=== PATIENT | male | born 1935 | race Caucasian/White ===

== ENCOUNTER 2020-02-23 18:52 | Inpatient (IN) | payer MEDICARE ==
[2020-02-23] MEDS: Amlodipine 5 MG TAB PO SCH (21:23)
[2020-02-23] MEDS: Gabapentin 300 MG CAP PO SCH (21:24)
[2020-02-23 23:52] VITALS: BMI 33.0
[2020-02-24] MEDS: Vit A,C & E/Lutein/Minerals Tablet PO SCH (07:54)
[2020-02-24] MEDS: Ascorbic Acid 500 mg Chewable Tablet PO SCH (07:54)
[2020-02-24] MEDS: Gabapentin 300 MG CAP PO SCH ×2 (07:55→21:05)
[2020-02-24] MEDS: Fish Oil 1,000 MG CAP PO SCH (07:55)
[2020-02-24] MEDS: Sucralfate 1 GM TAB PO SCH ×2 (07:55→17:08)
[2020-02-24] MEDS: Lisinopril 20 MG TAB PO SCH (07:55)
[2020-02-24] MEDS: Stress 600 With Zinc 1 TAB PO SCH (07:55)
[2020-02-24] MEDS ORDERED: Metoclopramide HCl 10 MG TAB PO SCH (13:45)
--- NOTE | 2020-02-24 16:54 | HP ---
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 He initially did well there with increasing strength, but continued to have significant pain in his back and weakness in his right leg. He therefore was seen back again at [facility], where he was found to have persistent scar tissue and arthritis in his lumbar spine causing persistent neurogenic claudication in his right leg. He has started on therapy and is improving, but is still very weak and in fact fell immediately after being discharged from [facility] prior to the second surgery. [place] [facility], strengthening, and safety training. His comorbidities include type 2 diabetes with peripheral neuropathy, stable; benign prostatic hypertrophy, stable, no medications; hypertension, controlled to goal; recurrent nausea and vomiting of whole fruit products, which was treated with Carafate and Protonix with good control at the rehab and no recurrence until today when he began to have similar symptoms. PAST MEDICAL HISTORY: Remarkable also for history of a TIA and a CVA, history of abdominal aortic aneurysm, osteoarthritis, Fanconi syndrome and dyslipidemia. This is in addition to his diabetes and hypertension. PAST SURGICAL HISTORY: Positive for the above-mentioned decompressive laminectomy x2, left knee replacement. ALLERGIES: HE IS ALLERGIC TO NEURONTIN AND OXYCODONE. MEDICATIONS: At this time include, 1. Tylenol No. 3 as needed for pain. 2. Amlodipine 10 mg nightly. 3. Gabapentin 300 twice daily. 4. Lisinopril 20 daily. 5. Sucralfate 1 g twice daily. 6. Tizanidine 4 mg as needed at night. 7. Tramadol 50 mg every 6 hours as needed. 8. Pantoprazole 40 mg daily. 9. Multivitamins daily. 10. Lisinopril 20 daily. FAMILY MEDICAL HISTORY: Noncontributory. SOCIAL HISTORY: He lives with his elderly . He is a nonsmoker, nondrinker. REVIEW OF SYSTEMS: HEENT: He denies any headaches, dizziness, change in vision or hearing, hoarseness or dysphagia, but does have the recurrent nausea and vomiting, and describes that his foods going all the way to his epigastric region and then refluxing. PULMONARY: Denies cough, sputum production, pneumonia, asthma or tuberculosis. CARDIOVASCULAR: Denies chest pain, orthopnea, paroxysmal nocturnal dyspnea or edema. GASTROINTESTINAL: See history of present illness. He has no history of nocturnal or daytime indigestion or heartburn, only rarely takes half a Tums after spicy foods. He has no nocturnal pain. No change in bowel movements. GENITOURINARY: Denies dysuria, hematuria or nocturia. MUSCULOSKELETAL: Denies stiffness or swelling in joints or extremities minimal pain. NEUROLOGIC: He has persistent diffuse weakness, right leg greater than the left, but is improving. PHYSICAL EXAMINATION: GENERAL: The patient is an elderly white male, lying in bed, no acute distress. Oriented x3 and cooperative. VITAL SIGNS: Blood pressure of 143/66, temperature 97, pulse 72, respirations 16, and O2 sats 99% on room air. HEENT: Pupils are equal, round, and reactive to light and accommodation. Sclerae anicteric. Conjunctivae pale. Oral mucous membranes well hydrated. NECK: Supple. There are no nodes or masses. JVP is not elevated. LUNGS: Clear. CARDIAC: Regular rhythm. No gallops or murmurs. ABDOMEN: Soft and nontender with no masses or organomegaly. SKIN/EXTREMITIES: No edema, clubbing or cyanosis. There is a healing laminectomy incision. NEUROLOGICAL: There is right leg weakness, but is able to lift off the bed against gravity. There is decreased sensation in both feet. ASSESSMENT: 1. Resolving lumbar laminectomy with neurogenic claudication, slowly improving. We will continue on PT with Tylenol No. 3 as needed for pain and Neurontin 300 mg twice daily also. 2. Recurrent nausea and vomiting improved with Carafate and pantoprazole at [facility], but now recurring and will have Speech evaluate and do possibly modified barium. 3. Hypertension, controlled to goal. Continue lisinopril and amlodipine. Job ID: [id number]
[2020-02-24] MEDS: Amlodipine 5 MG TAB PO SCH (21:05)
[2020-02-25] MEDS: Acetaminophen/Codeine 30-300mg Tablet PO PRN (08:11)
[2020-02-25] MEDS: Sucralfate 1 GM TAB PO SCH ×2 (08:12→16:31)
[2020-02-25] MEDS: Lisinopril 20 MG TAB PO SCH (08:13)
[2020-02-25] MEDS: Vit A,C & E/Lutein/Minerals Tablet PO SCH (08:13)
[2020-02-25] MEDS: Fish Oil 1,000 MG CAP PO SCH (08:13)
[2020-02-25] MEDS: Ascorbic Acid 500 mg Chewable Tablet PO SCH (08:13)
[2020-02-25] MEDS: Gabapentin 300 MG CAP PO SCH ×2 (08:13→21:06)
[2020-02-25] MEDS: Stress 600 With Zinc 1 TAB PO SCH (08:14)
[2020-02-25] MEDS: tiZANidine HCl 4 MG TAB PO PRN (21:06)
[2020-02-25] MEDS: Amlodipine 5 MG TAB PO SCH (21:06)
[2020-02-26] MEDS: Vit A,C & E/Lutein/Minerals Tablet PO SCH (08:45)
[2020-02-26] MEDS: Fish Oil 1,000 MG CAP PO SCH (08:45)
[2020-02-26] MEDS: Sucralfate 1 GM TAB PO SCH ×2 (08:45→16:33)
[2020-02-26] MEDS: Lisinopril 20 MG TAB PO SCH (08:46)
[2020-02-26] MEDS: Ascorbic Acid 500 mg Chewable Tablet PO SCH (08:46)
[2020-02-26] MEDS: Gabapentin 300 MG CAP PO SCH ×2 (08:46→20:20)
[2020-02-26] MEDS: Stress 600 With Zinc 1 TAB PO SCH (08:47)
[2020-02-26] MEDS: Acetaminophen/Codeine 30-300mg Tablet PO PRN (16:34)
[2020-02-26] MEDS: Amlodipine 5 MG TAB PO SCH (20:20)
[2020-02-26] MEDS: tiZANidine HCl 4 MG TAB PO PRN (20:39)
[2020-02-27] MEDS: Acetaminophen/Codeine 30-300mg Tablet PO PRN (05:31)
[2020-02-27] MEDS: Ascorbic Acid 500 mg Chewable Tablet PO SCH (08:05)
[2020-02-27] MEDS: Fish Oil 1,000 MG CAP PO SCH (08:05)
[2020-02-27] MEDS: Gabapentin 300 MG CAP PO SCH ×2 (08:05→21:43)
[2020-02-27] MEDS: Lisinopril 20 MG TAB PO SCH (08:06)
[2020-02-27] MEDS: Vit A,C & E/Lutein/Minerals Tablet PO SCH (08:06)
[2020-02-27] MEDS: Stress 600 With Zinc 1 TAB PO SCH (08:06)
[2020-02-27] MEDS: Sucralfate 1 GM TAB PO SCH ×2 (08:06→16:40)
--- NOTE | 2020-02-27 10:03 | PRG ---
DATE OF SERVICE: 02/26/2020 SUBJECTIVE: The patient feels well, working with therapy. States his leg is still very weak. States he is eating very well with no cough, shortness of breath, dyspnea. OBJECTIVE: VITAL SIGNS: However, his temperature is up to 100.4 this evening, pulse is 89, respirations 18, O2 sats 96% on room air, blood pressure 128/57. LUNGS: Clear. CARDIAC: Showed regular rhythm. ABDOMEN: Soft and nontender. NEUROLOGIC: Shows right leg weakness. ASSESSMENT: 1. Persistent right leg weakness, status post lumbar laminectomy. 2. New onset of low-grade fever, persistent for last 24 hours. We will get CBC and urinalysis. 3. History of dysphagia, but apparently has past speech evaluation. We will monitor closely. 4. The patient wishes to be transferred to Dr. Pacheco as he wishes to become his private physician and therefore transfer to Dr. Pacheco tomorrow. Job ID: [id number]
--- NOTE | 2020-02-27 10:22 | PRG ---
DATE OF SERVICE: 02/25/2020 SUBJECTIVE: The patient feels much better today, has been seen by Speech, found to be safe to swallow with double swallow techniques and sips of water with straw and states that he has done well today with no further problem and is eating well. He is scheduled to do physical therapy tomorrow. He did, however, developed a temperature is 99.7 pulse is 83, respirations 20, O2 saturations 99% on room air, blood pressure 121/53. He has had no cough or shortness of breath. Most recent laboratories at [facility] within normal limits, but we will check again tomorrow. OBJECTIVE: LUNGS: Clear. CARDIAC: Regular rhythm. ABDOMEN: Soft and nontender. SKIN/EXTREMITIES: Display no edema, clubbing, or cyanosis. Right leg still shows significant weakness. ASSESSMENT: Persistent right leg weakness, recurrent lumbar spinal stenosis. Persistent problems with some dysphagia, found to be safe, but now has a temperature of 99.1. We will monitor closely. PLAN: 1. Stress safe swallowing techniques. Start PT tomorrow. Continue sucralfate and pantoprazole. 2. Continue gabapentin and tramadol for pain as well as tizanidine as needed for muscle spasm. 3. Continue to monitor vital signs closely on amlodipine and lisinopril. Job ID: [id number]
[2020-02-27 10:25] LABS: #Basophils 0.1 thou/uL (0.0-0.2); #Eosinphils 0.2 thou/uL (0.0-0.7); #Lymphocytes 0.8 thou/uL (1.20-3.40); #Monocytes 0.6 thou/uL (0.11-0.59); #Neutrophils 9.1 thou/uL (1.40-6.50); %Basophils 0.5 % (0.0-1.0); %Eosinophils 2.1 % (0.0-10.0); %Lymphocytes 7.5 % (21.0-51.0); %Monocytes 5.9 % (0.0-10.0); Hemoglobin 12.6 g/dL (14.0-18.0); Mean Corpuscular HGB CONC 32.7 g/dL (32.0-36.0); Mean Corpuscular Hemoglobin 32.7 pg (27.0-31.0); Mean Platelet Volume 7.6 fL (7.4-10.4); Platelet Count 186 thou/uL (130-400); RBC Distribution Width 12.3 % (11.5-14.5); Red Blood Cell (RBC) Count 3.87 mill/uL (4.70-6.10); White Blood Cell (WBC) Count 10.8 thou/uL (4.8-10.8)
[2020-02-27 10:45] LABS: ALT (SGPT) 20 U/L (8-55); AST (SGOT) 26 U/L (5-34); Albumin 3.1 g/dL (3.4-4.8); Alkaline Phosphatase 56 U/L (40-110); Anion Gap 14 mmol/L (10-20); BUN (Urea Nitrogen) 23 mg/dL (8.4-25.7); Bilirubin, Total 0.7 mg/dL (0.2-1.2); Calc. Creatinine Clearance 81 mL/min (70-130); Calcium 8.2 mg/dL (7.8-10.44); Carbon Dioxide 23 mmol/L (23-31); Chloride 99 mmol/L (98-107); Estimated GFR-MDRD 62; Globulin 2.4 g/dL (2.4-3.5); Glucose 124 mg/dL (83-110); Potassium 4.3 mmol/L (3.5-5.1); Protein, Total 5.5 g/dL (5.8-8.1); Sodium 132 mmol/L (136-145)
--- NOTE | 2020-02-27 13:31 | PRG ---
DATE OF SERVICE: 02/27/2020 SUBJECTIVE: Mr. Lauren is up in his chair. He denies any complaints. He states that his right leg weakness and pain is improving. His acid reflux is doing well. He is eating foods more chopped with extra gravy and that is helping with his dysphagia. OBJECTIVE: VITAL SIGNS: He is afebrile. Heart rate 92, respirations 18, oxygen saturation 95% on room air, blood pressure 122/60. CARDIOVASCULAR: S1 and S2 plus. RESPIRATORY: Normal vesicular breath sounds. ABDOMEN: Soft, obese, nontender. Bowel sounds heard in all quadrants. EXTREMITIES: Without cyanosis or clubbing. CENTRAL NERVOUS SYSTEM: Improving right lower extremity weakness. LABORATORY DATA: White count is 10.8, hemoglobin and hematocrit are 12.6 and 38.7. Sodium 132, potassium 4.3, BUN and creatinine are 23 and 1.13. He has macrocytosis. We will check a vitamin B12 and a folic acid level. IMPRESSION: 1. Right lumbar radiculopathy, status post surgery. 2. Hypertension. 3. Peripheral neuropathy. 4. Gastroesophageal reflux disease. 5. Osteoarthritis. 6. Improving deconditioning. 7. History of TIA and CVA. 8. Fanconi syndrome and dyslipidemia. PLAN: 1. Continue current medications. 2. Heart healthy diet. 3. Monitor blood pressure and adjust medications as needed. 4. Spinal precautions. 5. Physical therapy. 6. DVT prophylaxis with PlexiPulses. 7. Decubitus precautions. 8. Stress ulcer prophylaxis. 9. Check folic acid and B12 due to macrocytosis. 10. Discussed with the patient in detail. All questions answered. Job ID: [id number]
[2020-02-27 13:48] LABS: Bilirubin Negative (Negative); Blood, Urine Negative (Negative); Clarity Clear (Clear); Glucose, Urine (Dipstick) 500 mg/dL (Negative); Ketone, Urine Trace mg/dL (Negative); Leukocyte Negative (Negative); Nitrite Negative (Negative); Protein, Urine (Dipstick) Trace mg/dL (Neg-Trace); Specific Gravity, Urine 1.015 (1.005-1.030); Urobilinogen 0.2 mg/dL (Less than 2); pH, Urine 5.5 (5.0-9.0)
[2020-02-27 13:53] LABS: Urine Culture Reflex No No
--- NOTE | 2020-02-27 13:53 | RAD ---
CHEST 1 VIEW: INDICATION: History of aspiration. COMPARISON: Prior exam dated 04/30/2013. FINDINGS: Lungs are clear. Heart size is normal-appearing. No pleural effusion or pneumothorax is evident. N o acute osseous abnormality is noted. There are vascular calcifications involving the aortic arch. IMPRESSION: No acute cardiopulmonary abnormality. POS: BH
[2020-02-27 14:19] LABS: RBC/HPF None Seen HPF (0-3); WBC/HPF 0-3 HPF (0-3)
[2020-02-27 14:20] LABS: Bacteria/HPF Rare-Few HPF (None Seen); Squamous Epithelial None Seen HPF (0-3)
[2020-02-27] MEDS: Amlodipine 5 MG TAB PO SCH (21:42)
[2020-02-28] MEDS: Acetaminophen/Codeine 30-300mg Tablet PO PRN ×2 (06:17→16:58)
[2020-02-28] MEDS: Ascorbic Acid 500 mg Chewable Tablet PO SCH (08:01)
[2020-02-28] MEDS: Gabapentin 300 MG CAP PO SCH ×2 (08:01→20:55)
[2020-02-28] MEDS: Vit A,C & E/Lutein/Minerals Tablet PO SCH (08:02)
[2020-02-28] MEDS: Sucralfate 1 GM TAB PO SCH ×2 (08:05→16:55)
[2020-02-28] MEDS: Fish Oil 1,000 MG CAP PO SCH (08:05)
[2020-02-28] MEDS: Lisinopril 20 MG TAB PO SCH (08:05)
[2020-02-28] MEDS: Stress 600 With Zinc 1 TAB PO SCH (08:05)
--- NOTE | 2020-02-28 13:32 | PRG ---
DATE OF SERVICE: 02/28/2020 SUBJECTIVE: Mr. Lauren is resting in bed. He states that he feels really fatigued today. He apparently slept decently, but felt really weak after having a good bowel movement. He did participate with therapy and apparently stood for 5 minutes. He looks more anxious and depressed, and he is willing to take an antidepressant. He denies any suicidal or homicidal ideation. No family at bedside. Discussed with Therapy. OBJECTIVE: VITAL SIGNS: He is afebrile, heart rate 81, respirations 18, oxygen saturation 95% on room air, and blood pressure 119/58. CARDIOVASCULAR: S1 and S2 plus. RESPIRATORY: Normal vesicular breath sounds. ABDOMEN: Soft and nontender. Bowel sounds heard in all quadrants. EXTREMITIES: Without cyanosis or clubbing. CENTRAL NERVOUS SYSTEM: Improving right leg weakness. LABORATORY DATA: His folic acid is 17.4 and B12 is 874. IMPRESSION: 1. Macrocytosis with normal folic acid and B12. 2. Lumbar radiculopathy, status post recent surgery. 3. Hyponatremia. 4. Possible depression and anxiety. 5. Hypertension. 6. Peripheral neuropathy. 7. Gastroesophageal reflux disease. 8. Osteoarthritis. 9. Fanconi syndrome. 10. Dyslipidemia. PLAN: 1. Continue current medications, but add Zoloft 50 mg daily. 2. Continue heart-healthy diet. 3. Monitor blood pressure and adjust medications. 4. Spinal precautions. 5. Physical therapy. 6. DVT prophylaxis with PlexiPulses. 7. Decubitus precautions. 8. Routine laboratory values. Job ID: [id number]
[2020-02-28] MEDS: Amlodipine 5 MG TAB PO SCH (20:55)
[2020-02-29] MEDS: Sucralfate 1 GM TAB PO SCH ×2 (08:00→16:17)
[2020-02-29] MEDS: Gabapentin 300 MG CAP PO SCH ×2 (08:00→21:42)
[2020-02-29] MEDS: Lisinopril 20 MG TAB PO SCH (08:01)
[2020-02-29] MEDS: Fish Oil 1,000 MG CAP PO SCH (08:01)
[2020-02-29] MEDS: Vit A,C & E/Lutein/Minerals Tablet PO SCH (08:01)
[2020-02-29] MEDS: Ascorbic Acid 500 mg Chewable Tablet PO SCH (08:01)
[2020-02-29] MEDS: Stress 600 With Zinc 1 TAB PO SCH (08:02)
--- NOTE | 2020-02-29 14:17 | PRG ---
DATE OF SERVICE: 02/29/2020 SUBJECTIVE: He states that he is doing better today. He is up in his chair. They did need to use a lift. He is tolerating his Zoloft. OBJECTIVE: VITAL SIGNS: He is afebrile, heart rate 79, respirations 18, oxygen saturation 93% on room air, and blood pressure 122/56. CARDIOVASCULAR SYSTEM: S1 and S2 plus. RESPIRATORY SYSTEM: Normal vesicular breath sounds. ABDOMEN: Soft, nontender. Bowel sounds heard in all quadrants. EXTREMITIES: Without cyanosis or clubbing. CENTRAL NERVOUS SYSTEM: Improving right-sided weakness. IMPRESSION: 1. Lumbar radiculopathy, status post recent surgery. 2. Hyponatremia, stable. 3. Hypertension. 4. Peripheral neuropathy. 5. Gastroesophageal reflux disease. 6. Osteoarthritis. 7. Dyslipidemia. 8. Fanconi syndrome. PLAN: 1. Continue current medications. 2. Nutritional support with heart healthy diet. 3. DVT prophylaxis with PlexiPulses. 4. Decubitus precautions. 5. Stress ulcer prophylaxis. 6. Recheck BMP in the morning. 7. Physical therapy. 8. Spinal precautions. 9. Continue Zoloft for depression and anxiety. Job ID: [id number]
[2020-02-29] MEDS: Acetaminophen/Codeine 30-300mg Tablet PO PRN (15:13)
[2020-02-29] MEDS: tiZANidine HCl 4 MG TAB PO PRN (15:14)
[2020-02-29] MEDS: Amlodipine 5 MG TAB PO SCH (21:41)
[2020-03-01 05:40] LABS: Anion Gap 13 mmol/L (10-20); BUN (Urea Nitrogen) 17 mg/dL (8.4-25.7); Calc. Creatinine Clearance 101 mL/min (70-130); Carbon Dioxide 23 mmol/L (23-31); Chloride 99 mmol/L (98-107); Estimated GFR-MDRD 79; Glucose 112 mg/dL (83-110); Potassium 4.5 mmol/L (3.5-5.1); Sodium 130 mmol/L (136-145)
[2020-03-01] MEDS: Acetaminophen/Codeine 30-300mg Tablet PO PRN (08:06)
[2020-03-01] MEDS: Sucralfate 1 GM TAB PO SCH ×2 (08:06→17:09)
[2020-03-01] MEDS: Vit A,C & E/Lutein/Minerals Tablet PO SCH (08:08)
[2020-03-01] MEDS: Gabapentin 300 MG CAP PO SCH ×2 (08:08→21:24)
[2020-03-01] MEDS: Fish Oil 1,000 MG CAP PO SCH (08:08)
[2020-03-01] MEDS: Ascorbic Acid 500 mg Chewable Tablet PO SCH (08:09)
[2020-03-01] MEDS: Stress 600 With Zinc 1 TAB PO SCH (08:10)
--- NOTE | 2020-03-01 09:36 | PRG ---
DATE OF SERVICE: 03/01/2020 SUBJECTIVE: Mr. Lauren is up in bed. He denies any questions or concerns. I gave parameters for his blood pressure medicines to nursing. Discussed with therapy. OBJECTIVE: VITAL SIGNS: He is afebrile, heart rate 84, respirations 20, oxygen saturation 96% on room air, blood pressure 119/56. CARDIOVASCULAR SYSTEM: S1 and S2 plus. RESPIRATORY SYSTEM: Normal vesicular breath sounds. ABDOMEN: Soft, nontender. Bowel sounds heard in all quadrants. EXTREMITIES: Without cyanosis or clubbing. CENTRAL NERVOUS SYSTEM: Improving right-sided weakness. IMPRESSION: 1. Lumbar radiculopathy, status post recent surgery with persistent right-sided weakness. 2. Hypertension. 3. Peripheral neuropathy. 4. Gastroesophageal reflux disease. 5. Dyslipidemia. 6. Osteoarthritis. 7. Fanconi syndrome. 8. Hyponatremia. His sodium is 130 today, potassium 4.5, BUN and creatinine are 17 and 0.91. PLAN: 1. Continue current medications. 2. Nutritional support. 3. Spinal precautions. 4. DVT prophylaxis with PlexiPulses. 5. Decubitus precautions. 6. Stress ulcer prophylaxis. 7. Continue therapy. 8. Routine laboratory values. 9. Parameters for his blood pressure medications. Job ID: [id number]
[2020-03-01] MEDS: Lisinopril 20 MG TAB PO SCH (17:07)
[2020-03-01] MEDS: tiZANidine HCl 4 MG TAB PO PRN (21:24)
[2020-03-01] MEDS: Amlodipine 5 MG TAB PO SCH (21:24)
[2020-03-02] MEDS: Ascorbic Acid 500 mg Chewable Tablet PO SCH (09:31)
[2020-03-02] MEDS: Gabapentin 300 MG CAP PO SCH ×2 (09:31→21:02)
[2020-03-02] MEDS: Fish Oil 1,000 MG CAP PO SCH (09:31)
[2020-03-02] MEDS: Lisinopril 20 MG TAB PO SCH (09:31)
[2020-03-02] MEDS: Sucralfate 1 GM TAB PO SCH ×2 (09:32→15:56)
[2020-03-02] MEDS: Vit A,C & E/Lutein/Minerals Tablet PO SCH (09:32)
[2020-03-02] MEDS: Stress 600 With Zinc 1 TAB PO SCH (09:33)
--- NOTE | 2020-03-02 16:00 | PRG ---
DATE OF SERVICE: 03/02/2020 SUBJECTIVE: Mr. Lauren is resting in bed. He denies any complaints other than problems with urination. He is complaining of more of hesitancy and urgency, sounds more like a BPH issue. We will do a urinalysis and a urine culture and start him on Flomax. He is doing well otherwise. OBJECTIVE: VITAL SIGNS: He is afebrile. Heart rate 79, respirations 18, oxygen saturation 94% on room air, blood pressure 134/63. CARDIOVASCULAR: S1 and S2 plus. RESPIRATORY: Normal vesicular breath sounds. ABDOMEN: Soft and nontender. Bowel sounds heard in all quadrants. EXTREMITIES: Without cyanosis or clubbing. CENTRAL NERVOUS SYSTEM: Improving right leg weakness. IMPRESSION: 1. Lumbar radiculopathy, status post surgery with persistent right-sided weakness. 2. Macrocytic anemia with normal B12 and folate. 3. Benign prostatic hypertrophy. 4. Hypertension. 5. Dyslipidemia. 6. Osteoarthritis. 7. Fanconi syndrome. 8. Gastroesophageal reflux disease. 9. Peripheral neuropathy. 10. Hyponatremia, chronic. PLAN: 1. Continue current medications. 2. Add Flomax 0.4 mg at bedtime. 3. Check urinalysis and urine culture. 4. DVT prophylaxis with PlexiPulses. 5. Decubitus precautions. 6. Stress ulcer prophylaxis. 7. Heart-healthy diet. 8. Continue therapy. 9. Routine laboratory values. Job ID: [id number]
[2020-03-02 19:55] LABS: Bilirubin Negative (Negative); Blood, Urine Negative (Negative); Clarity Clear (Clear); Glucose, Urine (Dipstick) 500 mg/dL (Negative); Ketone, Urine Negative (Negative); Leukocyte Negative (Negative); Nitrite Negative (Negative); Protein, Urine (Dipstick) Negative (Neg-Trace)
[2020-03-02 20:08] LABS: Bacteria/HPF None Seen HPF (None Seen); RBC/HPF 0-3 HPF (0-3); Squamous Epithelial None Seen HPF (0-3); Urine Culture Reflex No No; WBC/HPF None Seen HPF (0-3)
[2020-03-02] MEDS: Tamsulosin HCl 0.4 MG CAP PO SCH (21:02)
[2020-03-02] MEDS: Amlodipine 5 MG TAB PO SCH (21:03)
[2020-03-02] MEDS: tiZANidine HCl 4 MG TAB PO PRN (21:05)
[2020-03-03] MEDS: Fish Oil 1,000 MG CAP PO SCH (08:42)
[2020-03-03] MEDS: Lisinopril 20 MG TAB PO SCH (08:42)
[2020-03-03] MEDS: Vit A,C & E/Lutein/Minerals Tablet PO SCH (08:42)
[2020-03-03] MEDS: Sucralfate 1 GM TAB PO SCH ×2 (08:42→17:09)
[2020-03-03] MEDS: Ascorbic Acid 500 mg Chewable Tablet PO SCH (08:43)
[2020-03-03] MEDS: Gabapentin 300 MG CAP PO SCH ×2 (08:43→20:24)
[2020-03-03] MEDS: Stress 600 With Zinc 1 TAB PO SCH (08:44)
--- NOTE | 2020-03-03 11:52 | PRG ---
DATE OF SERVICE: 03/03/2020 SUBJECTIVE: Mr. Lauren is resting in bed. His spouse is in the room. He denies any side effects from the Flomax. All questions answered. I encouraged him to focus on one day at a time and try to do a little bit more each day with therapy. OBJECTIVE: VITAL SIGNS: He is afebrile, heart rate 76, respirations 20, oxygen saturation 92% on room air, and blood pressure 133/63. CARDIOVASCULAR SYSTEM: S1 and S2 plus. RESPIRATORY SYSTEM: Normal vesicular breath sounds. ABDOMEN: Soft and nontender. Bowel sounds heard in all quadrants. EXTREMITIES: Without cyanosis or clubbing. CENTRAL NERVOUS SYSTEM: Grossly nonfocal except for persistent right leg weakness. IMPRESSION: 1. Lumbar radiculopathy. 2. Macrocytic anemia with normal B12 and folic acid. 3. Anemia, likely due to acute blood loss. 4. Hypertension. 5. Dyslipidemia. 6. Fanconi syndrome. 7. Osteoarthritis. 8. Depression. 9. Benign prostatic hypertrophy. PLAN: 1. Continue current medications. 2. Heart healthy diet. 3. Spinal precautions. 4. DVT prophylaxis with PlexiPulses. 5. Decubitus precautions. 6. Stress ulcer prophylaxis. 7. Physical therapy. 8. Routine laboratory values. Job ID: [id number]
[2020-03-03] MEDS: Acetaminophen/Codeine 30-300mg Tablet PO PRN (20:23)
[2020-03-03] MEDS: tiZANidine HCl 4 MG TAB PO PRN (20:24)
[2020-03-03] MEDS: Tamsulosin HCl 0.4 MG CAP PO SCH (20:24)
[2020-03-03] MEDS: Amlodipine 5 MG TAB PO SCH (20:24)
[2020-03-04] MEDS: Fish Oil 1,000 MG CAP PO SCH (08:45)
[2020-03-04] MEDS: Sucralfate 1 GM TAB PO SCH ×2 (08:45→17:40)
[2020-03-04] MEDS: Gabapentin 300 MG CAP PO SCH ×2 (08:45→20:54)
[2020-03-04] MEDS: Ascorbic Acid 500 mg Chewable Tablet PO SCH (08:45)
[2020-03-04] MEDS: Vit A,C & E/Lutein/Minerals Tablet PO SCH (08:45)
[2020-03-04] MEDS: Lisinopril 20 MG TAB PO SCH (08:46)
[2020-03-04] MEDS: Stress 600 With Zinc 1 TAB PO SCH (08:46)
[2020-03-04] MEDS: Acetaminophen/Codeine 30-300mg Tablet PO PRN ×2 (08:52→20:53)
--- NOTE | 2020-03-04 14:04 | PRG ---
DATE OF SERVICE: 03/04/2020 SUBJECTIVE: Mr. Lauren is up in his chair. He just finished his lunch. He feels like the [place] is helping. He denies any questions or concerns. OBJECTIVE: VITAL SIGNS: He is afebrile. Heart rate 93, respirations 18, oxygen saturation 93% on room air, blood pressure 137/64. CARDIOVASCULAR: S1 and S2 plus. RESPIRATORY: Normal vesicular breath sounds. ABDOMEN: Soft, nontender. Bowel sounds heard in all quadrants. EXTREMITIES: Without cyanosis or clubbing. CENTRAL NERVOUS SYSTEM: Right leg weakness and pain from his radiculopathy. IMPRESSION: 1. Hypertension. 2. Dyslipidemia. 3. BPH. 4. Depression and anxiety. 5. Lumbar radiculopathy. 6. Fanconi syndrome. 7. Deconditioning. PLAN: 1. Continue current medications. 2. Heart healthy diet. 3. Monitor urine output. 4. Monitor blood pressure and adjust medications as needed. 5. Physical therapy. 6. DVT prophylaxis with PlexiPulses. 7. Decubitus precautions. 8. Stress ulcer prophylaxis. 9. Routine laboratory values. Job ID: [id number]
[2020-03-04] MEDS: Amlodipine 5 MG TAB PO SCH (20:53)
[2020-03-04] MEDS: tiZANidine HCl 4 MG TAB PO PRN (20:54)
[2020-03-04] MEDS: Tamsulosin HCl 0.4 MG CAP PO SCH (20:54)
[2020-03-05] MEDS: Acetaminophen/Codeine 30-300mg Tablet PO PRN ×2 (08:03→21:10)
[2020-03-05] MEDS: Ascorbic Acid 500 mg Chewable Tablet PO SCH (08:04)
[2020-03-05] MEDS: Sucralfate 1 GM TAB PO SCH ×2 (08:05→17:55)
[2020-03-05] MEDS: Vit A,C & E/Lutein/Minerals Tablet PO SCH (08:05)
[2020-03-05] MEDS: Fish Oil 1,000 MG CAP PO SCH (08:05)
[2020-03-05] MEDS: Lisinopril 20 MG TAB PO SCH (08:06)
[2020-03-05] MEDS: Gabapentin 300 MG CAP PO SCH ×3 (08:06→21:10)
[2020-03-05] MEDS: Stress 600 With Zinc 1 TAB PO SCH (08:06)
--- NOTE | 2020-03-05 13:54 | PRG ---
DATE OF SERVICE: 03/05/2020 SUBJECTIVE: Mr. Lauren is up in his chair. He states that he is not doing as well today as he did yesterday. His urination seems to be improving. No other concerns or questions. OBJECTIVE: VITAL SIGNS: He is afebrile. Heart rate 95, respirations 18, oxygen saturation 97% on room air, blood pressure 119/60. CARDIOVASCULAR: S1 and S2 plus. RESPIRATORY: Normal vesicular breath sounds. ABDOMEN: Soft, nontender. Bowel sounds heard in all quadrants. EXTREMITIES: Without cyanosis or clubbing. IMPRESSION: 1. Lumbar radiculopathy with persistent right-sided weakness. 2. Depression. 3. BPH. 4. Hypertension. 5. Dyslipidemia. 6. Osteoarthritis. 7. Fanconi syndrome. PLAN: 1. Continue current medications. 2. Nutritional support. 3. Heart healthy diet. 4. Continue therapy. 5. Increase gabapentin. 6. DVT prophylaxis with PlexiPulses. 7. Decubitus precautions. 8. Routine laboratory values. Job ID: [id number]
[2020-03-05] MEDS: Amlodipine 5 MG TAB PO SCH (21:10)
[2020-03-05] MEDS: Tamsulosin HCl 0.4 MG CAP PO SCH (21:10)
[2020-03-06] MEDS: Fish Oil 1,000 MG CAP PO SCH (08:19)
[2020-03-06] MEDS: Acetaminophen/Codeine 30-300mg Tablet PO PRN ×2 (08:19→20:47)
[2020-03-06] MEDS: Stress 600 With Zinc 1 TAB PO SCH (08:20)
[2020-03-06] MEDS: Ascorbic Acid 500 mg Chewable Tablet PO SCH (08:20)
[2020-03-06] MEDS: Sucralfate 1 GM TAB PO SCH ×2 (08:20→16:02)
[2020-03-06] MEDS: Gabapentin 300 MG CAP PO SCH ×3 (08:20→20:48)
[2020-03-06] MEDS: Vit A,C & E/Lutein/Minerals Tablet PO SCH (08:20)
[2020-03-06] MEDS: Lisinopril 20 MG TAB PO SCH (08:21)
--- NOTE | 2020-03-06 13:27 | PRG ---
DATE OF SERVICE: 03/06/2020 SUBJECTIVE: Mr. Lauren is doing well. He states that he is feeling better today than yesterday, apparently did better with therapy. He does have some red spots in his right thigh, but they are not causing him any pain. He is not having any shooting or burning pain. He does have history of shingles, but he states they are usually painful and he usually gets them in the left lower back. Denies any itching. Denies any drainage. We will continue to monitor. His mood is also better. OBJECTIVE: VITAL SIGNS: He is afebrile, heart rate 80, respirations 18, oxygen saturation 96% on room air, blood pressure 122/59. CARDIOVASCULAR: S1 and S2 plus. RESPIRATORY: Normal vesicular breath sounds. ABDOMEN: Soft and nontender. Bowel sounds heard in all quadrants. EXTREMITIES: Without cyanosis or clubbing. CENTRAL NERVOUS SYSTEM: Right leg weakness. IMPRESSION: 1. Hypertension. 2. Dyslipidemia. 3. Osteoarthritis. 4. Fanconi syndrome. 5. Depression. 6. Lumbar radiculopathy to the right leg. PLAN: 1. Continue current medications. 2. Heart healthy diet. 3. Monitor blood pressure and adjust medications. 4. Spinal precautions. 5. Physical therapy. 6. Continue Flomax for his BPH. 7. Routine laboratory values. 8. Monitor the rash in his right leg. Job ID: [id number]
[2020-03-06] MEDS: Tamsulosin HCl 0.4 MG CAP PO SCH (20:48)
[2020-03-06] MEDS: Amlodipine 5 MG TAB PO SCH (20:48)
[2020-03-07] MEDS: Vit A,C & E/Lutein/Minerals Tablet PO SCH (08:20)
[2020-03-07] MEDS: Lisinopril 20 MG TAB PO SCH (08:21)
[2020-03-07] MEDS: Ascorbic Acid 500 mg Chewable Tablet PO SCH (08:21)
[2020-03-07] MEDS: Acetaminophen/Codeine 30-300mg Tablet PO PRN ×2 (08:21→22:00)
[2020-03-07] MEDS: Sucralfate 1 GM TAB PO SCH ×2 (08:21→16:54)
[2020-03-07] MEDS: Fish Oil 1,000 MG CAP PO SCH (08:21)
[2020-03-07] MEDS: Gabapentin 300 MG CAP PO SCH ×3 (08:21→21:49)
[2020-03-07] MEDS: Stress 600 With Zinc 1 TAB PO SCH (08:22)
--- NOTE | 2020-03-07 13:44 | PRG ---
DATE OF SERVICE: 03/07/2020 SUBJECTIVE: Mr. Lauren is doing the same. Denies any concerns recently. He is improving with therapy. OBJECTIVE: VITAL SIGNS: He is afebrile, heart rate 88, respirations 18, oxygen saturation 100% on room air, blood pressure 130/60. CARDIOVASCULAR: S1 and S2 plus. RESPIRATORY: Normal vesicular breath sounds. ABDOMEN: Soft and nontender. Bowel sounds heard in all quadrants. EXTREMITIES: Without cyanosis or clubbing. IMPRESSION: 1. Lumbar spine radiculopathy. 2. Hypertension. 3. Dyslipidemia. 4. Osteoarthritis. 5. Fanconi syndrome. 6. Benign prostatic hypertrophy. 7. Depression. PLAN: 1. Continue current medications. 2. Heart healthy diet. 3. Spinal precautions. 4. DVT prophylaxis with PlexiPulses. 5. Decubitus precautions. 6. Stress ulcer prophylaxis. 7. Routine laboratory values. Job ID: [id number]
[2020-03-07] MEDS: Tamsulosin HCl 0.4 MG CAP PO SCH (21:49)
[2020-03-07] MEDS: Amlodipine 5 MG TAB PO SCH (21:49)
[2020-03-07] MEDS: tiZANidine HCl 4 MG TAB PO PRN (22:00)
[2020-03-08] MEDS: Gabapentin 300 MG CAP PO SCH ×3 (08:06→20:36)
[2020-03-08] MEDS: Fish Oil 1,000 MG CAP PO SCH (08:06)
[2020-03-08] MEDS: Vit A,C & E/Lutein/Minerals Tablet PO SCH (08:06)
[2020-03-08] MEDS: Sucralfate 1 GM TAB PO SCH ×2 (08:06→17:00)
[2020-03-08] MEDS: Ascorbic Acid 500 mg Chewable Tablet PO SCH (08:06)
[2020-03-08] MEDS: Stress 600 With Zinc 1 TAB PO SCH (08:07)
[2020-03-08] MEDS: Lisinopril 20 MG TAB PO SCH (08:08)
[2020-03-08] MEDS: Amlodipine 5 MG TAB PO SCH (20:35)
[2020-03-08] MEDS: Tamsulosin HCl 0.4 MG CAP PO SCH (20:36)
[2020-03-09] MEDS: Sucralfate 1 GM TAB PO SCH ×2 (07:50→17:04)
[2020-03-09] MEDS: Lisinopril 20 MG TAB PO SCH (07:51)
[2020-03-09] MEDS: Ascorbic Acid 500 mg Chewable Tablet PO SCH (07:51)
[2020-03-09] MEDS: Vit A,C & E/Lutein/Minerals Tablet PO SCH (07:51)
[2020-03-09] MEDS: Fish Oil 1,000 MG CAP PO SCH (07:51)
[2020-03-09] MEDS: Gabapentin 300 MG CAP PO SCH ×3 (07:51→21:49)
[2020-03-09] MEDS: Stress 600 With Zinc 1 TAB PO SCH (07:52)
[2020-03-09] MEDS: Acetaminophen/Codeine 30-300mg Tablet PO PRN ×2 (08:28→21:52)
[2020-03-09] MEDS: Amlodipine 5 MG TAB PO SCH (21:49)
[2020-03-09] MEDS: Tamsulosin HCl 0.4 MG CAP PO SCH (21:49)
[2020-03-09] MEDS: tiZANidine HCl 4 MG TAB PO PRN (21:49)
--- NOTE | 2020-03-10 07:00 | PRG ---
DATE OF SERVICE: 03/09/2020 SUBJECTIVE: The patient lying in bed, feels well. He states that his leg is getting better, but still not where he wishes to be. OBJECTIVE: EXTREMITIES: The patient is able to dorsiflex his right foot and lift his foot off the bed with assistance. VITAL SIGNS: Show his temperature is 97, pulse 71, respirations 16, O2 saturations 97% on room air, and blood pressure 116/74. LUNGS: Clear. CARDIAC: Shows regular rhythm. ABDOMEN: Soft and nontender. ASSESSMENT: 1. Persistent right lumbar radiculopathy, status post repeat decompression laminectomy. 2. Benign prostatic hyperplasia, stable. 3. Depression, stable. 4. Hypertension, controlled to goal. PLAN: 1. Continue PT/OT. 2. Continue DVT and stress ulcer prophylaxis. 3. The patient to follow up with Neurosurgery next week at his request. Job ID: [id number]
[2020-03-10] MEDS: Sucralfate 1 GM TAB PO SCH ×2 (07:49→16:42)
[2020-03-10] MEDS: Ascorbic Acid 500 mg Chewable Tablet PO SCH (08:45)
[2020-03-10] MEDS: Vit A,C & E/Lutein/Minerals Tablet PO SCH (08:45)
[2020-03-10] MEDS: Lisinopril 20 MG TAB PO SCH (08:45)
[2020-03-10] MEDS: Fish Oil 1,000 MG CAP PO SCH (08:45)
[2020-03-10] MEDS: Gabapentin 300 MG CAP PO SCH ×3 (08:45→20:28)
[2020-03-10] MEDS: Stress 600 With Zinc 1 TAB PO SCH (08:46)
[2020-03-10] MEDS: Acetaminophen/Codeine 30-300mg Tablet PO PRN ×2 (14:49→20:28)
--- NOTE | 2020-03-10 20:15 | PRG ---
DATE OF SERVICE: 03/10/[address] Greg Tai. SUBJECTIVE: The patient is sitting in a chair, feels well, but still unable to lift his foot off the floor or extend his knee. He is having some tenderness in his knee, but not on passive movement. OBJECTIVE: VITAL SIGNS: Shows temperature is 96, pulse 75, respirations 18, O2 saturations 96% on room air, blood pressure 137/64. LUNGS: Clear. CARDIAC: Showed regular rhythm. ABDOMEN: Soft and nontender. SKIN AND EXTREMITIES: Show no edema, clubbing, or cyanosis. Right lower leg extension is very weak. ASSESSMENT: 1. Persistent right lumbar radiculopathy. 2. Stable hypertension. 3. Stable benign prostatic hypertrophy. PLAN: 1. Continue PT and OT. 2. Continue DVT and stress ulcer prophylaxis. 3. Continue current medications. Job ID: [id number]
[2020-03-10] MEDS: tiZANidine HCl 4 MG TAB PO PRN (20:28)
[2020-03-10] MEDS: Amlodipine 5 MG TAB PO SCH (20:28)
[2020-03-10] MEDS: Tamsulosin HCl 0.4 MG CAP PO SCH (20:28)
[2020-03-11] MEDS: Gabapentin 300 MG CAP PO SCH ×3 (09:20→20:56)
[2020-03-11] MEDS: Fish Oil 1,000 MG CAP PO SCH (09:20)
[2020-03-11] MEDS: Sucralfate 1 GM TAB PO SCH ×2 (09:20→17:20)
[2020-03-11] MEDS: Vit A,C & E/Lutein/Minerals Tablet PO SCH (09:20)
[2020-03-11] MEDS: Ascorbic Acid 500 mg Chewable Tablet PO SCH (09:20)
[2020-03-11] MEDS: Stress 600 With Zinc 1 TAB PO SCH (09:21)
[2020-03-11] MEDS: Lisinopril 20 MG TAB PO SCH (09:21)
--- NOTE | 2020-03-11 13:12 | PRG ---
DATE OF SERVICE: 03/11/2020 SUBJECTIVE: Mr. German is up in his chair. He just finished his lunch. He states that he is doing better. The pain seems to be under control. OBJECTIVE: VITAL SIGNS: He is afebrile, heart rate 83, respirations 20, oxygen saturation 98% on room air, blood pressure 137/61. CARDIOVASCULAR: S1 and S2 plus. RESPIRATORY: Normal vesicular breath sounds. ABDOMEN: Soft and nontender. Bowel sounds heard in all quadrants. EXTREMITIES: Without cyanosis or clubbing. CENTRAL NERVOUS SYSTEM: Right leg radiculopathy and weakness. IMPRESSION: 1. Lumbar radiculopathy, status post surgery, now with persistent right-sided weakness. 2. Hypertension. 3. Dyslipidemia. 4. Benign prostatic hypertrophy. 5. Fanconi syndrome. PLAN: 1. Continue current medications. 2. Heart healthy diet. 3. Continue current medications. 4. DVT prophylaxis with PlexiPulses. 5. Decubitus precautions. 6. Stress ulcer prophylaxis. 7. Schedule appointment with Dr. Townsend for followup. He apparently does not have a followup appointment, just to see if there is anything else that can be done. 8. Continue therapy. 9. Routine laboratory values. Job ID: [id number]
[2020-03-11] MEDS: Tamsulosin HCl 0.4 MG CAP PO SCH (20:56)
[2020-03-11] MEDS: Amlodipine 5 MG TAB PO SCH (20:56)
[2020-03-11] MEDS: tiZANidine HCl 4 MG TAB PO PRN (20:57)
--- NOTE | 2020-03-12 05:17 | PRG ---
DATE OF SERVICE: 03/08/2020 SUBJECTIVE: Mr. Lauren is doing the same. Denies any complaints. Resting comfortably. OBJECTIVE: VITAL SIGNS: He is afebrile. Heart rate is 84, respirations 20, oxygen saturation 93% on room air, blood pressure 132/76. CARDIOVASCULAR: S1 and S2 plus. RESPIRATORY: Normal vesicular breath sounds. ABDOMEN: Soft, nontender. Bowel sounds heard in all quadrants. EXTREMITIES: Without cyanosis or clubbing. CENTRAL NERVOUS SYSTEM: Persistent right leg weakness. IMPRESSION: 1. Lumbar radiculopathy, status post decompression with persistent right leg weakness. 2. Fanconi syndrome. 3. Hypertension. 4. Dyslipidemia. 5. BPH. 6. Neuropathic pain. PLAN: 1. Continue current medications. 2. Heart healthy diet. 3. Monitor blood pressure and adjust medications. 4. Monitor urination. 5. Physical therapy. 6. Follow up with Neurosurgery. 7. Routine laboratory values. 8. Discussed with the patient in detail. All questions answered. 9. Dr. Burnett on-call this weekend. Job ID: [id number]
[2020-03-12] MEDS: Acetaminophen/Codeine 30-300mg Tablet PO PRN ×3 (09:04→20:50)
[2020-03-12] MEDS: Ascorbic Acid 500 mg Chewable Tablet PO SCH (09:05)
[2020-03-12] MEDS: Sucralfate 1 GM TAB PO SCH ×2 (09:05→16:31)
[2020-03-12] MEDS: Vit A,C & E/Lutein/Minerals Tablet PO SCH (09:05)
[2020-03-12] MEDS: Gabapentin 300 MG CAP PO SCH ×3 (09:06→20:50)
[2020-03-12] MEDS: Lisinopril 20 MG TAB PO SCH (09:06)
[2020-03-12] MEDS: Fish Oil 1,000 MG CAP PO SCH (09:06)
[2020-03-12] MEDS: Stress 600 With Zinc 1 TAB PO SCH (09:10)
--- NOTE | 2020-03-12 12:48 | PRG ---
DATE OF SERVICE: 03/12/2020 SUBJECTIVE: Mr. Lauren is up in his chair. He just finished his lunch. He denies any questions or concerns. He feels like the Flomax is helping, but he still does not feel like the strong enough. Plan is to change it to twice daily. He apparently stood up in the standing frame for a little while. He has a followup appointment with his neurosurgeon coming Wednesday. No family at bedside. OBJECTIVE: VITAL SIGNS: He is afebrile, heart rate 79, respirations 20, oxygen saturation 99% on room air, and blood pressure 118/56. CARDIOVASCULAR: S1 and S2 plus. RESPIRATORY: Normal vesicular breath sounds. ABDOMEN: Soft, nontender. Bowel sounds heard in all quadrants. EXTREMITIES: Without cyanosis or clubbing. CENTRAL NERVOUS SYSTEM: Persistent right-sided weakness. IMPRESSION: 1. Benign prostatic hypertrophy. 2. Hypertension. 3. Dyslipidemia. 4. Osteoarthritis. 5. Fanconi syndrome. 6. Lumbar radiculopathy, status post decompression. PLAN: 1. Continue current medication, but increase Flomax to b.i.d. 2. Heart healthy diet. 3. Spinal precautions. 4. DVT prophylaxis with PlexiPulses. 5. Decubitus precautions. 6. Stress ulcer prophylaxis. 7. Continue therapy. 8. Routine laboratory values. 9. Follow up with Neurosurgery on Wednesday. 10. Monitor urine output. Job ID: [id number]
[2020-03-12] MEDS: Tamsulosin HCl 0.4 MG CAP PO SCH (20:49)
[2020-03-12] MEDS: tiZANidine HCl 4 MG TAB PO PRN (20:49)
[2020-03-12] MEDS: Amlodipine 5 MG TAB PO SCH (20:50)
[2020-03-13] MEDS: Fish Oil 1,000 MG CAP PO SCH (07:53)
[2020-03-13] MEDS: Ascorbic Acid 500 mg Chewable Tablet PO SCH (07:53)
[2020-03-13] MEDS: Sucralfate 1 GM TAB PO SCH ×2 (07:53→17:20)
[2020-03-13] MEDS: Gabapentin 300 MG CAP PO SCH ×3 (07:53→20:48)
[2020-03-13] MEDS: Tamsulosin HCl 0.4 MG CAP PO SCH ×2 (07:53→20:48)
[2020-03-13] MEDS: Vit A,C & E/Lutein/Minerals Tablet PO SCH (07:54)
[2020-03-13] MEDS: Stress 600 With Zinc 1 TAB PO SCH (07:54)
[2020-03-13] MEDS: Lisinopril 20 MG TAB PO SCH (07:54)
--- NOTE | 2020-03-13 13:36 | PRG ---
DATE OF SERVICE: 03/13/2020 SUBJECTIVE: Mr. Lauren is up in his chair. He states that he had a good day today with therapy. Tolerating the twice a day tamsulosin. Denies any questions or concerns. He states that his is wondering whether he will need a power lift at home and I advised him that I will have to talk with Therapy and see, because if he falls, I do not want his lifting him up with the fracture without any medical evaluation. OBJECTIVE: VITAL SIGNS: He is afebrile. Heart rate 78, respirations 18, oxygen saturation 95% on room air, blood pressure 106/53. CARDIOVASCULAR: S1, S2 plus. RESPIRATORY: Normal vesicular breath sounds. ABDOMEN: Soft, nontender. Bowel sounds heard in all quadrants. EXTREMITIES: Without cyanosis or clubbing. IMPRESSION: 1. Lumbar radiculopathy, status post decompression with persistent right-sided weakness. 2. Hypertension. 3. Dyslipidemia. 4. Benign prostatic hypertrophy. 5. Osteoarthritis. 6. Fanconi syndrome. 7. Depression. PLAN: 1. Continue current medications. 2. Nutritional support with heart-healthy diet. 3. Spinal precautions. 4. DVT prophylaxis with PlexiPulses. 5. Decubitus precautions. 6. Stress ulcer prophylaxis. 7. Routine laboratory values. 8. Continue therapy. Job ID: [id number]
[2020-03-13] MEDS: Amlodipine 5 MG TAB PO SCH (20:48)
[2020-03-13] MEDS: Acetaminophen/Codeine 30-300mg Tablet PO PRN (20:50)
[2020-03-13] MEDS: tiZANidine HCl 4 MG TAB PO PRN (20:51)
[2020-03-14] MEDS: Sucralfate 1 GM TAB PO SCH ×2 (07:46→16:14)
[2020-03-14] MEDS: Lisinopril 20 MG TAB PO SCH (07:47)
[2020-03-14] MEDS: Gabapentin 300 MG CAP PO SCH ×3 (07:47→20:16)
[2020-03-14] MEDS: Tamsulosin HCl 0.4 MG CAP PO SCH ×2 (07:47→20:16)
[2020-03-14] MEDS: Ascorbic Acid 500 mg Chewable Tablet PO SCH (07:47)
[2020-03-14] MEDS: Fish Oil 1,000 MG CAP PO SCH (07:47)
[2020-03-14] MEDS: Stress 600 With Zinc 1 TAB PO SCH (07:47)
[2020-03-14] MEDS: Vit A,C & E/Lutein/Minerals Tablet PO SCH (07:49)
--- NOTE | 2020-03-14 13:00 | PRG ---
DATE OF SERVICE: 03/14/2020 SUBJECTIVE: Mr. Lauren is doing well up in his chair and just finished lunch. He apparently stood a lot longer on the standing frame. His apparently spoke with Dr. Townsend and he apparently stated that there was a brace that is available that he can use which will help him walk and I advised him to make sure he discuss that further with the neurosurgeon during his visit tomorrow. OBJECTIVE: VITAL SIGNS: He is afebrile, heart rate 71, respirations 18, oxygen saturation 99% on room air, blood pressure 129/60. CARDIOVASCULAR: S1 and S2 plus. RESPIRATORY: Normal vesicular breath sounds. ABDOMEN: Soft and nontender. Bowel sounds heard in all quadrants. EXTREMITIES: Without cyanosis or clubbing. CENTRAL NERVOUS SYSTEM: Persistent right leg weakness. IMPRESSION: 1. Lumbar radiculopathy, status post decompression with persistent right leg weakness. 2. Hypertension. 3. Peripheral neuropathy. 4. Depression. 5. Benign prostatic hypertrophy. 6. Osteoarthritis. 7. Fanconi syndrome. PLAN: 1. Continue current medications. 2. Heart healthy diet. 3. Monitor blood pressure and adjust medications. 4. Neurosurgical precautions. 5. Physical therapy. 6. Routine laboratory values. 7. DVT prophylaxis with PlexiPulses. 8. Decubitus precautions. 9. Stress ulcer prophylaxis. 10. Routine laboratory values. Job ID: [id number]
[2020-03-14] MEDS: Acetaminophen/Codeine 30-300mg Tablet PO PRN ×2 (14:03→22:30)
[2020-03-14] MEDS: Amlodipine 5 MG TAB PO SCH (20:16)
[2020-03-14] MEDS: tiZANidine HCl 4 MG TAB PO PRN (22:33)
[2020-03-15] MEDS: Ascorbic Acid 500 mg Chewable Tablet PO SCH (08:47)
[2020-03-15] MEDS: Stress 600 With Zinc 1 TAB PO SCH (08:47)
[2020-03-15] MEDS: Fish Oil 1,000 MG CAP PO SCH (08:47)
[2020-03-15] MEDS: Tamsulosin HCl 0.4 MG CAP PO SCH ×2 (08:48→20:12)
[2020-03-15] MEDS: Lisinopril 20 MG TAB PO SCH (08:48)
[2020-03-15] MEDS: Vit A,C & E/Lutein/Minerals Tablet PO SCH (08:48)
[2020-03-15] MEDS: Sucralfate 1 GM TAB PO SCH ×2 (08:48→16:31)
[2020-03-15] MEDS: Gabapentin 300 MG CAP PO SCH ×3 (08:48→20:12)
--- NOTE | 2020-03-15 10:46 | PRG ---
DATE OF SERVICE: 03/15/2020 SUBJECTIVE: Mr. Lauren is up in his chair. He states that the twice a day Flomax is really helping. He is scheduled to see his neurosurgeon this afternoon. He apparently stood for about 12 minutes on a standing drain. He is happy with his progress. OBJECTIVE: VITAL SIGNS: He is afebrile. Heart rate 70, respirations 16, oxygen saturation 100% on room air, blood pressure 123/59. CARDIOVASCULAR: S1 and S2 plus. RESPIRATORY: Normal vesicular breath sounds. ABDOMEN: Soft, nontender. Bowel sounds heard in all quadrants. EXTREMITIES: Without cyanosis or clubbing. CENTRAL NERVOUS SYSTEM: Persistent right leg weakness, otherwise nonfocal. IMPRESSION: 1. Lumbar radiculopathy, status post decompression with persistent right-sided weakness. 2. Hypertension. 3. Dyslipidemia. 4. Osteoarthritis. 5. BPH. 6. Fanconi syndrome. 7. Depression and anxiety. PLAN: 1. Continue current medications. 2. Nutritional support with heart healthy diet. 3. Await opinion by neurosurgeon. 4. Continue spinal precautions. 5. DVT prophylaxis with PlexiPulses. 6. Decubitus precaution. 7. Stress ulcer prophylaxis. 8. Routine laboratory values. 9. Continue therapy. Job ID: [id number]
[2020-03-15] MEDS: traMADol HCl 50 MG TAB PO PRN (16:30)
[2020-03-15] MEDS: Acetaminophen/Codeine 30-300mg Tablet PO PRN (20:11)
[2020-03-15] MEDS: tiZANidine HCl 4 MG TAB PO PRN (20:12)
[2020-03-15] MEDS: Amlodipine 5 MG TAB PO SCH (20:12)
[2020-03-16] MEDS: Gabapentin 300 MG CAP PO SCH ×3 (08:29→20:13)
[2020-03-16] MEDS: Sucralfate 1 GM TAB PO SCH ×2 (08:29→17:36)
[2020-03-16] MEDS: Stress 600 With Zinc 1 TAB PO SCH (08:29)
[2020-03-16] MEDS: Tamsulosin HCl 0.4 MG CAP PO SCH ×2 (08:29→20:13)
[2020-03-16] MEDS: Ascorbic Acid 500 mg Chewable Tablet PO SCH (08:29)
[2020-03-16] MEDS: Lisinopril 20 MG TAB PO SCH (08:30)
[2020-03-16] MEDS: Vit A,C & E/Lutein/Minerals Tablet PO SCH (08:30)
[2020-03-16] MEDS: Fish Oil 1,000 MG CAP PO SCH (08:30)
--- NOTE | 2020-03-16 15:39 | PRG ---
DATE OF SERVICE: 03/16/2020 SUBJECTIVE: Mr. Lauren is up in bed. Denies any complaints at his lunch. He apparently is a little disappointment that he thought he had an appointment with his neurosurgeon yesterday, but it was with his PA, so the PA apparently has noted down all his concerns and we will have Dr. Townsend follow him on Wednesday. OBJECTIVE: VITAL SIGNS: The patient is afebrile. Heart rate 81, respirations 24, oxygen saturation 97% on room air, blood pressure 117/59. CARDIOVASCULAR: S1-S2 plus. RESPIRATORY: Normal vesicular breath sounds. ABDOMEN: Soft, nontender. Bowel sounds heard in all quadrants. EXTREMITIES: Without cyanosis, clubbing. CENTRAL NERVOUS SYSTEM: Persistent right leg weakness with gradual improvement. IMPRESSION: 1. Hypertension. 2. Osteoarthritis. 3. Dyslipidemia. 4. Fanconi syndrome. 5. History of transient ischemic attack and cerebrovascular accident. 6. Lumbar radiculopathy, status post decompressive with persistent weakness. 7. Benign prostatic hypertrophy. 8. Depression and anxiety. PLAN: 1. The patient wants to be on a regular diet. He is aware of the risks. We will switch him over to a regular diet. 2. Continue current medications. 3. Monitor blood pressure and adjust medications. 4. Continue therapy. 5. Spinal precautions. 6. Routine laboratory values. 7. DVT prophylaxis with PlexiPulses. 8. Decubitus precautions. 9. Stress ulcer prophylaxis. Job ID: [id number]
[2020-03-16] MEDS: Acetaminophen/Codeine 30-300mg Tablet PO PRN (20:13)
[2020-03-16] MEDS: Amlodipine 5 MG TAB PO SCH (20:13)
[2020-03-16] MEDS: tiZANidine HCl 4 MG TAB PO PRN (20:13)
[2020-03-17] MEDS: Gabapentin 300 MG CAP PO SCH ×3 (08:06→20:58)
[2020-03-17] MEDS: Fish Oil 1,000 MG CAP PO SCH (08:06)
[2020-03-17] MEDS: Acetaminophen/Codeine 30-300mg Tablet PO PRN ×3 (08:06→22:11)
[2020-03-17] MEDS: Stress 600 With Zinc 1 TAB PO SCH (08:06)
[2020-03-17] MEDS: Ascorbic Acid 500 mg Chewable Tablet PO SCH (08:06)
[2020-03-17] MEDS: Vit A,C & E/Lutein/Minerals Tablet PO SCH (08:06)
[2020-03-17] MEDS: Tamsulosin HCl 0.4 MG CAP PO SCH ×2 (08:07→20:58)
[2020-03-17] MEDS: Sucralfate 1 GM TAB PO SCH ×2 (08:07→16:16)
[2020-03-17] MEDS: Lisinopril 20 MG TAB PO SCH (08:07)
--- NOTE | 2020-03-17 15:11 | PRG ---
DATE OF SERVICE: 03/17/2020 SUBJECTIVE: Mr. Lauren is sleeping, but arousable. He denies any questions or concerns. He is enjoying his Wednesday. No family at bedside. Discussed with nursing. OBJECTIVE: VITAL SIGNS: He is afebrile, heart rate 87, respirations 16, oxygen saturation 97% on room air, blood pressure 139/68. CARDIOVASCULAR: S1 and S2 plus. RESPIRATORY: Normal vesicular breath sounds. ABDOMEN: Soft, nontender. Bowel sounds heard in all quadrants. EXTREMITIES: Without cyanosis or clubbing. CENTRAL NERVOUS SYSTEM: Persistent right-sided weakness and pain in the right leg. IMPRESSION: 1. Lumbar radiculopathy, status post decompression with persistent right leg weakness and pain. 2. Hypertension. 3. Dyslipidemia. 4. Osteoarthritis. 5. Fanconi syndrome. 6. Benign prostatic hypertrophy. 7. Depression and anxiety. PLAN: 1. Continue current medications. 2. Heart healthy diet. 3. DVT prophylaxis with PlexiPulses. 4. Decubitus precautions. 5. Stress ulcer prophylaxis. 6. Spinal precautions. 7. Physical therapy. 8. Routine laboratory values. Job ID: [id number]
[2020-03-17] MEDS: Amlodipine 5 MG TAB PO SCH (20:58)
[2020-03-17] MEDS: tiZANidine HCl 4 MG TAB PO PRN (22:11)
[2020-03-18] MEDS: Ascorbic Acid 500 mg Chewable Tablet PO SCH (08:30)
[2020-03-18] MEDS: Stress 600 With Zinc 1 TAB PO SCH (08:31)
[2020-03-18] MEDS: Sucralfate 1 GM TAB PO SCH ×2 (08:32→17:00)
[2020-03-18] MEDS: Vit A,C & E/Lutein/Minerals Tablet PO SCH (08:32)
[2020-03-18] MEDS: Fish Oil 1,000 MG CAP PO SCH (08:32)
[2020-03-18] MEDS: Tamsulosin HCl 0.4 MG CAP PO SCH ×2 (08:32→20:00)
[2020-03-18] MEDS: Lisinopril 20 MG TAB PO SCH (08:33)
[2020-03-18] MEDS: Gabapentin 300 MG CAP PO SCH ×3 (08:33→20:00)
--- NOTE | 2020-03-18 13:30 | PRG ---
DATE OF SERVICE: 03/18/2020 SUBJECTIVE: Mr. Lauren is resting in bed. He denies any complaints. He just finished his lunch. He apparently stood for 10 minutes in the standing frame. He is waiting to hear back from Dr. Townsend about his concerns over the meeting he had with his PA last Wednesday. OBJECTIVE: VITAL SIGNS: The patient is afebrile, heart rate 69, respirations 18, oxygen saturation 99% on room air, and blood pressure 121/58. CARDIOVASCULAR: S1 and S2 plus. RESPIRATORY: Normal vesicular breath sounds. ABDOMEN: Soft and nontender. Bowel sounds heard in all quadrants. EXTREMITIES: Without cyanosis or clubbing. CENTRAL NERVOUS SYSTEM: Persistent right leg weakness and pain. IMPRESSION: 1. Lumbar radiculopathy, status post decompression with persistent right-sided weakness and pain. 2. Hypertension. 3. Osteoarthritis. 4. Benign prostatic hyperplasia. 5. Depression and anxiety. 6. Deconditioning. PLAN: 1. Continue current medications. 2. Heart healthy diet. 3. Nutritional support. 4. DVT prophylaxis. 5. Decubitus precautions. 6. Stress ulcer prophylaxis. 7. Continue therapy. 8. Routine laboratory values. Job ID: [id number]
[2020-03-18] MEDS: Acetaminophen/Codeine 30-300mg Tablet PO PRN (15:07)
[2020-03-18] MEDS: traMADol HCl 50 MG TAB PO PRN (19:59)
[2020-03-18] MEDS: tiZANidine HCl 4 MG TAB PO PRN (19:59)
[2020-03-18] MEDS: Amlodipine 5 MG TAB PO SCH (20:00)
[2020-03-19] MEDS: Vit A,C & E/Lutein/Minerals Tablet PO SCH (08:39)
[2020-03-19] MEDS: Ascorbic Acid 500 mg Chewable Tablet PO SCH (08:39)
[2020-03-19] MEDS: Gabapentin 300 MG CAP PO SCH ×3 (08:39→21:06)
[2020-03-19] MEDS: Tamsulosin HCl 0.4 MG CAP PO SCH ×2 (08:39→21:06)
[2020-03-19] MEDS: Sucralfate 1 GM TAB PO SCH ×2 (08:39→17:12)
[2020-03-19] MEDS: Fish Oil 1,000 MG CAP PO SCH (08:39)
[2020-03-19] MEDS: Stress 600 With Zinc 1 TAB PO SCH (08:39)
[2020-03-19] MEDS: Lisinopril 20 MG TAB PO SCH (08:40)
--- NOTE | 2020-03-19 14:03 | PRG ---
DATE OF SERVICE: 03/19/2020 SUBJECTIVE: Mr. Lauren is resting in bed. He just had his lunch. He denies any questions or concerns. He apparently stood up for about 13 minutes on a standing frame. He states that his still does not heard anything from Dr. Townsend. OBJECTIVE: VITAL SIGNS: He is afebrile. Heart rate 75, respirations 18, oxygen saturation 98% on room air, blood pressure 109/58. CARDIOVASCULAR: S1 and S2 plus. RESPIRATORY: Normal vesicular breath sounds. ABDOMEN: Soft, nontender. Bowel sounds heard in all quadrants. EXTREMITIES: Without cyanosis or clubbing. Peripheral pulses are palpable. CENTRAL NERVOUS SYSTEM: Generalized weakness especially right-sided. IMPRESSION: 1. Lumbar radiculopathy, status post decompression and persistent right-sided weakness. 2. Hypertension. 3. Dyslipidemia. 4. Osteoarthritis. 5. BPH. 6. Depression and anxiety. 7. Deconditioning. PLAN: 1. Continue current medications. 2. Heart healthy diet. 3. Monitor blood pressure and adjust medications as needed. 4. He states that for some reason he is back on a heart healthy diet and I will check on it, I could change it to regular. 5. DVT prophylaxis for PlexiPulses. 6. Decubitus precautions. 7. Stress ulcer prophylaxis. 8. Routine laboratory values. Job ID: [id number]
[2020-03-19] MEDS: Acetaminophen/Codeine 30-300mg Tablet PO PRN (18:32)
[2020-03-19] MEDS: Amlodipine 5 MG TAB PO SCH (21:05)
[2020-03-19] MEDS: traMADol HCl 50 MG TAB PO PRN (21:06)
[2020-03-19] MEDS: tiZANidine HCl 4 MG TAB PO PRN (21:06)
[2020-03-20] MEDS: Acetaminophen/Codeine 30-300mg Tablet PO PRN ×2 (09:18→19:59)
[2020-03-20] MEDS: Fish Oil 1,000 MG CAP PO SCH (09:26)
[2020-03-20] MEDS: Ascorbic Acid 500 mg Chewable Tablet PO SCH (09:26)
[2020-03-20] MEDS: Stress 600 With Zinc 1 TAB PO SCH (09:27)
[2020-03-20] MEDS: Vit A,C & E/Lutein/Minerals Tablet PO SCH (09:27)
[2020-03-20] MEDS: Sucralfate 1 GM TAB PO SCH ×2 (09:27→17:50)
[2020-03-20] MEDS: Tamsulosin HCl 0.4 MG CAP PO SCH ×2 (09:27→20:00)
[2020-03-20] MEDS: Gabapentin 300 MG CAP PO SCH ×3 (09:27→20:00)
[2020-03-20] MEDS: Lisinopril 20 MG TAB PO SCH (09:29)
--- NOTE | 2020-03-20 18:02 | PRG ---
DATE OF SERVICE: 03/20/2020 SUBJECTIVE: Mr. Lauren is up in his chair and denies any complaints. He states that his urination is much improved. He apparently is slowly getting stronger with therapy, but he continues to have right leg pain and weakness. He denies any questions or concerns. No family at bedside. OBJECTIVE: VITAL SIGNS: He is afebrile. Heart rate is 89, respirations are 18, oxygen saturation 98% on room air, blood pressure 105/55. CARDIOVASCULAR SYSTEM: S1-S2 plus. RESPIRATORY SYSTEM: Normal vesicular breath sounds. ABDOMEN: Soft and nontender. Bowel sounds heard in all quadrants. EXTREMITIES: Without cyanosis or clubbing. CENTRAL NERVOUS SYSTEM: Persistent right leg weakness and pain. IMPRESSION: 1. Lumbar radiculopathy, status post decompression and persistent right leg weakness. 2. Hypertension. 3. Dyslipidemia. 4. Osteoarthritis. 5. Fanconi syndrome. 6. BPH. 7. Depression. 8. Deconditioning. PLAN: 1. Continue current medications. 2. Nutritional support. 3. DVT prophylaxis with PlexiPulses. 4. Decubitus precautions. 5. Stress ulcer prophylaxis. 6. Routine laboratory values. 7. Continue therapy. Job ID: [id number]
[2020-03-20] MEDS: Amlodipine 5 MG TAB PO SCH (20:00)
[2020-03-20] MEDS: tiZANidine HCl 4 MG TAB PO PRN (20:00)
[2020-03-21] MEDS: Fish Oil 1,000 MG CAP PO SCH (07:36)
[2020-03-21] MEDS: Gabapentin 300 MG CAP PO SCH ×3 (07:36→20:52)
[2020-03-21] MEDS: Vit A,C & E/Lutein/Minerals Tablet PO SCH (07:36)
[2020-03-21] MEDS: Ascorbic Acid 500 mg Chewable Tablet PO SCH (07:36)
[2020-03-21] MEDS: Tamsulosin HCl 0.4 MG CAP PO SCH ×2 (07:37→20:52)
[2020-03-21] MEDS: Sucralfate 1 GM TAB PO SCH ×2 (07:38→16:08)
[2020-03-21] MEDS: Stress 600 With Zinc 1 TAB PO SCH (07:39)
[2020-03-21] MEDS: Lisinopril 20 MG TAB PO SCH (07:44)
--- NOTE | 2020-03-21 13:56 | PRG ---
DATE OF SERVICE: 03/21/2020 SUBJECTIVE: Mr. Lauren is doing well. He apparently did some stationary bicycling at the gym. He is happy with his progress. He denies any questions or concerns. No family at bedside. OBJECTIVE: VITAL SIGNS: He is afebrile, heart rate 86, respirations 18, oxygen saturation 93% on room air, and blood pressure is 116/61. CARDIOVASCULAR: S1 and S2 plus. RESPIRATORY: Normal vesicular breath sounds. ABDOMEN: Soft and nontender. Bowel sounds heard in all quadrants. EXTREMITIES: Without cyanosis or clubbing. CENTRAL NERVOUS SYSTEM: Persistent right leg weakness and pain. IMPRESSION: 1. Hypertension. 2. Dyslipidemia. 3. Osteoarthritis. 4. Fanconi syndrome. 5. Benign prostatic hypertrophy. 6. Depression and anxiety. 7. Persistent right leg weakness due to lumbar radiculopathy, status post decompression. PLAN: 1. Continue current medications. 2. Heart healthy diet. 3. DVT prophylaxis with PlexiPulses. 4. Decubitus precautions. 5. Stress ulcer prophylaxis. 6. Routine laboratory values. 7. Therapy. 8. Discussed with the patient in detail. All questions answered. Job ID: [id number]
[2020-03-21] MEDS: traMADol HCl 50 MG TAB PO PRN (17:49)
[2020-03-21] MEDS: Amlodipine 5 MG TAB PO SCH (20:52)
[2020-03-21] MEDS: Acetaminophen/Codeine 30-300mg Tablet PO PRN (22:15)
[2020-03-21] MEDS: tiZANidine HCl 4 MG TAB PO PRN (22:16)
[2020-03-22] MEDS: Sucralfate 1 GM TAB PO SCH ×2 (08:14→16:16)
[2020-03-22] MEDS: Fish Oil 1,000 MG CAP PO SCH (08:14)
[2020-03-22] MEDS: Ascorbic Acid 500 mg Chewable Tablet PO SCH (08:14)
[2020-03-22] MEDS: Stress 600 With Zinc 1 TAB PO SCH (08:14)
[2020-03-22] MEDS: Gabapentin 300 MG CAP PO SCH ×3 (08:14→20:43)
[2020-03-22] MEDS: Lisinopril 20 MG TAB PO SCH (08:14)
[2020-03-22] MEDS: Tamsulosin HCl 0.4 MG CAP PO SCH ×2 (08:14→20:43)
[2020-03-22] MEDS: Vit A,C & E/Lutein/Minerals Tablet PO SCH (08:14)
--- NOTE | 2020-03-22 14:30 | PRG ---
DATE OF SERVICE: 03/22/2020 SUBJECTIVE: Mr. Lauren is up in bed. He just finished his lunch. He apparently stood with walker 5 times up and down this morning and he is very excited. No family at bedside. Discussed with nursing. OBJECTIVE: VITAL SIGNS: He is afebrile, heart rate 82, respirations 18, oxygen saturation 96% on room air, and blood pressure 111/55. CARDIOVASCULAR SYSTEM: S1 and S2 plus. RESPIRATORY SYSTEM: Normal vesicular breath sounds. ABDOMEN: Soft, nontender. Bowel sounds heard in all quadrants. EXTREMITIES: Without cyanosis or clubbing. CENTRAL NERVOUS SYSTEM: Right leg weakness and pain. IMPRESSION: 1. Lumbar radiculopathy, status post decompression, now with persistent right leg weakness and pain. 2. Hypertension. 3. Dyslipidemia. 4. Osteoarthritis. 5. Benign prostatic hypertrophy. 6. Depression and anxiety. 7. Fanconi syndrome. PLAN: 1. Continue current medications. 2. Heart healthy diet, but the patient wants to be on a regular diet and aware of the risks. 3. Monitor blood pressure and adjust medications as needed. 4. DVT prophylaxis with PlexiPulses. 5. Decubitus precautions. 6. Stress ulcer prophylaxis. 7. Routine laboratory values. 8. Continue therapy. 9. Discussed with the patient and nursing in detail. All questions answered. Job ID: [id number]
[2020-03-22] MEDS: Amlodipine 5 MG TAB PO SCH (20:43)
[2020-03-22] MEDS: tiZANidine HCl 4 MG TAB PO PRN (20:44)
[2020-03-22] MEDS: Acetaminophen/Codeine 30-300mg Tablet PO PRN (20:44)
[2020-03-23] MEDS: Ascorbic Acid 500 mg Chewable Tablet PO SCH (08:16)
[2020-03-23] MEDS: Vit A,C & E/Lutein/Minerals Tablet PO SCH (08:16)
[2020-03-23] MEDS: Lisinopril 20 MG TAB PO SCH (08:17)
[2020-03-23] MEDS: Gabapentin 300 MG CAP PO SCH ×3 (08:17→20:49)
[2020-03-23] MEDS: Sucralfate 1 GM TAB PO SCH ×2 (08:17→16:20)
[2020-03-23] MEDS: Fish Oil 1,000 MG CAP PO SCH (08:17)
[2020-03-23] MEDS: Stress 600 With Zinc 1 TAB PO SCH (08:17)
[2020-03-23] MEDS: Tamsulosin HCl 0.4 MG CAP PO SCH ×2 (08:17→20:49)
--- NOTE | 2020-03-23 15:50 | PRG ---
DATE OF SERVICE: 03/23/2020 SUBJECTIVE: Mr. Lauren is sleeping, but arousable. He just dozed off after lunch. He denies any questions or concerns. Discussed with Nursing. OBJECTIVE: VITAL SIGNS: He is afebrile, heart rate 69, respirations 22, oxygen saturation 99% on room air, blood pressure is 112/52. CARDIOVASCULAR: S1 and S2 plus. RESPIRATORY: Normal vesicular breath sounds. ABDOMEN: Soft and nontender. Bowel sounds heard in all quadrants. EXTREMITIES: Without cyanosis or clubbing. CENTRAL NERVOUS SYSTEM: Persistent right leg weakness and pain. IMPRESSION: 1. Hypertension. 2. Lumbar radiculopathy, status post decompression with persistent right leg weakness. 3. Benign prostatic hypertrophy. 4. Improving depression. 5. Fanconi syndrome. 6. Osteoarthritis. PLAN: 1. Continue current medications. 2. Heart healthy diet. 3. DVT prophylaxis with PlexiPulses. 4. Decubitus precautions. 5. Stress ulcer prophylaxis. 6. Physical therapy. 7. Routine laboratory values. Job ID: [id number]
[2020-03-23] MEDS: Amlodipine 5 MG TAB PO SCH (20:49)
[2020-03-23] MEDS: Acetaminophen/Codeine 30-300mg Tablet PO PRN (20:49)
[2020-03-23] MEDS: tiZANidine HCl 4 MG TAB PO PRN (20:50)
[2020-03-24] MEDS: Vit A,C & E/Lutein/Minerals Tablet PO SCH (07:59)
[2020-03-24] MEDS: Tamsulosin HCl 0.4 MG CAP PO SCH ×2 (07:59→20:44)
[2020-03-24] MEDS: Stress 600 With Zinc 1 TAB PO SCH (07:59)
[2020-03-24] MEDS: Fish Oil 1,000 MG CAP PO SCH (07:59)
[2020-03-24] MEDS: Gabapentin 300 MG CAP PO SCH ×3 (07:59→20:44)
[2020-03-24] MEDS: Sucralfate 1 GM TAB PO SCH ×2 (07:59→16:10)
[2020-03-24] MEDS: Acetaminophen/Codeine 30-300mg Tablet PO PRN ×2 (08:16→20:45)
[2020-03-24] MEDS: Ascorbic Acid 500 mg Chewable Tablet PO SCH (08:17)
[2020-03-24] MEDS: Lisinopril 20 MG TAB PO SCH (08:17)
[2020-03-24] MEDS: traMADol HCl 50 MG TAB PO PRN (13:00)
--- NOTE | 2020-03-24 14:25 | PRG ---
DATE OF SERVICE: 03/24/2020 SUBJECTIVE: Mr. Lauren is noticing slightly more pain to his right leg. He is rating it as 3/10. He is getting ready to sit up for a little while. His urination is much improved. He denies any other questions or concerns. OBJECTIVE: VITAL SIGNS: He is afebrile. Heart rate is 73, respirations 18, oxygen saturation 96% on room air, blood pressure 123/74. CARDIOVASCULAR: S1 and S2 plus. RESPIRATORY: Normal vesicular breath sounds. ABDOMEN: Soft, nontender. Bowel sounds heard in all quadrants. EXTREMITIES: Without cyanosis or clubbing. CENTRAL NERVOUS SYSTEM: Persistent right leg pain and weakness. IMPRESSION: 1. Lumbar radiculopathy, status post decompression with persistent right leg pain and weakness. 2. Hypertension. 3. BPH. 4. Depression. 5. Fanconi syndrome. 6. Osteoarthritis. PLAN: 1. Continue current medications. 2. Heart healthy diet. 3. DVT prophylaxis with PlexiPulses. 4. Decubitus precautions. 5. Stress ulcer prophylaxis. 6. Routine laboratory values. 7. Continue therapy. Job ID: [id number]
[2020-03-24] MEDS: Amlodipine 5 MG TAB PO SCH (20:44)
[2020-03-24] MEDS: tiZANidine HCl 4 MG TAB PO PRN (20:44)
[2020-03-25] MEDS: Stress 600 With Zinc 1 TAB PO SCH (08:47)
[2020-03-25] MEDS: Vit A,C & E/Lutein/Minerals Tablet PO SCH (08:47)
[2020-03-25] MEDS: Ascorbic Acid 500 mg Chewable Tablet PO SCH (08:47)
[2020-03-25] MEDS: Fish Oil 1,000 MG CAP PO SCH (08:47)
[2020-03-25] MEDS: Sucralfate 1 GM TAB PO SCH ×2 (08:47→16:32)
[2020-03-25] MEDS: Gabapentin 300 MG CAP PO SCH ×3 (08:48→20:43)
[2020-03-25] MEDS: traMADol HCl 50 MG TAB PO PRN ×3 (08:48→20:43)
[2020-03-25] MEDS: Tamsulosin HCl 0.4 MG CAP PO SCH ×2 (08:48→20:43)
[2020-03-25] MEDS: Lisinopril 20 MG TAB PO SCH (08:48)
--- NOTE | 2020-03-25 13:12 | PRG ---
DATE OF SERVICE: 03/25/2020 SUBJECTIVE: Mr. Lauren is up in his chair. He denies any complaints other than mild pain to his right leg. He is participating with therapy. He is urinating well. No other concerns or questions discussed with nursing. OBJECTIVE: VITAL SIGNS: He is afebrile. Heart rate 76, respirations 18, oxygen saturation 97% on room air, blood pressure is 133/65. CARDIOVASCULAR: S1 and S2 plus. RESPIRATORY: Normal vesicular breath sounds. ABDOMEN: Soft, nontender. Bowel sounds heard in all quadrants. EXTREMITIES: Without cyanosis or clubbing. CENTRAL NERVOUS SYSTEM: Improving right leg weakness. IMPRESSION: 1. Lumbar radiculopathy, status post decompression with persistent right leg weakness. 2. Hypertension. 3. Fanconi syndrome. 4. Osteoporosis. 5. BPH. 6. Improving depression. PLAN: 1. Continue current medications. 2. Heart healthy diet. 3. Spinal precautions. 4. Physical therapy. 5. DVT prophylaxis. The patient is actually active enough that he does not need any. 6. Decubitus precaution. 7. Stress ulcer prophylaxis. 8. Therapy. 9. Routine laboratory values. Job ID: [id number]
[2020-03-25] MEDS: tiZANidine HCl 4 MG TAB PO PRN (20:43)
[2020-03-25] MEDS: Amlodipine 5 MG TAB PO SCH (20:43)
[2020-03-26] MEDS: Sucralfate 1 GM TAB PO SCH ×2 (07:51→17:16)
[2020-03-26] MEDS: Fish Oil 1,000 MG CAP PO SCH (07:51)
[2020-03-26] MEDS: Tamsulosin HCl 0.4 MG CAP PO SCH ×2 (08:00→20:44)
[2020-03-26] MEDS: Lisinopril 20 MG TAB PO SCH (08:00)
[2020-03-26] MEDS: Gabapentin 300 MG CAP PO SCH ×3 (08:01→20:43)
[2020-03-26] MEDS: Stress 600 With Zinc 1 TAB PO SCH (08:01)
[2020-03-26] MEDS: Ascorbic Acid 500 mg Chewable Tablet PO SCH (08:01)
[2020-03-26] MEDS: Vit A,C & E/Lutein/Minerals Tablet PO SCH (08:02)
--- NOTE | 2020-03-26 12:33 | PRG ---
DATE OF SERVICE: 03/26/2020 SUBJECTIVE: Mr. Lauren is up in his chair. He just finished his lunch. He denies any questions or concerns. Continues to have some weakness in the right leg and waiting on therapy evaluation this afternoon. His brought in his office visit notes from Neurosurgery and it really does not state much other than followup with them in 6 weeks. OBJECTIVE: VITAL SIGNS: The patient is afebrile. Heart rate 75, respirations 18, oxygen saturations 97% on room air, blood pressure 127/64. CARDIOVASCULAR: S1 and S2 plus. RESPIRATORY: Normal vesicular breath sounds. ABDOMEN: Soft and nontender. Bowel sounds heard in all quadrants. EXTREMITIES: Without cyanosis or clubbing. CENTRAL NERVOUS SYSTEM: Persistent right leg weakness, otherwise nonfocal. IMPRESSION: 1. Persistent right leg weakness due to lumbar radiculopathy. 2. Hypertension. 3. Fanconi syndrome. 4. Benign prostatic hypertrophy. 5. Depression. 6. Deconditioning. PLAN: 1. Check routine laboratory values tomorrow. 2. Nutritional support. 3. Monitor blood pressure. 4. Continue therapy. 5. Await case conference today. Job ID: [id number]
[2020-03-26] MEDS: Amlodipine 5 MG TAB PO SCH (20:43)
[2020-03-26] MEDS: traMADol HCl 50 MG TAB PO PRN (20:43)
[2020-03-26] MEDS: tiZANidine HCl 4 MG TAB PO PRN (20:44)
[2020-03-27 05:31] LABS: #Basophils 0.1 thou/uL (0.0-0.2); #Eosinphils 0.3 thou/uL (0.0-0.7); #Lymphocytes 1.9 thou/uL (1.20-3.40); #Monocytes 0.7 thou/uL (0.11-0.59); #Neutrophils 3.3 thou/uL (1.40-6.50); %Basophils 1.2 % (0.0-1.0); %Eosinophils 4.5 % (0.0-10.0); %Lymphocytes 30.8 % (21.0-51.0); %Monocytes 10.4 % (0.0-10.0); %Neutrophils 53.1 % (42.0-75.0); Hemoglobin 10.4 g/dL (14.0-18.0); Mean Corpuscular HGB CONC 31.6 g/dL (32.0-36.0); Mean Corpuscular Hemoglobin 31.3 pg (27.0-31.0); Mean Corpuscular Volume 99.1 fL (78.0-98.0); Mean Platelet Volume 6.9 fL (7.4-10.4); Platelet Count 206 thou/uL (130-400); Red Blood Cell (RBC) Count 3.31 mill/uL (4.70-6.10); White Blood Cell (WBC) Count 6.2 thou/uL (4.8-10.8)
[2020-03-27 05:48] LABS: Anion Gap 13 mmol/L (10-20); BUN (Urea Nitrogen) 19 mg/dL (8.4-25.7); Calc. Creatinine Clearance 108 mL/min (70-130); Calcium 8.2 mg/dL (7.8-10.44); Carbon Dioxide 23 mmol/L (23-31); Chloride 108 mmol/L (98-107); Estimated GFR-MDRD 86; Glucose 103 mg/dL (83-110); Potassium 3.9 mmol/L (3.5-5.1); Sodium 140 mmol/L (136-145)
[2020-03-27] MEDS: Ascorbic Acid 500 mg Chewable Tablet PO SCH (07:55)
[2020-03-27] MEDS: Fish Oil 1,000 MG CAP PO SCH (07:55)
[2020-03-27] MEDS: Gabapentin 300 MG CAP PO SCH ×3 (07:55→20:31)
[2020-03-27] MEDS: Vit A,C & E/Lutein/Minerals Tablet PO SCH (07:55)
[2020-03-27] MEDS: Stress 600 With Zinc 1 TAB PO SCH (07:55)
[2020-03-27] MEDS: Sucralfate 1 GM TAB PO SCH ×2 (07:55→16:42)
[2020-03-27] MEDS: Lisinopril 20 MG TAB PO SCH (07:56)
[2020-03-27] MEDS: Tamsulosin HCl 0.4 MG CAP PO SCH ×2 (07:56→20:31)
--- NOTE | 2020-03-27 12:52 | PRG ---
DATE OF SERVICE: 03/27/2020 SUBJECTIVE: Mr. Lauren is doing well. He apparently stood about 13-1/2 minutes on the standing frame. He is happy with his progress. OBJECTIVE: VITAL SIGNS: He is afebrile. Heart rate 78, respirations 18, oxygen saturation 96% on room air, blood pressure is 130/59. CARDIOVASCULAR: S1 and S2 plus. RESPIRATORY: Normal vesicular breath sounds. ABDOMEN: Soft and nontender. Bowel sounds heard in all quadrants. EXTREMITIES: Without cyanosis or clubbing. CENTRAL NERVOUS SYSTEM: Persistent right leg weakness and pain. IMPRESSION: 1. Lumbar radiculopathy, status post decompression, now with persistent right leg pain. 2. BPH. 3. Depression. 4. Fanconi syndrome. 5. Hypertension. 6. Osteoarthritis. 7. Deconditioning. PLAN: 1. Continue current medications. 2. Heart healthy diet. 3. Spinal precautions. 4. Physical therapy. 5. Routine laboratory values. His white count is 6.2, H and H are 10.4 and 32.8. Sodium 140, potassium 3.9, BUN and creatinine are 19 and 0.85. 6. Monitor for any other signs or symptoms of bleeding. 7. Discussed with the patient in detail. All questions answered. Job ID: [id number]
[2020-03-27] MEDS: traMADol HCl 50 MG TAB PO PRN ×2 (14:51→20:31)
[2020-03-27] MEDS: tiZANidine HCl 4 MG TAB PO PRN (20:31)
[2020-03-27] MEDS: Amlodipine 5 MG TAB PO SCH (20:32)
[2020-03-28] MEDS: Sucralfate 1 GM TAB PO SCH ×2 (08:25→17:16)
[2020-03-28] MEDS: Vit A,C & E/Lutein/Minerals Tablet PO SCH (08:25)
[2020-03-28] MEDS: Gabapentin 300 MG CAP PO SCH ×3 (08:25→20:38)
[2020-03-28] MEDS: Stress 600 With Zinc 1 TAB PO SCH (08:26)
[2020-03-28] MEDS: Tamsulosin HCl 0.4 MG CAP PO SCH ×2 (08:26→20:38)
[2020-03-28] MEDS: Ascorbic Acid 500 mg Chewable Tablet PO SCH (08:26)
[2020-03-28] MEDS: Lisinopril 20 MG TAB PO SCH (08:27)
[2020-03-28] MEDS: Fish Oil 1,000 MG CAP PO SCH (08:27)
--- NOTE | 2020-03-28 13:25 | PRG ---
DATE OF SERVICE: 03/28/2020 SUBJECTIVE: Mr. Lauren is up in his chair. He apparently stood a total of 21 minutes on the standing frame. He is happy with his progress. He feels like his right leg is finally getting stronger. Denies any questions or concerns. Discussed with nursing. OBJECTIVE: VITAL SIGNS: He is afebrile. Heart rate is 72, respirations 18, blood pressure is 144/66. CARDIOVASCULAR: S1 and S2 plus. RESPIRATORY: Normal vesicular breath sounds. ABDOMEN: Soft and nontender. Bowel sounds heard in all quadrants. EXTREMITIES: Without cyanosis or clubbing. CENTRAL NERVOUS SYSTEM: Improving right leg weakness. IMPRESSION: 1. Lumbar radiculopathy, status post decompression with persistent right leg weakness. 2. Hypertension. 3. Benign prostatic hypertrophy. 4. Depression. 5. Fanconi syndrome. 6. Osteoarthritis. 7. Improving deconditioning. PLAN: 1. Continue current medications. 2. Heart-healthy diet. 3. Spinal precautions. 4. Continue therapy. 5. Routine laboratory values. 6. Discussed with the patient in detail, and all questions answered. Job ID: [id number]
[2020-03-28] MEDS: Amlodipine 5 MG TAB PO SCH (20:36)
[2020-03-28] MEDS: traMADol HCl 50 MG TAB PO PRN (20:38)
[2020-03-28] MEDS: tiZANidine HCl 4 MG TAB PO PRN (20:38)
[2020-03-29] MEDS: Ascorbic Acid 500 mg Chewable Tablet PO SCH (08:14)
[2020-03-29] MEDS: Sucralfate 1 GM TAB PO SCH ×2 (08:14→17:06)
[2020-03-29] MEDS: Tamsulosin HCl 0.4 MG CAP PO SCH ×2 (08:15→20:50)
[2020-03-29] MEDS: Fish Oil 1,000 MG CAP PO SCH (08:15)
[2020-03-29] MEDS: Lisinopril 20 MG TAB PO SCH (08:15)
[2020-03-29] MEDS: Stress 600 With Zinc 1 TAB PO SCH (08:15)
[2020-03-29] MEDS: Gabapentin 300 MG CAP PO SCH ×3 (08:15→20:50)
[2020-03-29] MEDS: Vit A,C & E/Lutein/Minerals Tablet PO SCH (08:16)
--- NOTE | 2020-03-29 09:11 | PRG ---
DATE OF SERVICE: 03/29/2020 SUBJECTIVE: Mr. Lauren is up in bed. He states he had a good night's sleep. He is ready for therapy. No concerns or questions. OBJECTIVE: VITAL SIGNS: He is afebrile. Heart rate 67, respirations 16, oxygen saturation 97% on room air, and blood pressure 126/68. CARDIOVASCULAR SYSTEM: S1 and S2 plus. RESPIRATORY SYSTEM: Normal vesicular breath sounds. ABDOMEN: Soft and nontender. Bowel sounds heard in all quadrants. EXTREMITIES: Without cyanosis or clubbing. CENTRAL NERVOUS SYSTEM: Improving right leg weakness and pain. IMPRESSION: 1. Lumbar radiculopathy. 2. Hypertension. 3. BPH. 4. Depression. 5. Fanconi syndrome. 6. Osteoarthritis. 7. Improving deconditioning. PLAN: 1. Continue current medications. 2. Heart healthy diet. 3. Spinal precautions. 4. Physical therapy. 5. Routine laboratory values. 6. Discharge planning. Job ID: [id number]
[2020-03-29] MEDS: Amlodipine 5 MG TAB PO SCH (20:50)
[2020-03-29] MEDS: traMADol HCl 50 MG TAB PO PRN (20:51)
[2020-03-29] MEDS: tiZANidine HCl 4 MG TAB PO PRN (20:51)
[2020-03-30] MEDS: Stress 600 With Zinc 1 TAB PO SCH (08:18)
[2020-03-30] MEDS: Vit A,C & E/Lutein/Minerals Tablet PO SCH (08:18)
[2020-03-30] MEDS: Gabapentin 300 MG CAP PO SCH ×3 (08:19→20:42)
[2020-03-30] MEDS: Lisinopril 20 MG TAB PO SCH (08:19)
[2020-03-30] MEDS: Tamsulosin HCl 0.4 MG CAP PO SCH ×2 (08:19→20:42)
[2020-03-30] MEDS: Ascorbic Acid 500 mg Chewable Tablet PO SCH (08:19)
[2020-03-30] MEDS: Sucralfate 1 GM TAB PO SCH ×2 (08:19→16:44)
[2020-03-30] MEDS: Fish Oil 1,000 MG CAP PO SCH (08:19)
[2020-03-30] MEDS: Amlodipine 5 MG TAB PO SCH (20:42)
[2020-03-30] MEDS: tiZANidine HCl 4 MG TAB PO PRN (20:43)
[2020-03-30] MEDS: traMADol HCl 50 MG TAB PO PRN (20:43)
[2020-03-31] MEDS: Gabapentin 300 MG CAP PO SCH ×3 (07:47→20:35)
[2020-03-31] MEDS: Vit A,C & E/Lutein/Minerals Tablet PO SCH (07:47)
[2020-03-31] MEDS: Stress 600 With Zinc 1 TAB PO SCH (07:47)
[2020-03-31] MEDS: Ascorbic Acid 500 mg Chewable Tablet PO SCH (07:48)
[2020-03-31] MEDS: Sucralfate 1 GM TAB PO SCH ×2 (07:48→15:53)
[2020-03-31] MEDS: Lisinopril 20 MG TAB PO SCH (07:49)
[2020-03-31] MEDS: Fish Oil 1,000 MG CAP PO SCH (07:49)
[2020-03-31] MEDS: Tamsulosin HCl 0.4 MG CAP PO SCH ×2 (07:50→20:35)
--- NOTE | 2020-03-31 08:10 | PRG ---
DATE OF SERVICE: 03/30/2020 SUBJECTIVE: Patient feels well with no complaints other than the persistent weakness in his right leg. He is somewhat despondent as he feels that he will not be able to walk again, but is working on transfers. OBJECTIVE: VITAL SIGNS: Shows temperature is 98.5, pulse 83, respirations 20, O2 sats 94% on room air, and blood pressure is 139/63. LUNGS: Clear. CARDIAC: Shows regular rhythm. ABDOMEN: Soft and nontender. NEUROLOGIC: Shows persistent right leg weakness. ASSESSMENT: 1. Hypertension, controlled to goal. 2. Lumbar radiculopathy with improving but persistent symptoms of right leg weakness with minimal back pain from his laminectomy. 3. Benign prostatic hypertrophy, stable. 4. Depression, appears to be persistent. PLAN: 1. Continue PT, OT. 2. Attempt to lift patient's spirits. 3. Discuss motorized wheelchair with the patient. 4. Continue heart healthy diet. Job ID: [id number]
--- NOTE | 2020-03-31 18:38 | PRG ---
DATE OF SERVICE: 03/31/2020 SUBJECTIVE: The patient feels well. No complaints. States that he does feel that he is improving with his transfers and is more optimistic about being able to care for himself at home. OBJECTIVE: VITAL SIGNS: Show blood pressure is 136/61, temperature is 98, pulse 80, respiration 19, O2 sats 96% on room air. LUNGS: Clear. CARDIAC: Regular rhythm. NEUROLOGICAL: Shows persistent weakness in the right leg. SKIN/EXTREMITIES: Show decreasing back pain and healing laminectomy. ASSESSMENT: 1. Hypertension, controlled to goal. 2. Persistent right lumbar radiculopathy and leg weakness. 3. Improved depression. 4. Stable BPH. PLAN: 1. Continue PT/OT. 2. Continue pain relief. 3. Dr. Barnhart back tomorrow. Job ID: [id number]
[2020-03-31] MEDS: Amlodipine 5 MG TAB PO SCH (20:35)
[2020-03-31] MEDS: tiZANidine HCl 4 MG TAB PO PRN (20:36)
[2020-03-31] MEDS: traMADol HCl 50 MG TAB PO PRN (20:36)
[2020-04-01] MEDS: Vit A,C & E/Lutein/Minerals Tablet PO SCH (08:39)
[2020-04-01] MEDS: Fish Oil 1,000 MG CAP PO SCH (08:40)
[2020-04-01] MEDS: Lisinopril 20 MG TAB PO SCH (08:40)
[2020-04-01] MEDS: Ascorbic Acid 500 mg Chewable Tablet PO SCH (08:42)
[2020-04-01] MEDS: Sucralfate 1 GM TAB PO SCH ×2 (08:42→16:51)
[2020-04-01] MEDS: Stress 600 With Zinc 1 TAB PO SCH (08:42)
[2020-04-01] MEDS: Tamsulosin HCl 0.4 MG CAP PO SCH ×2 (08:42→21:13)
[2020-04-01] MEDS: Gabapentin 300 MG CAP PO SCH ×3 (08:42→21:13)
--- NOTE | 2020-04-01 13:23 | PRG ---
DATE OF SERVICE: 04/01/2020 SUBJECTIVE: Mr. Lauren is up in his chair. He apparently stood up at 25 minutes on the standing wilkinson. He is happy with his progress. He states his has been looking for some diapers as he is unable to get to the restroom in time and I advised him that I will be glad to fill up a form and not sure if deconditioning qualifies, but we can try. OBJECTIVE: VITAL SIGNS: The patient is afebrile, heart rate 81, respirations 20, oxygen saturation 96% on room air, and blood pressure 121/76. CARDIOVASCULAR SYSTEM: S1 and S2 plus. RESPIRATORY SYSTEM: Normal vesicular breath sounds. ABDOMEN: Soft and nontender. Bowel sounds heard in all quadrants. EXTREMITIES: Without cyanosis or clubbing. CENTRAL NERVOUS SYSTEM: Persistent right leg pain and weakness. IMPRESSION: 1. Lumbar radiculopathy, status post decompression with persistent right leg weakness and pain. 2. Benign prostatic hyperplasia. 3. Hypertension. 4. Depression. 5. Deconditioning. 6. Osteoarthritis. 7. Fanconi syndrome. PLAN: 1. Continue current medications. 2. Heart healthy diet. 3. DVT prophylaxis. The patient is at low risk. 4. Decubitus precautions. 5. Stress ulcer prophylaxis. 6. Physical therapy. 7. Routine laboratory values. Job ID: [id number]
[2020-04-01] MEDS: tiZANidine HCl 4 MG TAB PO PRN (21:13)
[2020-04-01] MEDS: Amlodipine 5 MG TAB PO SCH (21:13)
[2020-04-01] MEDS: traMADol HCl 50 MG TAB PO PRN (21:14)
[2020-04-02] MEDS: Stress 600 With Zinc 1 TAB PO SCH (08:22)
[2020-04-02] MEDS: Vit A,C & E/Lutein/Minerals Tablet PO SCH (08:22)
[2020-04-02] MEDS: Lisinopril 20 MG TAB PO SCH (08:23)
[2020-04-02] MEDS: Gabapentin 300 MG CAP PO SCH ×3 (08:24→20:14)
[2020-04-02] MEDS: Sucralfate 1 GM TAB PO SCH ×2 (08:25→16:44)
[2020-04-02] MEDS: Fish Oil 1,000 MG CAP PO SCH (08:25)
[2020-04-02] MEDS: Ascorbic Acid 500 mg Chewable Tablet PO SCH (08:25)
[2020-04-02] MEDS: Tamsulosin HCl 0.4 MG CAP PO SCH ×2 (08:25→20:14)
--- NOTE | 2020-04-02 13:11 | PRG ---
DATE OF SERVICE: 04/02/2020 SUBJECTIVE: Mr. Lauren is up in his chair. He just finished his lunch. He denies any questions or concerns. He apparently stood up with a walker for a minute or two. Awaiting weekly case conference from therapy for update. OBJECTIVE: VITAL SIGNS: He is afebrile, heart rate 68, respirations 18, oxygen saturation 98% on room air, and blood pressure 115/56. CARDIOVASCULAR SYSTEM: S1 and S2 plus. RESPIRATORY SYSTEM: Normal vesicular breath sounds. ABDOMEN: Soft and nontender. Bowel sounds heard in all quadrants. EXTREMITIES: Without cyanosis or clubbing. IMPRESSION: 1. Right leg persistent pain and weakness due to lumbar radiculopathy. 2. Hypertension. 3. Benign prostatic hyperplasia. 4. Depression, improving. 5. Deconditioning. PLAN: 1. Continue current medications. 2. Nutritional support with heart healthy diet. 3. Monitor blood pressure. 4. Physical therapy. 5. Routine laboratory values. Job ID: [id number]
[2020-04-02] MEDS: tiZANidine HCl 4 MG TAB PO PRN (20:14)
[2020-04-02] MEDS: traMADol HCl 50 MG TAB PO PRN (20:14)
[2020-04-02] MEDS: Amlodipine 5 MG TAB PO SCH (20:14)
[2020-04-03] MEDS: Tamsulosin HCl 0.4 MG CAP PO SCH ×2 (09:37→20:42)
[2020-04-03] MEDS: Vit A,C & E/Lutein/Minerals Tablet PO SCH (09:37)
[2020-04-03] MEDS: Lisinopril 20 MG TAB PO SCH (09:37)
[2020-04-03] MEDS: Ascorbic Acid 500 mg Chewable Tablet PO SCH (09:38)
[2020-04-03] MEDS: Fish Oil 1,000 MG CAP PO SCH (09:38)
[2020-04-03] MEDS: Sucralfate 1 GM TAB PO SCH ×2 (09:38→16:47)
[2020-04-03] MEDS: Gabapentin 300 MG CAP PO SCH ×3 (09:38→20:42)
[2020-04-03] MEDS: Stress 600 With Zinc 1 TAB PO SCH (09:39)
--- NOTE | 2020-04-03 13:16 | PRG ---
DATE OF SERVICE: 04/03/2020 SUBJECTIVE: Mr. Lauren is up in his chair. He apparently almost stood up without any help with the help of a walker today. apparently is not comfortable taking him home if he is unable to stand. I did advise him to think about alternatives if he is not going to get to the position where he is able to stand on his own with the help of a walker. The only option left is for him to consider [facility]. He is opposed to that, but he will think about it. OBJECTIVE: VITAL SIGNS: He is afebrile. Heart rate 84, respirations 18, oxygen saturation 99%, blood pressure 121/76. CARDIOVASCULAR SYSTEM: S1 and S2 plus. RESPIRATORY SYSTEM: Normal vesicular breath sounds. ABDOMEN: Soft and nontender. Bowel sounds heard in all quadrants. EXTREMITIES: Without cyanosis or clubbing. CENTRAL NERVOUS SYSTEM: Persistent right leg weakness. IMPRESSION: 1. Lumbar radiculopathy. 2. Hypertension. 3. BPH. 4. Depression. 5. Fanconi syndrome. 6. Osteoarthritis. PLAN: 1. Continue current medications. 2. Low-sodium diet. 3. Physical therapy. 4. Routine laboratory values. 5. Discharge planning discussed with the patient and all questions answered. Job ID: [id number]
[2020-04-03] MEDS: Amlodipine 5 MG TAB PO SCH (20:42)
[2020-04-03] MEDS: traMADol HCl 50 MG TAB PO PRN (20:42)
[2020-04-03] MEDS: tiZANidine HCl 4 MG TAB PO PRN (20:42)
[2020-04-04] MEDS: Vit A,C & E/Lutein/Minerals Tablet PO SCH (08:43)
[2020-04-04] MEDS: Sucralfate 1 GM TAB PO SCH ×2 (08:44→16:48)
[2020-04-04] MEDS: Ascorbic Acid 500 mg Chewable Tablet PO SCH (08:44)
[2020-04-04] MEDS: Lisinopril 20 MG TAB PO SCH (08:44)
[2020-04-04] MEDS: Gabapentin 300 MG CAP PO SCH ×3 (08:44→20:11)
[2020-04-04] MEDS: Fish Oil 1,000 MG CAP PO SCH (08:44)
[2020-04-04] MEDS: Tamsulosin HCl 0.4 MG CAP PO SCH ×2 (08:44→20:11)
[2020-04-04] MEDS: Stress 600 With Zinc 1 TAB PO SCH (08:44)
--- NOTE | 2020-04-04 13:23 | PRG ---
DATE OF SERVICE: 04/04/2020 SUBJECTIVE: Mr. Lauren is doing well. He apparently slipped off the sliding board and almost fell and did not hurt himself. He was witnessed. He has been monitored. He denies any pain. He states that he stood up with just his walker for a minute. OBJECTIVE: VITAL SIGNS: He is afebrile, heart rate 77, respirations 18, oxygen saturation 96% on room air, and blood pressure 126/58. CARDIOVASCULAR SYSTEM: S1 and S2 plus. RESPIRATORY SYSTEM: Normal vesicular breath sounds. ABDOMEN: Soft and nontender. Bowel sounds heard in all quadrants. EXTREMITIES: Without cyanosis or clubbing. CENTRAL NERVOUS SYSTEM: Persistent right leg weakness and pain. IMPRESSION: 1. Lumbar radiculopathy with persistent right leg weakness. 2. Hypertension. 3. Osteoarthritis. 4. Benign prostatic hypertrophy. 5. Depression. 6. Fanconi syndrome. 7. Osteoarthritis. PLAN: 1. Continue current medications. 2. Heart healthy diet. 3. Physical Therapy. 4. Nutritional support. 5. Routine laboratory values. 6. Continue current medications. Job ID: [id number]
[2020-04-04] MEDS: Amlodipine 5 MG TAB PO SCH (20:11)
[2020-04-04] MEDS: tiZANidine HCl 4 MG TAB PO PRN (20:11)
[2020-04-04] MEDS: traMADol HCl 50 MG TAB PO PRN (20:12)
[2020-04-05] MEDS: Vit A,C & E/Lutein/Minerals Tablet PO SCH (08:31)
[2020-04-05] MEDS: Ascorbic Acid 500 mg Chewable Tablet PO SCH (08:31)
[2020-04-05] MEDS: Fish Oil 1,000 MG CAP PO SCH (08:32)
[2020-04-05] MEDS: Sucralfate 1 GM TAB PO SCH ×2 (08:32→17:21)
[2020-04-05] MEDS: Stress 600 With Zinc 1 TAB PO SCH (08:32)
[2020-04-05] MEDS: Tamsulosin HCl 0.4 MG CAP PO SCH ×2 (08:32→20:42)
[2020-04-05] MEDS: Gabapentin 300 MG CAP PO SCH ×3 (08:33→20:42)
[2020-04-05] MEDS: Lisinopril 20 MG TAB PO SCH (08:34)
--- NOTE | 2020-04-05 08:44 | PRG ---
DATE OF SERVICE: 04/05/2020 SUBJECTIVE: Mr. Lauren is resting in bed. He is complaining of soreness to his right knee as he did that bicycle yesterday. He used to like he is getting stronger. Had a long discussion with his and yesterday his states that she would prefer that he be able to stand on his own with the help of a walker before he comes home to help her take care of him, but she is not requiring that to be the case. She said that if he cannot stand and she will make whatever adjustments she needs. OBJECTIVE: VITAL SIGNS: He is afebrile, heart rate 68, respirations 20, oxygen saturation 97% on room air, and blood pressure 116/56. CARDIOVASCULAR SYSTEM: S1 and S2 plus. RESPIRATORY SYSTEM: Normal vesicular breath sounds. ABDOMEN: Soft and nontender. Bowel sounds heard in all quadrants. EXTREMITIES: Without cyanosis or clubbing. CENTRAL NERVOUS SYSTEM: Persistent right leg weakness. IMPRESSION: 1. Lumbar radiculopathy with right leg weakness. 2. Hypertension. 3. Benign prostatic hyperplasia. 4. Depression. 5. Osteoarthritis. 6. Fanconi syndrome. 7. Deconditioning. PLAN: 1. Continue current medications. 2. Low-sodium diet. 3. Continue therapy. 4. Routine laboratory values. 5. Discussed with the patient in detail. All questions answered. Job ID: [id number]
[2020-04-05] MEDS: traMADol HCl 50 MG TAB PO PRN (20:42)
[2020-04-05] MEDS: tiZANidine HCl 4 MG TAB PO PRN (20:42)
[2020-04-05] MEDS: Amlodipine 5 MG TAB PO SCH (20:42)
[2020-04-06] MEDS: Sucralfate 1 GM TAB PO SCH ×2 (07:27→16:32)
[2020-04-06] MEDS: Ascorbic Acid 500 mg Chewable Tablet PO SCH (08:08)
[2020-04-06] MEDS: Tamsulosin HCl 0.4 MG CAP PO SCH ×2 (08:09→20:36)
[2020-04-06] MEDS: Stress 600 With Zinc 1 TAB PO SCH (08:09)
[2020-04-06] MEDS: Gabapentin 300 MG CAP PO SCH ×3 (08:09→20:36)
[2020-04-06] MEDS: Lisinopril 20 MG TAB PO SCH (08:09)
[2020-04-06] MEDS: Fish Oil 1,000 MG CAP PO SCH (08:09)
[2020-04-06] MEDS: Vit A,C & E/Lutein/Minerals Tablet PO SCH (08:10)
--- NOTE | 2020-04-06 18:02 | PRG ---
DATE OF SERVICE: 04/06/2020 SUBJECTIVE: Mr. Lauren is resting in bed. Denies any complaints. His right leg pain is improving. No family at bedside. Discussed with nursing. OBJECTIVE: VITAL SIGNS: He is afebrile, heart rate 75, respirations 16, oxygen saturation 93% on room air, blood pressure 128/62. CARDIOVASCULAR: S1 and S2 plus. RESPIRATORY: Normal vesicular breath sounds. ABDOMEN: Soft, nontender. Bowel sounds heard in all quadrants. EXTREMITIES: Without cyanosis or clubbing. CENTRAL NERVOUS SYSTEM: Persistent right leg weakness. IMPRESSION: 1. Lumbar radiculopathy with persistent right leg weakness. 2. Hypertension. 3. Osteoarthritis. 4. Benign prostatic hypertrophy. 5. Depression. 6. Deconditioning. PLAN: 1. Continue current medications. 2. Nutritional support with low-sodium diet. 3. Continue therapy. 4. Routine laboratory values. Job ID: [id number]
[2020-04-06] MEDS: tiZANidine HCl 4 MG TAB PO PRN (20:34)
[2020-04-06] MEDS: Amlodipine 5 MG TAB PO SCH (20:34)
[2020-04-06] MEDS: traMADol HCl 50 MG TAB PO PRN (20:35)
[2020-04-07] MEDS: Sucralfate 1 GM TAB PO SCH ×2 (07:58→16:46)
[2020-04-07] MEDS: traMADol HCl 50 MG TAB PO PRN ×2 (07:59→20:48)
[2020-04-07] MEDS: Fish Oil 1,000 MG CAP PO SCH (08:00)
[2020-04-07] MEDS: Gabapentin 300 MG CAP PO SCH ×3 (08:00→20:50)
[2020-04-07] MEDS: Ascorbic Acid 500 mg Chewable Tablet PO SCH (08:00)
[2020-04-07] MEDS: Tamsulosin HCl 0.4 MG CAP PO SCH ×2 (08:01→20:50)
[2020-04-07] MEDS: Stress 600 With Zinc 1 TAB PO SCH (08:01)
[2020-04-07] MEDS: Lisinopril 20 MG TAB PO SCH (08:01)
[2020-04-07] MEDS: Vit A,C & E/Lutein/Minerals Tablet PO SCH (08:01)
--- NOTE | 2020-04-07 15:28 | PRG ---
DATE OF SERVICE: 04/07/2020 SUBJECTIVE: Mr. Lauren is resting comfortably. He did notice more neuropathic pain today. Denies any questions or concerns. OBJECTIVE: VITAL SIGNS: He is afebrile. Heart rate 89, respirations 18, oxygen saturation 96% on room air, blood pressure 142/60. CARDIOVASCULAR: S1 and S2 plus. RESPIRATORY: Normal vesicular breath sounds. ABDOMEN: Soft, nontender. Bowel sounds heard in all quadrants. EXTREMITIES: Without cyanosis or clubbing. CENTRAL NERVOUS SYSTEM: Persistent right leg weakness and pain. IMPRESSION: 1. Lumbar radiculopathy with persistent right leg weakness. 2. Hypertension. 3. Benign prostatic hypertrophy. 4. Depression. 5. Deconditioning. 6. Fanconi syndrome. 7. Osteoarthritis. PLAN: 1. Continue current medications. 2. Heart healthy diet. 3. Continue physical therapy. 4. Routine laboratory values. 5. Discharge planning. 6. The patient gabapentin. Job ID: [id number]
[2020-04-07] MEDS: tiZANidine HCl 4 MG TAB PO PRN (20:48)
[2020-04-07] MEDS: Amlodipine 5 MG TAB PO SCH (20:50)
[2020-04-08] MEDS: Stress 600 With Zinc 1 TAB PO SCH (08:53)
[2020-04-08] MEDS: Gabapentin 300 MG CAP PO SCH ×3 (08:53→20:33)
[2020-04-08] MEDS: Tamsulosin HCl 0.4 MG CAP PO SCH ×2 (08:53→20:31)
[2020-04-08] MEDS: Sucralfate 1 GM TAB PO SCH ×2 (08:53→17:26)
[2020-04-08] MEDS: Ascorbic Acid 500 mg Chewable Tablet PO SCH (08:54)
[2020-04-08] MEDS: Fish Oil 1,000 MG CAP PO SCH (08:54)
[2020-04-08] MEDS: Vit A,C & E/Lutein/Minerals Tablet PO SCH (08:54)
[2020-04-08] MEDS: Lisinopril 20 MG TAB PO SCH (08:54)
--- NOTE | 2020-04-08 12:53 | PRG ---
DATE OF SERVICE: 04/08/2020 SUBJECTIVE: Mr. Lauren is up in his chair. He just finished his lunch. His right thigh soreness maybe slightly better. He did participate with therapy. He is hoping to go home soon. No family at bedside. OBJECTIVE: VITAL SIGNS: He is afebrile. Heart rate 76, respirations 18, oxygen saturation 96% on room air, blood pressure 119/59. CARDIOVASCULAR: S1 and S2 plus. RESPIRATORY: Normal vesicular breath sounds. ABDOMEN: Soft, nontender. Bowel sounds heard in all quadrants. EXTREMITIES: Without cyanosis or clubbing. CENTRAL NERVOUS SYSTEM: Persistent right leg weakness. IMPRESSION: 1. Lumbar radiculopathy with persistent right leg weakness. 2. Hypertension. 3. Benign prostatic hypertrophy. 4. Depression. 5. Fanconi syndrome. 6. Osteoarthritis. 7. Deconditioning. PLAN: 1. Continue current medications. 2. Nutritional support with heart healthy diet. 3. Monitor blood pressure and adjust medications as needed. 4. Continue therapy. 5. Routine laboratory value. 6. Discharge planning. Job ID: [id number]
[2020-04-08] MEDS: traMADol HCl 50 MG TAB PO PRN (20:31)
[2020-04-08] MEDS: Amlodipine 5 MG TAB PO SCH (20:32)
[2020-04-08] MEDS: tiZANidine HCl 4 MG TAB PO PRN (20:32)
[2020-04-09] MEDS: Lisinopril 20 MG TAB PO SCH (08:45)
[2020-04-09] MEDS: Sucralfate 1 GM TAB PO SCH ×2 (08:45→17:35)
[2020-04-09] MEDS: Fish Oil 1,000 MG CAP PO SCH (08:45)
[2020-04-09] MEDS: Tamsulosin HCl 0.4 MG CAP PO SCH ×2 (08:45→20:28)
[2020-04-09] MEDS: Stress 600 With Zinc 1 TAB PO SCH (08:45)
[2020-04-09] MEDS: Ascorbic Acid 500 mg Chewable Tablet PO SCH (08:45)
[2020-04-09] MEDS: Vit A,C & E/Lutein/Minerals Tablet PO SCH (08:45)
[2020-04-09] MEDS: Gabapentin 300 MG CAP PO SCH ×3 (08:45→20:28)
--- NOTE | 2020-04-09 13:20 | PRG ---
DATE OF SERVICE: 04/09/2020 SUBJECTIVE: Mr. Lauren is up in his chair. He just finished his lunch. He apparently felt pretty weak working with occupational therapy, but then apparently had a good session with physical therapy. Denies any new complaints. His case conference is today and hopefully, we will get some clarification on his discharge plans. OBJECTIVE: VITAL SIGNS: He is afebrile, heart rate 79, respirations 20, oxygen saturation 95% on room air, blood pressure 116/71. CARDIOVASCULAR SYSTEM: S1 and S2 plus. RESPIRATORY SYSTEM: Normal vesicular breath sounds. ABDOMEN: Soft, nontender. Bowel sounds heard in all quadrants. EXTREMITIES: Without cyanosis or clubbing. Chronic venous insufficiency. CENTRAL NERVOUS SYSTEM: Persistent right leg weakness and pain due to lumbar radiculopathy. IMPRESSION: 1. Lumbar radiculopathy, status post decompression with persistent right leg pain and weakness. 2. Hypertension. 3. Benign prostatic hypertrophy. 4. Depression. 5. Fanconi syndrome. 6. Osteoarthritis. 7. Generalized weakness. 8. Chronic venous insufficiency. PLAN: 1. Continue current medications. 2. Heart-healthy diet. 3. Monitor blood pressure and adjust medications as needed. 4. Physical therapy. 5. Routine laboratory values. 6. Discharge planning. 7. No new changes. Discussed with the patient. Job ID: [id number]
[2020-04-09] MEDS: Amlodipine 5 MG TAB PO SCH (20:27)
[2020-04-09] MEDS: tiZANidine HCl 4 MG TAB PO PRN (20:28)
[2020-04-10] MEDS: Sucralfate 1 GM TAB PO SCH ×2 (07:00→16:45)
[2020-04-10] MEDS: Stress 600 With Zinc 1 TAB PO SCH (09:16)
[2020-04-10] MEDS: Fish Oil 1,000 MG CAP PO SCH (09:16)
[2020-04-10] MEDS: Gabapentin 300 MG CAP PO SCH ×3 (09:16→20:37)
[2020-04-10] MEDS: Ascorbic Acid 500 mg Chewable Tablet PO SCH (09:16)
[2020-04-10] MEDS: Tamsulosin HCl 0.4 MG CAP PO SCH ×2 (09:16→20:37)
[2020-04-10] MEDS: Vit A,C & E/Lutein/Minerals Tablet PO SCH (09:16)
[2020-04-10] MEDS: Lisinopril 20 MG TAB PO SCH (09:16)
--- NOTE | 2020-04-10 13:02 | PRG ---
DATE OF SERVICE: 04/10/2020 SUBJECTIVE: Mr. Lauren is doing well. He apparently had a good day with therapy today. He was able to stand up on his own with the help of a walker from his bed. Denies any concerns or questions. OBJECTIVE: VITAL SIGNS: He is afebrile. Heart rate 90, respirations 18, oxygen saturation 97% on room air, and blood pressure 127/61. CARDIOVASCULAR SYSTEM: S1 and S2 plus. RESPIRATORY SYSTEM: Normal vesicular breath sounds. ABDOMEN: Soft, nontender. Bowel sounds heard in all quadrants extremities. EXTREMITIES: Without cyanosis or clubbing. Trace edema. CENTRAL NERVOUS SYSTEM: Persistent right leg weakness and pain, slowly improving. IMPRESSION: 1. Lumbar radiculopathy with persistent right leg weakness and pain. 2. Hypertension. 3. BPH. 4. Depression. 5. Osteoarthritis. 6. Fanconi syndrome. 7. Improving deconditioning. PLAN: 1. Continue current medications. 2. Nutritional support. 3. DVT and stress ulcer prophylaxis. 4. Decubitus precautions. 5. Physical therapy. 6. Discharge planning. Job ID: [id number]
[2020-04-10] MEDS: tiZANidine HCl 4 MG TAB PO PRN (20:37)
[2020-04-10] MEDS: Amlodipine 5 MG TAB PO SCH (20:38)
[2020-04-11] MEDS: Sucralfate 1 GM TAB PO SCH ×2 (07:11→17:05)
[2020-04-11] MEDS: Ascorbic Acid 500 mg Chewable Tablet PO SCH (09:13)
[2020-04-11] MEDS: Vit A,C & E/Lutein/Minerals Tablet PO SCH (09:13)
[2020-04-11] MEDS: Gabapentin 300 MG CAP PO SCH ×3 (09:13→20:20)
[2020-04-11] MEDS: Tamsulosin HCl 0.4 MG CAP PO SCH ×2 (09:13→20:20)
[2020-04-11] MEDS: Fish Oil 1,000 MG CAP PO SCH (09:13)
[2020-04-11] MEDS: Stress 600 With Zinc 1 TAB PO SCH (09:13)
[2020-04-11] MEDS: Lisinopril 20 MG TAB PO SCH (09:13)
--- NOTE | 2020-04-11 13:35 | PRG ---
DATE OF SERVICE: 04/11/2020 SUBJECTIVE: Mr. Lauren is doing well. He states that he had another good day of therapy today. He is happy with his progress. He is looking forward to his eventual discharge. OBJECTIVE: VITAL SIGNS: He is afebrile, heart rate 78, respirations 18, oxygen saturation 93% on room air, and blood pressure 122/57. CARDIOVASCULAR SYSTEM: S1 and S2 plus. RESPIRATORY SYSTEM: Normal vesicular breath sounds. ABDOMEN: Soft and nontender. Bowel sounds heard in all quadrants. EXTREMITIES: Without cyanosis or clubbing. CENTRAL NERVOUS SYSTEM: Improving deconditioning. IMPRESSION: 1. Right leg weakness secondary to lumbar radiculopathy with residual deficits. 2. Hypertension. 3. Osteoarthritis. 4. Fanconi syndrome. 5. Benign prostatic hyperplasia. 6. Depression. PLAN: 1. Continue current medications. 2. Nutritional support. 3. Continue therapy. 4. Routine laboratory values. 5. Discharge planning. Job ID: [id number]
[2020-04-11] MEDS: Amlodipine 5 MG TAB PO SCH (20:20)
[2020-04-11] MEDS: tiZANidine HCl 4 MG TAB PO PRN (20:20)
[2020-04-12] MEDS: Ascorbic Acid 500 mg Chewable Tablet PO SCH (08:33)
[2020-04-12] MEDS: Stress 600 With Zinc 1 TAB PO SCH (08:33)
[2020-04-12] MEDS: Tamsulosin HCl 0.4 MG CAP PO SCH ×2 (08:33→20:56)
[2020-04-12] MEDS: Gabapentin 300 MG CAP PO SCH ×3 (08:33→20:56)
[2020-04-12] MEDS: Sucralfate 1 GM TAB PO SCH ×2 (08:34→16:43)
[2020-04-12] MEDS: Vit A,C & E/Lutein/Minerals Tablet PO SCH (08:34)
[2020-04-12] MEDS: Fish Oil 1,000 MG CAP PO SCH (08:34)
[2020-04-12] MEDS: Lisinopril 20 MG TAB PO SCH (08:35)
[2020-04-12] MEDS: Amlodipine 5 MG TAB PO SCH (20:56)
[2020-04-12] MEDS: tiZANidine HCl 4 MG TAB PO PRN (20:56)
[2020-04-13] MEDS: Stress 600 With Zinc 1 TAB PO SCH (07:33)
[2020-04-13] MEDS: Ascorbic Acid 500 mg Chewable Tablet PO SCH (07:33)
[2020-04-13] MEDS: Vit A,C & E/Lutein/Minerals Tablet PO SCH (07:34)
[2020-04-13] MEDS: Gabapentin 300 MG CAP PO SCH ×3 (07:34→20:23)
[2020-04-13] MEDS: Tamsulosin HCl 0.4 MG CAP PO SCH ×2 (07:35→20:23)
[2020-04-13] MEDS: Sucralfate 1 GM TAB PO SCH ×2 (07:35→17:15)
[2020-04-13] MEDS: Lisinopril 20 MG TAB PO SCH (07:35)
[2020-04-13] MEDS: Fish Oil 1,000 MG CAP PO SCH (07:35)
[2020-04-13] MEDS: Amlodipine 5 MG TAB PO SCH (20:23)
[2020-04-13] MEDS: tiZANidine HCl 4 MG TAB PO PRN (20:23)
[2020-04-14] MEDS: Vit A,C & E/Lutein/Minerals Tablet PO SCH (08:03)
[2020-04-14] MEDS: Stress 600 With Zinc 1 TAB PO SCH (08:03)
[2020-04-14] MEDS: Ascorbic Acid 500 mg Chewable Tablet PO SCH (08:03)
[2020-04-14] MEDS: Fish Oil 1,000 MG CAP PO SCH (08:03)
[2020-04-14] MEDS: Gabapentin 300 MG CAP PO SCH ×3 (08:04→20:34)
[2020-04-14] MEDS: Lisinopril 20 MG TAB PO SCH (08:04)
[2020-04-14] MEDS: Tamsulosin HCl 0.4 MG CAP PO SCH ×2 (08:05→20:34)
[2020-04-14] MEDS: Sucralfate 1 GM TAB PO SCH ×2 (08:05→17:03)
--- NOTE | 2020-04-14 19:56 | PRG ---
DATE OF SERVICE: 04/13/2020 SUBJECTIVE: The patient feels well, lying in the bed with decreasing pain in his back and in fact some increasing strength in his legs. He is very pleased with his progress, although he still feels he is unable to maintain ADLs. OBJECTIVE: VITAL SIGNS: Show temperature 97, pulse 100, respirations 20, O2 saturations 97% on room air, blood pressure 129/59. LUNGS: Clear. CARDIAC: Shows regular rhythm. ABDOMEN: Soft, nontender. BACK: Shows minimal tenderness to palpation. EXTREMITIES: Right leg shows increased strength and flexion of the hip, knee, and the ankle. ASSESSMENT: 1. Resolving radiculopathy. 2. Healing laminectomy. 3. Stable hypertension. 4. Stable benign prostatic hypertrophy. 5. Resolving depression. Job ID: [id number]
--- NOTE | 2020-04-14 20:01 | PRG ---
DATE OF SERVICE: 04/14/2020 SUBJECTIVE: The patient is lying in bed, resting, watching TV, looking for do more therapy tomorrow. He states that his leg is getting stronger. He is able to transfer from a chair to the commode now and from the chair to the bed. Having persistent, but greatly decreased back pain. OBJECTIVE: VITAL SIGNS: Show blood pressure is 135/64, temperature is 97, pulse 88, respirations 19, and O2 sat is 97% on room air. LUNGS: Clear. CARDIAC: Showed regular rhythm. ABDOMEN: Soft and nontender. SKIN/EXTREMITIES: Show no edema, clubbing, or cyanosis. NEUROLOGIC: Shows increasing strength, and the right leg although is still very weak and can hardly move against gravity. ASSESSMENT: 1. Resolving lumbar radiculopathy. 2. Healed lumbar laminectomy. 3. Stable hypertension. 4. Improved depression. PLAN: Continue PT, OT. Dr. Pacheco back tonight. Job ID: [id number]
[2020-04-14] MEDS: Amlodipine 5 MG TAB PO SCH (20:34)
[2020-04-14] MEDS: tiZANidine HCl 4 MG TAB PO PRN (20:36)
[2020-04-15] MEDS: Gabapentin 300 MG CAP PO SCH ×3 (07:44→20:15)
[2020-04-15] MEDS: Sucralfate 1 GM TAB PO SCH ×2 (07:44→17:09)
[2020-04-15] MEDS: Lisinopril 20 MG TAB PO SCH (07:45)
[2020-04-15] MEDS: Fish Oil 1,000 MG CAP PO SCH (07:45)
[2020-04-15] MEDS: Vit A,C & E/Lutein/Minerals Tablet PO SCH (07:45)
[2020-04-15] MEDS: Tamsulosin HCl 0.4 MG CAP PO SCH ×2 (07:45→20:15)
[2020-04-15] MEDS: Ascorbic Acid 500 mg Chewable Tablet PO SCH (07:46)
[2020-04-15] MEDS: Stress 600 With Zinc 1 TAB PO SCH (07:47)
--- NOTE | 2020-04-15 13:12 | PRG ---
DATE OF SERVICE: 04/15/2020 SUBJECTIVE: Mr. Lauren is up in his chair. He just finished his lunch. Denies any concerns or questions. He is hoping to go home soon. OBJECTIVE: VITAL SIGNS: He is afebrile. Heart rate 78, respirations 21, oxygen saturation 95% on room air, blood pressure 130/62. CARDIOVASCULAR: S1 and S2 plus. RESPIRATORY: Normal vesicular breath sounds. ABDOMEN: Soft, nontender. Bowel sounds heard in all quadrants. EXTREMITIES: Without cyanosis or clubbing. Trace edema. CENTRAL NERVOUS SYSTEM: Persistent right leg weakness and pain. IMPRESSION: 1. Lumbar radiculopathy with persistent right leg weakness and pain. 2. Hypertension. 3. Osteoarthritis. 4. BPH. 5. Depression. 6. Fanconi syndrome. PLAN: 1. Continue current medications. 2. Nutritional support. 3. Monitor blood pressure and adjust medications. 4. Physical therapy. 5. Discharge planning. 6. Routine laboratory values. Job ID: [id number]
[2020-04-15] MEDS: Amlodipine 5 MG TAB PO SCH (20:15)
[2020-04-15] MEDS: tiZANidine HCl 4 MG TAB PO PRN (20:15)
[2020-04-16] MEDS: Gabapentin 300 MG CAP PO SCH ×3 (08:11→20:02)
[2020-04-16] MEDS: Lisinopril 20 MG TAB PO SCH (08:11)
[2020-04-16] MEDS: Fish Oil 1,000 MG CAP PO SCH (08:11)
[2020-04-16] MEDS: Sucralfate 1 GM TAB PO SCH ×2 (08:11→17:02)
[2020-04-16] MEDS: Tamsulosin HCl 0.4 MG CAP PO SCH ×2 (08:12→20:02)
[2020-04-16] MEDS: Vit A,C & E/Lutein/Minerals Tablet PO SCH (08:12)
[2020-04-16] MEDS: Stress 600 With Zinc 1 TAB PO SCH (08:12)
[2020-04-16] MEDS: Ascorbic Acid 500 mg Chewable Tablet PO SCH (08:13)
--- NOTE | 2020-04-16 13:53 | PRG ---
DATE OF SERVICE: 04/16/2020 SUBJECTIVE: Mr. Lauren is doing the same. Denies any complaints. Would like to go home soon, waiting on case conference from Therapy, and we will talk to them and see if he is ready. Medically, he is doing well and stable. OBJECTIVE: VITAL SIGNS: He is afebrile. Heart rate 78, respirations 15, oxygen saturation 95% on room air, blood pressure 130/61. CARDIOVASCULAR: S1 and S2 plus. RESPIRATORY: Normal vesicular breath sounds. ABDOMEN: Soft and nontender. Bowel sounds heard in all quadrants. EXTREMITIES: Without cyanosis or clubbing. Chronic venous insufficiency. CENTRAL NERVOUS SYSTEM: Persistent right leg weakness and pain. IMPRESSION: 1. Lumbar radiculopathy with persistent right leg weakness and pain. 2. Hypertension. 3. Benign prostatic hypertrophy. 4. Depression. 5. Fanconi syndrome. 6. Osteoarthritis. 7. Deconditioning. PLAN: 1. Continue current medications. 2. Nutritional support. 3. DVT prophylaxis with PlexiPulses. The patient has been refusing, but he is also very low risk as he is pretty much active. 4. Decubitus precautions. 5. Stress ulcer prophylaxis. 6. Routine laboratory values. 7. Await case conference and hopefully discharge the patient home before the end of the week. Job ID: [id number]
[2020-04-16] MEDS: Amlodipine 5 MG TAB PO SCH (20:02)
[2020-04-16] MEDS: tiZANidine HCl 4 MG TAB PO PRN (20:02)
[2020-04-17] MEDS: Tamsulosin HCl 0.4 MG CAP PO SCH ×2 (08:31→20:43)
[2020-04-17] MEDS: Vit A,C & E/Lutein/Minerals Tablet PO SCH (08:31)
[2020-04-17] MEDS: Sucralfate 1 GM TAB PO SCH ×2 (08:31→17:37)
[2020-04-17] MEDS: Fish Oil 1,000 MG CAP PO SCH (08:31)
[2020-04-17] MEDS: Lisinopril 20 MG TAB PO SCH (08:31)
[2020-04-17] MEDS: Stress 600 With Zinc 1 TAB PO SCH (08:31)
[2020-04-17] MEDS: Ascorbic Acid 500 mg Chewable Tablet PO SCH (08:32)
[2020-04-17] MEDS: Gabapentin 300 MG CAP PO SCH ×3 (08:32→20:43)
[2020-04-17] MEDS: Amlodipine 5 MG TAB PO SCH (20:43)
[2020-04-17] MEDS: tiZANidine HCl 4 MG TAB PO PRN (20:43)
[2020-04-18] MEDS: Ascorbic Acid 500 mg Chewable Tablet PO SCH (09:02)
[2020-04-18] MEDS: Gabapentin 300 MG CAP PO SCH (09:02)
[2020-04-18] MEDS: Sucralfate 1 GM TAB PO SCH (09:02)
[2020-04-18] MEDS: Vit A,C & E/Lutein/Minerals Tablet PO SCH (09:03)
[2020-04-18] MEDS: Fish Oil 1,000 MG CAP PO SCH (09:03)
[2020-04-18] MEDS: Stress 600 With Zinc 1 TAB PO SCH (09:03)
[2020-04-18] MEDS: Lisinopril 20 MG TAB PO SCH (09:03)
[2020-04-18] MEDS: Tamsulosin HCl 0.4 MG CAP PO SCH (09:03)
[2020-04-18 13:07] VITALS: BP 124/59; TEMP 98.7
--- NOTE | 2020-04-18 17:32 | DIS ---
DATE OF ADMISSION: 02/23/2020 DATE OF DISCHARGE: 04/18/2020 PRINCIPAL DIAGNOSIS: Persistent lumbar radiculopathy with right leg weakness and pain. SECONDARY DIAGNOSES: 1. Hypertension. 2. Dyslipidemia. 3. Fanconi syndrome. 4. Osteoarthritis. 5. History of TIA and CVA. 6. Gastroesophageal reflux disease. 7. Depression. 8. Benign prostatic hypertrophy. 9. Deconditioning. COMPLICATIONS: None. ADVERSE REACTIONS: None. PROCEDURES: None. CONSULTATIONS: Physical Therapy and Occupational Therapy. HOSPITAL COURSE: The patient was transferred from inpatient rehab due to persistent weakness in ability to do his ADLs. He has been working with therapy and although he has been unable to stand and walk on his own. He apparently is doing well using a sliding board and getting himself out of bed into his chair and from his chair to his commode. He had to be started on sertraline for depressive symptoms and he has done well. He also complained of symptoms consistent with BPH and he was started on Flomax once daily and then titrated to b.i.d. and since then has been doing great. His acid reflux symptoms are much improved and he does not want to continue the Carafate. He will continue on the pantoprazole. He also has not needed any tramadol in the last 10 days. He is being discharged to home with his . Home health has been arranged. He is to follow up in my office in 3 to 4 weeks. Prescription for his sertraline 50 mg daily, Flomax 0.4 mg b.i.d., and at bedtime p.r.n. has been sent in to his local [facility], which [facility] Heart healthy diet, activity as tolerated, and he is to call me with any questions or concerns. He is to follow up in my office in 3 to 4 weeks. PHYSICAL EXAMINATION: VITAL SIGNS: On the day of discharge, he is afebrile. Heart rate 77, respirations 18, oxygen saturation 97% on room air, blood pressure 123/59. CARDIOVASCULAR: S1 and S2 plus. RESPIRATORY: Normal vesicular breath sounds. ABDOMEN: Soft, nontender. Bowel sounds heard in all quadrants. EXTREMITIES: Without cyanosis or clubbing. Trace edema. Peripheral pulses are palpable. CENTRAL NERVOUS SYSTEM: Persistent right leg weakness and pain. Otherwise, nonfocal. DISCHARGE MEDICATIONS: 1. Amlodipine 10 mg at bedtime. 2. Gabapentin 300 mg t.i.d. 3. Lisinopril 20 mg daily in the morning. 4. Pantoprazole 40 mg daily. 5. Multivitamin one daily. 6. Zoloft 50 mg daily. 7. Tamsulosin 0.4 mg b.i.d. 8. Zanaflex 4 mg at bedtime. For full details, please see chart. Total time spent on this discharge including coordination of care and sending prescriptions 37 minutes. Also spoke with his in detail and all questions answered. Job ID: [id number]
== END 2020-04-18 14:00 | disposition home health service (06) | DRG 552 ==
LOC: NAV ACUTE 18:52
PROVIDERS: ADMIT Internal Medicine; ATTEND Internal Medicine
DX: M54.16 Radiculopathy, lumbar region (principal); E72.09 Other disorders of amino-acid transport; E87.1 Hypo-osmolality and hyponatremia; D62 Acute posthemorrhagic anemia; I10 Essential (primary) hypertension; E78.5 Hyperlipidemia, unspecified; K21.9 Gastro-esophageal reflux disease without esophagitis; F32.9 Major depressive disorder, single episode, unspecified; N40.0 Benign prostatic hyperplasia without lower urinary tract symptoms; R53.81 Other malaise; M19.90 Unspecified osteoarthritis, unspecified site; Z96.652 Presence of left artificial knee joint; R13.10 Dysphagia, unspecified; E11.42 Type 2 diabetes mellitus with diabetic polyneuropathy; Z86.73 Personal history of transient ischemic attack (TIA), and cerebral infarction without residual deficits; Z79.4 Long term (current) use of insulin
CPT/HCPCS: 36415; 36416; 71045; 80048; 80053; 81001; 82607; 82746; 85025

== ENCOUNTER 2020-06-15 20:32 | Inpatient (IN) | payer MEDICARE, OTHER ==
[2020-06-15] MEDS ORDERED: tiZANidine HCl 4 MG TAB PO PRN (21:02)
[2020-06-15] MEDS ORDERED: Acetaminophen/Codeine 30-300mg Tablet PO PRN (21:08)
[2020-06-15] MEDS ORDERED: Apixaban 5 MG TAB PO SCH (21:15)
[2020-06-15] MEDS ORDERED: Amlodipine 5 MG TAB PO SCH (21:15)
[2020-06-15] MEDS ORDERED: metroNIDAZOLE 500 MG in Premix Bag 1 BAG IVPB SCH (22:00)
[2020-06-15] MEDS: Gabapentin 300 MG CAP PO SCH (22:05)
[2020-06-15] MEDS: Atorvastatin Calcium 40 MG TAB PO SCH (22:05)
[2020-06-15] MEDS: Cefepime 2 GM in Sodium Chloride 0.9% 100 ML IVPB SCH (22:05)
[2020-06-16] MEDS ORDERED: Sodium Chloride 0.9% 20 ML ONE (05:34)
[2020-06-16 05:35] LABS: #Basophils 0.1 thou/uL (0.0-0.2); #Eosinphils 0.2 thou/uL (0.0-0.7); #Lymphocytes 1.3 thou/uL (1.20-3.40); #Monocytes 0.9 thou/uL (0.11-0.59); #Neutrophils 6.6 thou/uL (1.40-6.50); %Basophils 0.7 % (0.0-1.0); %Eosinophils 2.7 % (0.0-10.0); %Lymphocytes 14.7 % (21.0-51.0); %Monocytes 9.4 % (0.0-10.0); %Neutrophils 72.6 % (42.0-75.0); Hemoglobin 9.7 g/dL (14.0-18.0); Mean Corpuscular HGB CONC 30.8 g/dL (32.0-36.0); Mean Corpuscular Hemoglobin 28.8 pg (27.0-31.0); Mean Corpuscular Volume 93.5 fL (78.0-98.0); Mean Platelet Volume 7.1 fL (7.4-10.4); Platelet Count 238 thou/uL (130-400); RBC Distribution Width 15.3 % (11.5-14.5); Red Blood Cell (RBC) Count 3.35 mill/uL (4.70-6.10); White Blood Cell (WBC) Count 9.1 thou/uL (4.8-10.8)
[2020-06-16] MEDS: metroNIDAZOLE 500 MG in Premix Bag 1 BAG IVPB SCH ×3 (05:35→21:27)
[2020-06-16 05:52] LABS: Anion Gap 12 mmol/L (10-20); BUN (Urea Nitrogen) 13 mg/dL (8.4-25.7); Calc. Creatinine Clearance 111 mL/min (70-130); Calcium 8.3 mg/dL (7.8-10.44); Carbon Dioxide 24 mmol/L (23-31); Chloride 110 mmol/L (98-107); Estimated GFR-MDRD 79; Glucose 109 mg/dL (83-110); Potassium 3.5 mmol/L (3.5-5.1); Sodium 142 mmol/L (136-145)
[2020-06-16] MEDS: Dronedarone HCl 400 MG TAB PO SCH ×2 (08:25→16:56)
[2020-06-16] MEDS: Apixaban 5 MG TAB PO SCH ×2 (08:25→21:23)
[2020-06-16] MEDS: Ascorbic Acid 500 mg Chewable Tablet PO SCH (08:25)
[2020-06-16] MEDS: Ferrous Sulfate 325 MG TAB PO SCH (08:25)
[2020-06-16] MEDS: Fish Oil 1,000 MG CAP PO SCH (08:26)
[2020-06-16] MEDS: Gabapentin 300 MG CAP PO SCH ×3 (08:26→21:24)
[2020-06-16] MEDS: Clopidogrel Bisulfate 75 MG TAB PO SCH (08:26)
[2020-06-16] MEDS: LIDOCAINE 5% OINTMENT TOP SCH ×4 (08:26→21:59)
[2020-06-16] MEDS: Stress 600 With Zinc 1 TAB PO SCH (08:27)
[2020-06-16] MEDS: Vit A,C & E/Lutein/Minerals Tablet PO SCH (08:27)
[2020-06-16] MEDS ORDERED: Bisacodyl 5 MG TAB PO PRN (09:16)
[2020-06-16] MEDS ORDERED: Loperamide HCl 2 MG CAP PO PRN (09:16)
[2020-06-16] MEDS ORDERED: Senokot S 8.6-50 MG TAB PO PRN (09:16)
[2020-06-16] MEDS ORDERED: Guaifenesin DM 100-10/5 ML UDCUP PO PRN (09:16)
[2020-06-16] MEDS ORDERED: Acetaminophen 325 MG TAB PO PRN (09:16)
[2020-06-16] MEDS ORDERED: Cepastat Lozenges 1 LOZ PO PRN (09:20)
[2020-06-16] MEDS ORDERED: Artificial Tear Sol 15 ML BOT EA EYE PRN (09:20)
[2020-06-16] MEDS ORDERED: cloNIDine 0.1 MG TAB PO PRN (09:20)
[2020-06-16] MEDS ORDERED: Sodium Chloride 0.9% 10 ML ONE (10:06)
[2020-06-16] MEDS: Cefepime 2 GM in Sodium Chloride 0.9% 100 ML IVPB SCH ×2 (10:17→21:20)
--- NOTE | 2020-06-16 12:43 | HP ---
HISTORY OF PRESENT ILLNESS: This is a pleasant 85-year-old male with a history of nephrolithiasis, hypertension, and peripheral vascular disease, who originally presented to [facility] on 06/05 for a routine visit. The patient has a pressure sore on his left heel, being chronically wheelchair bound. The patient was found to have fever and chills in the clinic as well as the wound is looking infected. Patient was sent to the ED for evaluation. In the ED, blood pressure was 120/40 and pulse 105, respirations 25, O2 sats 100% on room air. Lung exam was normal. However, the patient was found to have white cell count of 20, hemoglobin of 10, platelets 353 with a 92% neutrophils. MRI of the foot demonstrated osteomyelitis of the calcaneus and myositis of intrinsic foot musculature at the medial aspect of the posterior calcaneus. No abscess was noted. The patient was also found to be in atrial fibrillation on arrival with RVR. He was started on amiodarone drip after consulting Cardiology. Echo showed ejection fraction 55%, stage I diastolic dysfunction due to his underlying osteomyelitis, myositis. The patient had an abdominal aortogram with bilateral lower extremity angiogram with runoff to the feet, a percutaneous transluminal angioplasty to the left posterior tibial artery and stent implantation to the left posterior tibial artery. This was done by Dr. Harris Danielle. He recommended starting the patient on Plavix 75 mg daily and to continue his empiric antibiotics. The patient originally was started on vanc and Zosyn, and Infectious Disease was consulted who recommended starting patient on Rocephin, Flagyl, and vancomycin with a PICC line placement. The patient had a PICC line placed successfully for long-term antibiotics. Patient was eventually transitioned to p.o. amiodarone from IV and heart rate remained controlled throughout his stay. The patient did have one event of shortness of breath, but was thought to be fluid overload. The patient responded well to this. The patient remained weak, however, and was working with PT and was felt the patient needed long-term physical therapy as well as needing long-term IV antibiotics due to his osteomyelitis. The patient was transferred here to [facility] for continued antibiotic therapy and physical therapy. 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 The patient has been wheelchair bound for many years. SOCIAL HISTORY: Former smoker. Drinks socially. Lives with his in [facility]. ALLERGIES: HYDROCODONE AND NEURONTIN. MEDICATIONS: From the patient's last hospital stay include, 1. Metronidazole 500 mg IV q.8. 2. Cefepime 2 g IV piggyback every 12 hours. 3. Eliquis 5 mg oral twice daily. 4. Atorvastatin 40 mg oral q.h.s. 5. Dronedarone 40 mg oral twice daily with meals. 6. Clopidogrel 75 mg oral daily. 7. Vancomycin 1.25 g IV piggyback every 24 hours. 8. Gabapentin 300 t.i.d. 9. Vitamin B complex one tab oral daily. 10. Amlodipine 10 mg oral q.h.s. 11. Vitamin C 1000 mg oral daily. 12. Zoloft 50 mg oral daily. 13. Tizanidine 4 mg oral q.h.s. p.r.n. muscle spasms. 14. Ferrous sulfate 325 mg oral daily. 15. Of note, the patient had his lisinopril 20 mg stopped at his previous hospital stay. PHYSICAL EXAMINATION: VITAL SIGNS: Today, temperature ranging from 96.7 Fahrenheit to 97.8 Fahrenheit, pulse 75-76, respirations 16-20, O2 sats 98% on 2 L nasal cannula. BP range 132/79 to 138/76. GENERAL: Well-appearing pleasant, 85-year-old male, in no acute distress. HEENT: No thyromegaly. No carotid bruits. No rhinorrhea. No pharyngeal erythema. HEART: Irregularly irregular with a normal rate. No murmurs heard. No JVD. RESPIRATIONS: Clear to auscultation bilaterally with no wheezes. EXTREMITIES: No edema. Left pressure wound with dressing in place. NEUROLOGIC: The patient is diffusely weak, however, mentation is intact. Alert and oriented x4. LABORATORY DATA: White cells 9.1, hemoglobin 9.7, hematocrit 31.4, platelets 238. Sodium 142, potassium 3.5, chloride 110, CO2 24, BUN 13, creatinine 0.91, GFR 79, glucose 109, calcium 8.3. ASSESSMENT: 1. Weakness secondary to osteomyelitis of left calcaneus. 2. Continue his IV antibiotics secondary to osteomyelitis. 3. Hypertension. 4. Lymphedema. 5. Sepsis, resolved. 6. Atrial fibrillation, rate controlled. 7. Status post angioplasty of right leg with stent placement. PLAN: 1. Continue patient's IV antibiotics with cefepime, Flagyl and vancomycin. I will need to follow up with previous discharge plan to see the exact length of stay for him. Continue to monitor white count and any signs of sepsis. 2. Continue wound care for left calcaneal pressure ulcer. 3. PT/OT consult. 4. Case management consult for discharge planning. 5. Continue dronedarone for rate control. Continue Eliquis for thrombus prophylaxis. 6. Continue Plavix for previous stent placement. 7. Overall, the patient is doing well and has no signs of sepsis or new infections. We will continue to follow up with PT/OT in regard to therapy, as well as continuing the patient's IV antibiotics. Job ID: [id number] [id number]
[2020-06-16] MEDS: Vancomycin HCl 750 MG in Sodium Chloride 0.9% 250 ML 250 ML IVPB SCH (14:18)
[2020-06-16] MEDS: Vancomycin HCl 500 MG in Sodium Chloride 0.9% 100 ML IVPB SCH (14:19)
[2020-06-16] MEDS: Famotidine 20 MG TAB PO SCH (21:24)
[2020-06-16] MEDS: Amlodipine 5 MG TAB PO SCH (21:24)
[2020-06-16] MEDS: Atorvastatin Calcium 40 MG TAB PO SCH (21:24)
[2020-06-17 05:26] LABS: #Eosinphils 0.3 thou/uL (0.0-0.7); #Lymphocytes 1.4 thou/uL (1.20-3.40); #Monocytes 0.7 thou/uL (0.11-0.59); #Neutrophils 5.5 thou/uL (1.40-6.50); %Basophils 0.5 % (0.0-1.0); %Eosinophils 3.8 % (0.0-10.0); %Lymphocytes 17.6 % (21.0-51.0); %Monocytes 9.1 % (0.0-10.0); Hemoglobin 9.1 g/dL (14.0-18.0); Mean Corpuscular HGB CONC 30.4 g/dL (32.0-36.0); Mean Corpuscular Hemoglobin 28.3 pg (27.0-31.0); Mean Corpuscular Volume 93.1 fL (78.0-98.0); Mean Platelet Volume 7.1 fL (7.4-10.4); Platelet Count 212 thou/uL (130-400); RBC Distribution Width 15.9 % (11.5-14.5); Red Blood Cell (RBC) Count 3.22 mill/uL (4.70-6.10)
[2020-06-17] MEDS: metroNIDAZOLE 500 MG in Premix Bag 1 BAG IVPB SCH ×3 (05:42→21:33)
[2020-06-17 05:43] LABS: Anion Gap 12 mmol/L (10-20); BUN (Urea Nitrogen) 12 mg/dL (8.4-25.7); Calc. Creatinine Clearance 119 mL/min (70-130); Calcium 8.1 mg/dL (7.8-10.44); Carbon Dioxide 23 mmol/L (23-31); Chloride 112 mmol/L (98-107); Estimated GFR-MDRD 86; Glucose 104 mg/dL (83-110); Potassium 3.6 mmol/L (3.5-5.1); Sodium 143 mmol/L (136-145)
[2020-06-17] MEDS: Saccharomyces boulardii 250 MG CAP PO SCH (09:22)
[2020-06-17] MEDS: Vit A,C & E/Lutein/Minerals Tablet PO SCH (09:23)
[2020-06-17] MEDS: Ascorbic Acid 500 mg Chewable Tablet PO SCH (09:23)
[2020-06-17] MEDS: Stress 600 With Zinc 1 TAB PO SCH (09:23)
[2020-06-17] MEDS: LIDOCAINE 5% OINTMENT TOP SCH ×4 (09:23→20:55)
[2020-06-17] MEDS: Famotidine 20 MG TAB PO SCH ×2 (09:27→20:54)
[2020-06-17] MEDS: Gabapentin 300 MG CAP PO SCH ×3 (09:27→20:54)
[2020-06-17] MEDS: Ferrous Sulfate 325 MG TAB PO SCH (09:28)
[2020-06-17] MEDS: Apixaban 5 MG TAB PO SCH ×2 (09:28→20:54)
[2020-06-17] MEDS: Clopidogrel Bisulfate 75 MG TAB PO SCH (09:28)
[2020-06-17] MEDS: Fish Oil 1,000 MG CAP PO SCH (09:28)
[2020-06-17] MEDS: Dronedarone HCl 400 MG TAB PO SCH ×2 (09:28→16:29)
[2020-06-17] MEDS: Cefepime 2 GM in Sodium Chloride 0.9% 100 ML IVPB SCH ×2 (09:29→21:33)
--- NOTE | 2020-06-17 13:44 | PRG ---
DATE OF SERVICE: 06/17/2020 SUBJECTIVE: Mr. Lauren is up in his chair. He denies any complaints, but he thinks that somebody told him that the wound care doctor is going to come by and debride this wound. I am going to review with his nurse and therapist. He is tolerating his antibiotics. No fever or chills. He was recently diagnosed with osteomyelitis and I think the end date for his antibiotics is July 19. OBJECTIVE: VITAL SIGNS: The patient is afebrile, heart rate 67, respirations 16, oxygen saturation 98% on 2 L, blood pressure 128/68. CARDIOVASCULAR SYSTEM: S1 and S2 plus. RESPIRATORY SYSTEM: Normal vesicular breath sounds. ABDOMEN: Soft, nontender, obese. Bowel sounds heard in all quadrants. EXTREMITIES: Without cyanosis or clubbing. Left heel with dressing. IMPRESSION: 1. Peripheral vascular disease. 2. Hypertension. 3. Osteomyelitis to left heel. 4. Osteoarthritis. 5. Recent PTCA and stent placement to the left posterior tibial artery. 6. Dyslipidemia. 7. Recent lumbar radiculopathy, status post surgery. 8. Atrial fibrillation, currently on Multaq and Eliquis. 9. Peripheral neuropathy. 10. Deconditioning. PLAN: 1. Continue current medications including IV antibiotics. 2. Weekly CBC, CMP, CRP, and sedimentation rate. 3. Wound care. 4. PT/OT eval and treat. 5. Heart healthy diet. 6. Monitor heart rate and rhythm. 7. DVT prophylaxis-the patient is on Eliquis. 8. Decubitus precautions. 9. Stress ulcer prophylaxis. 10. Wound Care consult. 11. Discussed with the patient and spouse in detail. All questions answered. Job ID: [id number] MTDD
[2020-06-17 14:23] LABS: Vancomycin, Trough 18.9 ug/mL
[2020-06-17] MEDS: Vancomycin HCl 750 MG in Sodium Chloride 0.9% 250 ML 250 ML IVPB SCH (16:09)
[2020-06-17] MEDS: Vancomycin HCl 500 MG in Sodium Chloride 0.9% 100 ML IVPB SCH (16:28)
[2020-06-17] MEDS: Atorvastatin Calcium 40 MG TAB PO SCH (20:54)
[2020-06-17] MEDS: Amlodipine 5 MG TAB PO SCH (20:54)
[2020-06-18] MEDS: metroNIDAZOLE 500 MG in Premix Bag 1 BAG IVPB SCH ×3 (05:35→21:26)
[2020-06-18] MEDS: Clopidogrel Bisulfate 75 MG TAB PO SCH (08:53)
[2020-06-18] MEDS: Vit A,C & E/Lutein/Minerals Tablet PO SCH (08:53)
[2020-06-18] MEDS: Stress 600 With Zinc 1 TAB PO SCH (08:54)
[2020-06-18] MEDS: Famotidine 20 MG TAB PO SCH ×2 (08:54→21:25)
[2020-06-18] MEDS: Gabapentin 300 MG CAP PO SCH ×3 (08:54→21:25)
[2020-06-18] MEDS: Fish Oil 1,000 MG CAP PO SCH (08:54)
[2020-06-18] MEDS: Cefepime 2 GM in Sodium Chloride 0.9% 100 ML IVPB SCH ×2 (08:55→21:25)
[2020-06-18] MEDS: Ascorbic Acid 500 mg Chewable Tablet PO SCH (08:55)
[2020-06-18] MEDS: Ferrous Sulfate 325 MG TAB PO SCH (08:55)
[2020-06-18] MEDS: Apixaban 5 MG TAB PO SCH ×2 (08:55→21:24)
[2020-06-18] MEDS: Dronedarone HCl 400 MG TAB PO SCH ×2 (08:57→17:07)
[2020-06-18] MEDS: LIDOCAINE 5% OINTMENT TOP SCH ×4 (08:57→21:25)
[2020-06-18] MEDS: Saccharomyces boulardii 250 MG CAP PO SCH (08:59)
[2020-06-18] MEDS: Vancomycin HCl 750 MG in Sodium Chloride 0.9% 250 ML 250 ML IVPB SCH (14:39)
--- NOTE | 2020-06-18 14:43 | PRG ---
DATE OF SERVICE: 06/18/2020 SUBJECTIVE: Mr. Lauren is doing well. He denies any concerns. He is up in his chair. He only has a surgical boot on his left foot and I advised him to wear it on the right to prevent any decubitus to his right heel. His left heel wound was debrided yesterday and the patient states also today by physical therapy. No concerns or questions. He also wants to get off the oxygen and I advised him to start using his incentive spirometry on a routine basis and that should help. Nursing is going to provide him with one. OBJECTIVE: VITAL SIGNS: He is afebrile. Heart rate 70, respirations 19, oxygen saturation 100% on 2 L, blood pressure 159/74. CARDIOVASCULAR: S1 and S2 plus. RESPIRATORY: Normal vesicular breath sounds. ABDOMEN: Soft, nontender. Bowel sounds heard in all quadrants. EXTREMITIES: Without cyanosis or clubbing. Persistent right leg weakness, left leg heel wound with dressing. IMPRESSION: 1. Left heel wound and osteomyelitis on long-term antibiotics. 2. Peripheral vascular disease, status post PTCA and stent to the left posterior tibial. 3. Hypertension. 4. Dyslipidemia. 5. Atrial fibrillation. 6. Diastolic dysfunction. 7. Recent lumbar radiculopathy requiring lumbar decompression and persistent right-sided weakness. 8. Peripheral neuropathy. 9. Benign prostatic hypertrophy. 10. Acute hypoxemic respiratory failure. PLAN: 1. Continue current medications. 2. Heart healthy diet. 3. Continue IV antibiotics. 4. Wound care. 5. DVT prophylaxis - he is on Eliquis. 6. Decubitus precaution. 7. Stress ulcer prophylaxis. 8. Monitor heart rate and rhythm. 9. Therapy. 10. Titrate oxygen. Job ID: [id number]
[2020-06-18] MEDS: Vancomycin HCl 500 MG in Sodium Chloride 0.9% 100 ML IVPB SCH (15:18)
[2020-06-18] MEDS: Atorvastatin Calcium 40 MG TAB PO SCH (21:24)
[2020-06-18] MEDS: Amlodipine 5 MG TAB PO SCH (21:24)
[2020-06-19] MEDS: metroNIDAZOLE 500 MG in Premix Bag 1 BAG IVPB SCH ×3 (05:38→21:18)
[2020-06-19] MEDS: Dronedarone HCl 400 MG TAB PO SCH ×2 (08:33→17:23)
[2020-06-19] MEDS: Apixaban 5 MG TAB PO SCH ×2 (08:33→21:15)
[2020-06-19] MEDS: Ferrous Sulfate 325 MG TAB PO SCH (08:33)
[2020-06-19] MEDS: Gabapentin 300 MG CAP PO SCH ×3 (08:34→21:15)
[2020-06-19] MEDS: Fish Oil 1,000 MG CAP PO SCH (08:34)
[2020-06-19] MEDS: Famotidine 20 MG TAB PO SCH ×2 (08:34→21:15)
[2020-06-19] MEDS: Ascorbic Acid 500 mg Chewable Tablet PO SCH (08:34)
[2020-06-19] MEDS: Clopidogrel Bisulfate 75 MG TAB PO SCH (08:34)
[2020-06-19] MEDS: LIDOCAINE 5% OINTMENT TOP SCH ×4 (08:34→22:14)
[2020-06-19] MEDS: Vit A,C & E/Lutein/Minerals Tablet PO SCH (08:35)
[2020-06-19] MEDS: Saccharomyces boulardii 250 MG CAP PO SCH (08:35)
[2020-06-19] MEDS: Stress 600 With Zinc 1 TAB PO SCH (08:35)
[2020-06-19] MEDS ORDERED: Sodium Chloride 0.9% 10 ML ONE (10:15)
[2020-06-19] MEDS: Cefepime 2 GM in Sodium Chloride 0.9% 100 ML IVPB SCH ×2 (10:21→21:18)
--- NOTE | 2020-06-19 14:49 | PRG ---
DATE OF SERVICE: 06/19/2020 SUBJECTIVE: Mr. Lauren is doing the same. Spoke with Physical Therapy, who is doing wound care and they feel like the patient will benefit from a Surgical consult for some extensive debridement. The patient was recently in the hospital that he was diagnosed with osteomyelitis at [facility]. I am reviewing his record and he really was not seen by a surgeon. He was seen by the Wound Care MD, so we will ask staff to schedule appointment with one of the general surgeons and arrange transportation. OBJECTIVE: VITAL SIGNS: The patient is afebrile. Heart rate 62, respirations 20, oxygen saturation 96% on room air, blood pressure 132/62. CARDIOVASCULAR: S1 and S2 plus. RESPIRATORY: Normal vesicular breath sounds. ABDOMEN: Soft, nontender. Bowel sounds heard in all quadrants. EXTREMITIES: Without cyanosis or clubbing. Left heel wound with dressing. CENTRAL NERVOUS SYSTEM: Generalized weakness. He is off his oxygen. IMPRESSION: 1. Left heel osteomyelitis. 2. Peripheral vascular disease, status post PTCA and stent to the left posterior tibial artery. 3. Benign prostatic hypertrophy. 4. Peripheral neuropathy. 5. Lumbar radiculopathy, status post decompression. 6. Osteoarthritis. 7. Fanconi syndrome. 8. Atrial fibrillation. PLAN: 1. Continue current medications. 2. Heart healthy diet. 3. Monitor heart rate and rhythm. 4. DVT prophylaxis - he is on Eliquis. 5. Decubitus precautions. 6. Stress ulcer prophylaxis. 7. Wound care. 8. Arrange for Surgical consult. 9. Discussed with the patient in detail. All questions answered. Job ID: [id number]
[2020-06-19] MEDS: Vancomycin HCl 500 MG in Sodium Chloride 0.9% 100 ML IVPB SCH (15:25)
[2020-06-19] MEDS: Vancomycin HCl 750 MG in Sodium Chloride 0.9% 250 ML 250 ML IVPB SCH (15:25)
[2020-06-19] MEDS: Atorvastatin Calcium 40 MG TAB PO SCH (21:15)
[2020-06-19] MEDS: Amlodipine 5 MG TAB PO SCH (21:17)
[2020-06-20] MEDS: metroNIDAZOLE 500 MG in Premix Bag 1 BAG IVPB SCH ×3 (05:52→21:09)
[2020-06-20] MEDS: Apixaban 5 MG TAB PO SCH ×2 (08:55→21:08)
[2020-06-20] MEDS: Ferrous Sulfate 325 MG TAB PO SCH (08:55)
[2020-06-20] MEDS: Dronedarone HCl 400 MG TAB PO SCH ×2 (08:55→17:28)
[2020-06-20] MEDS: Ascorbic Acid 500 mg Chewable Tablet PO SCH (08:56)
[2020-06-20] MEDS: Clopidogrel Bisulfate 75 MG TAB PO SCH (08:56)
[2020-06-20] MEDS: Famotidine 20 MG TAB PO SCH ×2 (08:56→21:08)
[2020-06-20] MEDS: LIDOCAINE 5% OINTMENT TOP SCH ×4 (08:56→21:05)
[2020-06-20] MEDS: Gabapentin 300 MG CAP PO SCH ×3 (08:56→21:09)
[2020-06-20] MEDS: Fish Oil 1,000 MG CAP PO SCH (08:56)
[2020-06-20] MEDS: Saccharomyces boulardii 250 MG CAP PO SCH (08:57)
[2020-06-20] MEDS: Stress 600 With Zinc 1 TAB PO SCH (08:58)
[2020-06-20] MEDS: Vit A,C & E/Lutein/Minerals Tablet PO SCH (08:58)
[2020-06-20] MEDS: Cefepime 2 GM in Sodium Chloride 0.9% 100 ML IVPB SCH ×2 (10:06→21:08)
--- NOTE | 2020-06-20 13:13 | PRG ---
DATE OF SERVICE: 06/20/2020 SUBJECTIVE: Mr. Lauren is up in his chair. He states he is depressed about his left heel wound. Apparently, none of the surgeons work on the healed. So we are going to schedule him an appointment with his wound care MD, Dr. Chase. He is worried that he may lose his feet. I advised him that is a possibility, but we are going to try to do everything we can to save it. OBJECTIVE: VITAL SIGNS: He is afebrile, heart rate 67, respirations 20, oxygen saturation 95% on room air, blood pressure 131/63. CARDIOVASCULAR: S1, S2 plus. RESPIRATORY: Normal vesicular breath sounds. ABDOMEN: Soft, nontender. Bowel sounds heard in all quadrants. EXTREMITIES: Without cyanosis or clubbing. Left heel with dressing and in a surgical boot. CENTRAL NERVOUS SYSTEM: Generalized weakness. IMPRESSION: 1. Left heel osteomyelitis. 2. Peripheral vascular disease status post PTCA stent to left posterior tibial. 3. Benign prostatic hypertrophy. 4. Fanconi syndrome. 5. Osteoarthritis. 6. Atrial fibrillation. 7. Hypertension. 8. Dyslipidemia. PLAN: 1. Continue current medications. 2. Heart healthy diet. 3. Monitor heart rate and rhythm. 4. Monitor blood pressure. 5. Wound care. 6. Continue IV antibiotics. 7. Wound Care consult. 8. Recheck labs in the morning. 9. Continue therapy. Job ID: [id number]
[2020-06-20] MEDS: Vancomycin HCl 750 MG in Sodium Chloride 0.9% 250 ML 250 ML IVPB SCH (15:16)
[2020-06-20] MEDS: Vancomycin HCl 500 MG in Sodium Chloride 0.9% 100 ML IVPB SCH (15:17)
--- OUTSIDE RECORDS SUMMARY | 2020-06-20 15:57 | XMS | Patient Health Record ---
:1935 Author Organization [facility] Address [address] [place] [address] Care Team Providers Name Role Phone Greg Tai Unavailable [phone] Lauren Bosch Unavailable [phone] Annette Odell Unavailable [phone] Adam Shirley Unavailable [phone] Salbador Nixon Unavailable [phone] Mark Anthony Burnett Unavailable [phone] Eloina Villareal Unavailable [phone] Adriana Mahmood Unavailable [phone] PROBLEMS Type Condition ICD9-CM ATA92-CE Onset Condition SNOMED Code Notes Code Code Dates Status Problem Neuropathy G62.9 Active 367565696 Problem Hyperlipidemia, E78.5 Active 87328155 unspecified Problem Lumbago M54.5 Active 496109027 Problem DJD (degenerative M19.90 Active 948031738 joint disease) Problem *Abdominal aortic I71.4 Active 61041782 aneurysm without rupture Problem Other half-way Z79.899 Active 196951684 (current) drug therapy Problem Hypertensive I11.9 Active 95922421 heart disease without heart failure Problem Lumbago with M54.42 Active 681025409 sciatica, left side Problem Gastro-esophageal K21.9 Active 822034131 reflux disease without esophagitis Problem Venous I87.2 Active 00956133 insufficiency Problem Spinal stenosis M48.06 Active 94969002 of lumbar region Problem Occlusion and I65.29 Active 63865733 stenosis of unspecified carotid artery Problem Carpal tunnel G56.00 Active 35752494 syndrome Problem Fanconi's E72.09 Active 30519412 syndrome Problem Other chronic G89.29 Active 51261490 pain ALLERGIES Allergen (clinical drug Drug/Non Drug Allergy Reaction Allergy Type Onset Date Status ingredient) documented on EMR oxycodone Oxycodone HCl([facility] anger Drug Allergy Activ e Code:[address]-97) ENCOUNTERS from 1935 to 2020-06-20 Encounter Location Date Provider Diagnosis [place] [address] [address] [facility] Jun, Greg Pachecoyady [facility] Internal [place], [place] Medicine - Primary [id number] Care [facility] [place] No Information SOCIAL HISTORY Tobacco Use: Social History Observation Description Date Details (start date - stop date) Former Smoker Sex Assigned At : Social History Observation Description Sex Assigned At Unknown Smoking Question Answer Notes Are you a: former smoker REASON FOR REFERRAL from 1935 to 2020-06-20 Reason CCM Referring Provider First Name Greg Referring Provider Last Name Abida Referring Provider Specialty Internal Medicine Referring Provider email [email or web address] Referred Provider [facility], Medical Records VITAL SIGNS from 1935 to 2020-06-20 Weight Wheelchair lbs Apr, Height 75 in Apr, BMI 33.74 kg/m2 Feb, Heart Rate 86 /min Apr, Temperature 99.6 degrees Fahrenheit Apr, Oximetry 96 % Apr, Blood pressure systolic 109 mm Hg Apr, Blood pressure diastolic 62 mm Hg Apr, MEDICATIONS Medication SIG (Take, Route, Start Date End Date Status Frequency, Duration) Aspir-81 81 MG 1 tablet Orally Once a day Unknown Dexamethasone 2 MG 2 tabs q6hrs x2days, 1.5 January, Unknown tabs q6hrs x2days, 1 tab q6hrs x2days, then 0.5 tab q6hrs x2days Orally every 6 hours for 8 days Pantoprazole Sodium 40 MG 1 tablet Orally Once a day January, Unknown for 8 days Potassium Chloride Stephie ER 20 1 tablet with food Orally Apr, 0 Active MEQ Once a day for 15 days Bactrim DS 800-160 MG 1 tablet Orally Twice a 15 May, 2020 Active day for 10 day(s) Tramadol HCl 50 MG 1-2 tablet as needed for January, Unknown pain Orally every 6 hours for 5 days Lisinopril-Hydrochlorothiazid 1 tablet Orally Once a day Unknown e 20-25 MG for 90 days Lasix 40 MG 1 tablet Orally Once a day Apr, A ctive for 14 days Norvasc 10 mg 1/2 tablet Orally Once a Un known day for 45 Tizanidine HCl 4 MG 1 tablet as needed Orally January, Unknown Three times a day for 10 days PROCEDURES No Information RESULTS No Results REASON FOR VISIT 3 MO F/U, Pt admitted to [facility], , Needs call back from office, Needs call back from office, [facility]-Completed MRI @ [facility], Power wheelchair, Wound on heel, Wheelchair, orders for wound care needed tanesha, Needs info faxed, edema, patient care, Telemed / phone consultation due to Covid-19 pandemic , I never got that right elg strength back, but it doesnt hurt much any more, Speak w/doctor, Dr Jesus cho clinic note, Last sx was 6-4-20, Charges for 6-4-20 SX?, [facility]-Please call, Patient going home today, update on patient, severe pain, staple removal, Suture removal , ER, severe pain, [facility]-please call, postop radiculitis, SX CK, rec home/OP PT, Post OP Medications, Re-do lami L2-4, Re-do lami L2-4, Addon lab test, Surgery Question, instrument engineer, Renee/KAYLI & [facility] Plan F/MRI L spine w/wo @ EXECUTIVE PERSONAL ASSISTANT, Dano & [facility] Plan F/MRI L spine w/wo @ EXECUTIVE PERSONAL ASSISTANT, cx appt. , 3 wed. f/u, LAB-PPS, 3 wed. f/u, pps, appt , Tito/KAYLI, AARP/lower back pain/ MEDICAL (GENERAL) HISTORY Type Description Date Medical History Other terminal computer operator (current) drug therapy Medical History Spinal stenosis of lumbar region Medical History Lumbago Medical History Neuropathy Medical History Carpal tunnel syndrome Medical History Abdominal aortic aneurysm without ruptur e Medical History Gastro-esophageal reflux disease without esophagitis Medical History Fanconi's syndrome Medical History Occlusion and stenosis of unspecified ca rotid artery Medical History DJD (degenerative joint disease) Medical History Hyperlipidemia Medical History Hypertensive heart disease without heart failure Surgical History Back Surgery x2 L4 and L5 Surgical History Knee Arthroscopy,Right Surgical History Cystoscopies for renal calculus Surgical History CTR,Bilateral , 05/2010 Surgical History Ulnar Nerve Transposition,Bilatral ,Dr.S gonzales 04/2010 Hospitalization History Surgery Related Goals Section No Information Health Concerns No Information MEDICAL EQUIPMENT No Information MENTAL STATUS No Information FUNCTIONAL STATUS No Information ASSESSMENTS Encounter Date Diagnosis Notes Apr, DJD (degenerative joint disease) (ICD-10 - M19.90) Apr, Hyperlipidemia, unspecified (ICD-10 - E7 8.5) Jul, Other terminal computer operator (current) drug therapy ( ICD-10 - Z79.899) Apr, DJD (degenerative joint disease) (ICD-10 - M19.90) Apr, Open wound of left heel, initial encount er (ICD-10 - S91.302A) Aug, Gastro-esophageal reflux disease without esophagitis (ICD-10 - K21.9) Aug, Fanconi's syndrome (ICD-10 - E72.09) Apr, Hypertensive heart disease without heart failure (ICD-10 - I11.9) Oct, Other chronic pain (ICD-10 - G89.29) Apr, Fanconi's syndrome (ICD-10 - E72.09) May, Occlusion and stenosis of unspecified ca rotid artery (ICD-10 - I65.29) Aug, Carpal tunnel syndrome (ICD-10 - G56.00) Apr, Lumbago (ICD-10 - M54.5) Apr, Occlusion and stenosis of unspecified ca rotid artery (ICD-10 - I65.29) May, Fanconi's syndrome (ICD-10 - E72.09) Apr, Venous insufficiency (ICD-10 - I87.2) Oct, Lumbago with sciatica, left side (ICD-10 - M54.42) May, Gastro-esophageal reflux disease without esophagitis (ICD-10 - K21.9) Jul, Hyperlipidemia, unspecified (ICD-10 - E7 8.5) Apr, Occlusion and stenosis of unspecified ca rotid artery (ICD-10 - I65.29) Feb, Lumbago with sciatica, left side (ICD-10 - M54.42) Apr, Spinal stenosis of lumbar region (ICD-10 - M48.06) Apr, Neuropathy (ICD-10 - G62.9) Apr, Gastro-esophageal reflux disease without esophagitis (ICD-10 - K21.9) Apr, Mobility impaired (ICD-10 - Z74.09) Apr, Gastro-esophageal reflux disease without esophagitis (ICD-10 - K21.9) May, DJD (degenerative joint disease) (ICD-10 - M19.90) Aug, Hyperlipidemia, unspecified (ICD-10 - E7 8.5) Apr, Neuropathy (ICD-10 - G62.9) Apr, *Abdominal aortic aneurysm without ruptu re (ICD-10 - I71.4) Aug, Occlusion and stenosis of unspecified ca rotid artery (ICD-10 - I65.29) May, Hyperlipidemia, unspecified (ICD-10 - E7 8.5) Apr, Hypertensive heart disease without heart failure (ICD-10 - I11.9) Apr, Carpal tunnel syndrome (ICD-10 - G56.00) May, Hypertensive heart disease without heart failure (ICD-10 - I11.9) Aug, DJD (degenerative joint disease) (ICD-10 - M19.90) Apr, Fanconi's syndrome (ICD-10 - E72.09) Apr, Other terminal computer operator (current) drug therapy ( ICD-10 - Z79.899) Aug, Hypertensive heart disease without heart failure (ICD-10 - I11.9) Feb, Other chronic pain (ICD-10 - G89.29) Apr, Hyperlipidemia, unspecified (ICD-10 - E7 8.5) May, Carpal tunnel syndrome (ICD-10 - G56.00) Apr, Spinal stenosis of lumbar region (ICD-10 - M48.06) Apr, Neuropathy (ICD-10 - G62.9) PLAN OF TREATMENT Medication Medication Name Sig Start Date Stop Date Bactrim DS 800-160 MG 1 tablet Orally Twice a day May, for 10 day(s) Lasix 40 MG 1 tablet Orally Once a day Apr, for 14 days Potassium Chloride Stephie ER 20 MEQ 1 tablet with food Orally 12 A 2019 Once a day for 15 days Treatment Notes Assessment Notes Clinical Notes Hyperlipidemia, unspecified Discussed with patient about the importance of compliance with medications, low cholesterol diet, exercise and scheduled labs and specialist visits. Patient advised to call me with any side effects, questions or concerns. Open wound of left heel, initial saw images from , needs w ound care encounter referral and pressure relief with heel lift boot- informed Hypertensive heart disease without Discussed with patient ab out the heart failure importance of compliance with medications, low sodium diet, exercise and scheduled labs and specialist visits. Patient advised to call me with any side effects, questions or concerns. Lumbago with sciatica, left side Will require clearance from PCP for L2-3, L3-4 Laminectomy Venous insufficiency trial of compression stockings and check labs Spinal stenosis of lumbar region #1 Suspect spinal cord inf arct in rehab#2 Continue PT#3 Evenautally scan brain, spine again to assess if there is anything left to do, and to get a feel for etiology.#4 Coordinate trip out of house for scans with trip out of [place]os[place] to doctors office#5 call with results. Carpal tunnel syndrome Refer to Dr. Felix Lumbago with sciatica, left side Incision is clean and dry, there is no erythema, edema, or drainageIncision is well aligned. No external sutures, Over all healing well no sign of infection. Hypertensive heart disease without Discussed with patient ab out the heart failure importance of compliance with medications, low sodium diet, exercise and scheduled labs and specialist visits. Patient advised to call me with any side effects, questions or concerns. DJD (degenerative joint disease) stable, Tylenol prn Hyperlipidemia, unspecified Discussed with patient about the importance of compliance with medications, low cholesterol diet, exercise and scheduled labs and specialist visits. Patient advised to call me with any side effects, questions or concerns. Gastro-esophageal reflux disease Discussed with patient abou t the without esophagitis importance of compliance with medications, diet, lifestyle modifications and specialist visits. Patient advised to call me with any side effects, questions or concerns. DJD (degenerative joint disease) chronic Other chronic pain continue inpatiet rehab Occlusion and stenosis of stable unspecified carotid artery Fanconi's syndrome stable Referrals Referral Date Details Bilateral carpal tunnel synd mario alberto and right knee pain- pt known to you, Dusty Felix treat and evaluate, Isacc Nahum kellerkervinbrandy, [address] [address], [place], [address], Lumbar injections, B/CS [place] and Yony Zuniga 2020-05-23 2020-05-23, Mobility Evaluat ion for Power wheelchair, PT-[facility] left heel ulcer, Wound Care [facility] [place] - concern for thin c ord, T2 signal change in cord - infact? B12?, B/CS Maggie leyva CCM Next Appt Details Provider Name:Greg Tai, 2020-08-08 10:30:00 AM, [address] [place], [address], Insurance Providers Payer Name Payer Address Payer Insured Patient Coverage Cover age Phone Name Relationship to Start Date End Date Insured Medicare [address] ATTN [phone] Rakesh Farias Part B Claims [id number] [id number] [facility] [address] [phone] Rakesh Farias [facility] [id number] [phone]
[2020-06-20] MEDS: Atorvastatin Calcium 40 MG TAB PO SCH (21:08)
[2020-06-20] MEDS: Amlodipine 5 MG TAB PO SCH (21:08)
[2020-06-21] MEDS: metroNIDAZOLE 500 MG in Premix Bag 1 BAG IVPB SCH ×3 (05:29→21:21)
[2020-06-21 06:05] LABS: #Basophils 0.1 thou/uL (0.0-0.2); #Eosinphils 0.2 thou/uL (0.0-0.7); #Lymphocytes 1.7 thou/uL (1.20-3.40); #Monocytes 0.7 thou/uL (0.11-0.59); #Neutrophils 4.6 thou/uL (1.40-6.50); %Basophils 1.3 % (0.0-1.0); %Eosinophils 3.3 % (0.0-10.0); %Lymphocytes 23.5 % (21.0-51.0); %Monocytes 9.7 % (0.0-10.0); %Neutrophils 62.3 % (42.0-75.0); Hemoglobin 9.7 g/dL (14.0-18.0); Mean Corpuscular HGB CONC 30.8 g/dL (32.0-36.0); Mean Corpuscular Hemoglobin 29.2 pg (27.0-31.0); Platelet Count 196 thou/uL (130-400); RBC Distribution Width 17.6 % (11.5-14.5); Red Blood Cell (RBC) Count 3.31 mill/uL (4.70-6.10); White Blood Cell (WBC) Count 7.3 thou/uL (4.8-10.8)
[2020-06-21 06:20] LABS: ALT (SGPT) 15 U/L (8-55); AST (SGOT) 20 U/L (5-34); Albumin 2.6 g/dL (3.4-4.8); Alkaline Phosphatase 50 U/L (40-110); Anion Gap 12 mmol/L (10-20); BUN (Urea Nitrogen) 15 mg/dL (8.4-25.7); Bilirubin, Total 0.4 mg/dL (0.2-1.2); CRP (Inflammatory) 1.62 mg/dL (= or < 0.5); Calc. Creatinine Clearance 111 mL/min (70-130); Carbon Dioxide 24 mmol/L (23-31); Chloride 112 mmol/L (98-107); Estimated GFR-MDRD 79; Globulin 2.6 g/dL (2.4-3.5); Glucose 110 mg/dL (83-110); Potassium 3.8 mmol/L (3.5-5.1); Protein, Total 5.2 g/dL (5.8-8.1); Sodium 144 mmol/L (136-145)
[2020-06-21] MEDS: Stress 600 With Zinc 1 TAB PO SCH (09:12)
[2020-06-21] MEDS: Apixaban 5 MG TAB PO SCH ×2 (09:13→21:22)
[2020-06-21] MEDS: Fish Oil 1,000 MG CAP PO SCH (09:13)
[2020-06-21] MEDS: Ascorbic Acid 500 mg Chewable Tablet PO SCH (09:13)
[2020-06-21] MEDS: Famotidine 20 MG TAB PO SCH ×2 (09:13→21:21)
[2020-06-21] MEDS: Saccharomyces boulardii 250 MG CAP PO SCH (09:13)
[2020-06-21] MEDS: Ferrous Sulfate 325 MG TAB PO SCH (09:14)
[2020-06-21] MEDS: Vit A,C & E/Lutein/Minerals Tablet PO SCH (09:14)
[2020-06-21] MEDS: Clopidogrel Bisulfate 75 MG TAB PO SCH (09:14)
[2020-06-21] MEDS: Gabapentin 300 MG CAP PO SCH ×3 (09:15→21:22)
[2020-06-21] MEDS: LIDOCAINE 5% OINTMENT TOP SCH ×4 (09:15→21:22)
[2020-06-21] MEDS: Dronedarone HCl 400 MG TAB PO SCH ×2 (09:16→17:17)
[2020-06-21] MEDS: Cefepime 2 GM in Sodium Chloride 0.9% 100 ML IVPB SCH ×2 (09:18→21:21)
--- NOTE | 2020-06-21 09:42 | PRG ---
DATE OF SERVICE: 06/21/2020 SUBJECTIVE: Mr. Lauren is doing well. Denies any complaints. Discussed with wound care and we are going to start applying Santyl. I also have contacted Dr. Chase [facility] to see if she can see him and evaluate and see if the patient needs any further sharp debridement. No fever. No redness. Drainage is clear from the wound per wound care and his foot remains warm. OBJECTIVE: VITAL SIGNS: He is afebrile. Heart rate 67, respirations 20, oxygen saturation 95% on room air, and blood pressure 131/63. CARDIOVASCULAR SYSTEM: S1 and S2 plus. RESPIRATORY SYSTEM: Normal vesicular breath sounds. ABDOMEN: Soft, nontender. Bowel sounds heard in all quadrants. EXTREMITIES: Without cyanosis or clubbing. Left heel with dressing. As stated, left foot and toes are warm to touch, so I still think that the recent balloon angioplasty and stent placement to the left posterior tibial artery are remaining patent. IMPRESSION: 1. Left heel osteomyelitis. 2. Peripheral vascular disease, status post intervention to left posterior tibial. 3. BPH. 4. Hypertension. 5. Dyslipidemia. 6. Osteoarthritis. 7. Fanconi syndrome. 8. Atrial fibrillation. 9. Lumbar radiculopathy. 10. Peripheral neuropathy. PLAN: 1. Continue current medications including IV antibiotics. 2. Heart-healthy diet. 3. Wound care. 4. DVT prophylaxis-the patient is on Eliquis. 5. Decubitus precautions. 6. Stress ulcer prophylaxis. 7. Wound care. 8. Await response from Dr. Chase. 9. Continue current therapy. Job ID: [id number]
[2020-06-21] MEDS: Vancomycin HCl 750 MG in Sodium Chloride 0.9% 250 ML 250 ML IVPB SCH (16:05)
[2020-06-21] MEDS: Vancomycin HCl 500 MG in Sodium Chloride 0.9% 100 ML IVPB SCH (17:18)
[2020-06-21] MEDS: Atorvastatin Calcium 40 MG TAB PO SCH (21:21)
[2020-06-21] MEDS: Amlodipine 5 MG TAB PO SCH (21:22)
[2020-06-22] MEDS: metroNIDAZOLE 500 MG in Premix Bag 1 BAG IVPB SCH ×3 (06:03→20:53)
[2020-06-22] MEDS: Ascorbic Acid 500 mg Chewable Tablet PO SCH (09:03)
[2020-06-22] MEDS: Fish Oil 1,000 MG CAP PO SCH (09:04)
[2020-06-22] MEDS: Clopidogrel Bisulfate 75 MG TAB PO SCH (09:04)
[2020-06-22] MEDS: Gabapentin 300 MG CAP PO SCH ×3 (09:04→20:52)
[2020-06-22] MEDS: Apixaban 5 MG TAB PO SCH ×2 (09:04→20:52)
[2020-06-22] MEDS: Famotidine 20 MG TAB PO SCH ×2 (09:04→20:52)
[2020-06-22] MEDS: Saccharomyces boulardii 250 MG CAP PO SCH (09:04)
[2020-06-22] MEDS: Stress 600 With Zinc 1 TAB PO SCH (09:04)
[2020-06-22] MEDS: Dronedarone HCl 400 MG TAB PO SCH ×2 (09:05→16:01)
[2020-06-22] MEDS: Vit A,C & E/Lutein/Minerals Tablet PO SCH (09:05)
[2020-06-22] MEDS: Cefepime 2 GM in Sodium Chloride 0.9% 100 ML IVPB SCH ×2 (09:05→20:53)
[2020-06-22] MEDS: Ferrous Sulfate 325 MG TAB PO SCH (09:05)
[2020-06-22] MEDS: LIDOCAINE 5% OINTMENT TOP SCH ×4 (09:07→20:54)
[2020-06-22] MEDS: Collagenase 250 UNITS/GM Ointment 30 GM TUBE TOP SCH (09:08)
[2020-06-22 15:45] LABS: Vancomycin, Trough 13.3 ug/mL
[2020-06-22] MEDS: Vancomycin HCl 500 MG in Sodium Chloride 0.9% 100 ML IVPB SCH (16:01)
[2020-06-22] MEDS: Vancomycin HCl 750 MG in Sodium Chloride 0.9% 250 ML 250 ML IVPB SCH (16:01)
--- NOTE | 2020-06-22 16:10 | PRG ---
DATE OF SERVICE: 06/22/2020 SUBJECTIVE: Mr. Lauren is doing the same. He is up in bed. Denies any complaints. No fever or chills. No increasing pain. Santyl was started yesterday for enzymatic debridement. Dr. Chase got back to me on [employer] and said she is going to work him in and will let me know of the date. OBJECTIVE: VITAL SIGNS: He is afebrile, heart rate 66, respirations 20, oxygen saturation 93% on room air, blood pressure 132/71. CARDIOVASCULAR SYSTEM: S1 and S2 plus. RESPIRATORY SYSTEM: Normal vesicular breath sounds. ABDOMEN: Soft, nontender. Bowel sounds heard in all quadrants. EXTREMITIES: Without cyanosis, clubbing. CENTRAL NERVOUS SYSTEM: Generalized weakness. IMPRESSION: 1. Left heel osteomyelitis. 2. Peripheral vascular disease, status post percutaneous transluminal coronary angioplasty and stent placement to posterior tibial artery. 3. Hypertension. 4. Dyslipidemia. 5. BPH. 6. Osteoarthritis. 7. Fanconi syndrome. 8. Peripheral neuropathy. 9. Lumbar radiculopathy. 10. Anxiety and depression. PLAN: 1. Increase Zoloft to 100 mg daily. 2. Heart-healthy diet. 3. Continue IV antibiotics. 4. DVT prophylaxis - he is on Eliquis for atrial fibrillation. 5. Decubitus precautions. 6. Stress ulcer prophylaxis. 7. Wound care. 8. Therapy. 9. Await appointment with Dr. Chase for possible wound debridement. Job ID: [id number]
[2020-06-22] MEDS: Amlodipine 5 MG TAB PO SCH (20:52)
[2020-06-22] MEDS: Atorvastatin Calcium 40 MG TAB PO SCH (20:52)
[2020-06-23] MEDS: metroNIDAZOLE 500 MG in Premix Bag 1 BAG IVPB SCH ×3 (05:54→21:17)
[2020-06-23] MEDS: Cefepime 2 GM in Sodium Chloride 0.9% 100 ML IVPB SCH ×2 (08:47→21:16)
[2020-06-23] MEDS: Saccharomyces boulardii 250 MG CAP PO SCH (08:48)
[2020-06-23] MEDS: Vit A,C & E/Lutein/Minerals Tablet PO SCH (08:48)
[2020-06-23] MEDS: Stress 600 With Zinc 1 TAB PO SCH (08:48)
[2020-06-23] MEDS: Fish Oil 1,000 MG CAP PO SCH (08:48)
[2020-06-23] MEDS: Ascorbic Acid 500 mg Chewable Tablet PO SCH (08:48)
[2020-06-23] MEDS: Apixaban 5 MG TAB PO SCH ×2 (08:49→21:15)
[2020-06-23] MEDS: Famotidine 20 MG TAB PO SCH ×2 (08:49→21:15)
[2020-06-23] MEDS: Dronedarone HCl 400 MG TAB PO SCH ×2 (08:49→17:32)
[2020-06-23] MEDS: LIDOCAINE 5% OINTMENT TOP SCH ×4 (08:49→21:16)
[2020-06-23] MEDS: Gabapentin 300 MG CAP PO SCH ×3 (08:49→21:15)
[2020-06-23] MEDS: Clopidogrel Bisulfate 75 MG TAB PO SCH (08:49)
[2020-06-23] MEDS: Ferrous Sulfate 325 MG TAB PO SCH (08:49)
[2020-06-23] MEDS: Collagenase 250 UNITS/GM Ointment 30 GM TUBE TOP SCH (08:50)
[2020-06-23] MEDS ORDERED: Collagenase 250 UNITS/GM Ointment 30 GM TUBE TOP SCH (09:00)
[2020-06-23] MEDS: Vancomycin HCl 500 MG in Sodium Chloride 0.9% 100 ML IVPB SCH (14:26)
[2020-06-23] MEDS: Vancomycin HCl 750 MG in Sodium Chloride 0.9% 250 ML 250 ML IVPB SCH (14:26)
--- NOTE | 2020-06-23 16:39 | PRG ---
DATE OF SERVICE: 06/23/2020 SUBJECTIVE: Mr. Lauren is up in bed. He states that he is noticing some dry eyes and would like something for it. He apparently was sleepy today and I advised him that I did increase his sertraline yesterday and that may be the reason. His spouse is in the room. All questions answered. Waiting for appointment with wound care physician. OBJECTIVE: VITAL SIGNS: He is afebrile heart rate 70, respirations 20, oxygen saturation 96% on room air, and blood pressure 122/69. CARDIOVASCULAR SYSTEM: S1 and S2 plus. RESPIRATORY SYSTEM: Normal vesicular breath sounds. ABDOMEN: Soft and nontender. Bowel sounds heard in all quadrants. EXTREMITIES: Without cyanosis or clubbing. Left heel and foot with dressing. CENTRAL NERVOUS SYSTEM: Generalized weakness. Peripheral neuropathy. Otherwise, nonfocal. IMPRESSION: 1. Left heel osteomyelitis. 2. Benign prostatic hypertrophy. 3. Depression. 4. Hypertension. 5. Dyslipidemia. 6. Fanconi syndrome. 7. Osteoarthritis. 8. Peripheral neuropathy. 9. Lumbar spine radiculopathy. PLAN: 1. Continue current medications. 2. Add Refresh or Systane to eyes. 3. Wound care. 4. Continue IV antibiotics. 5. Weekly CBC, CRP, CMP, and sedimentation rate. 6. Await appointment with wound care MD for possible debridement. 7. Continue therapy. 8. DVT prophylaxis - he is on Eliquis for atrial fibrillation. 9. Decubitus precautions. 10. Stress ulcer prophylaxis. Job ID: [id number]
[2020-06-23] MEDS: Atorvastatin Calcium 40 MG TAB PO SCH (21:15)
[2020-06-23] MEDS: Amlodipine 5 MG TAB PO SCH (21:15)
[2020-06-23] MEDS: Polyethylene Glycol OPTH DROP 15 ML BOT EA EYE SCH (21:16)
[2020-06-24] MEDS: metroNIDAZOLE 500 MG in Premix Bag 1 BAG IVPB SCH ×3 (05:35→21:32)
[2020-06-24] MEDS: Dronedarone HCl 400 MG TAB PO SCH ×2 (08:59→17:53)
[2020-06-24] MEDS: Ascorbic Acid 500 mg Chewable Tablet PO SCH (08:59)
[2020-06-24] MEDS: Apixaban 5 MG TAB PO SCH ×2 (08:59→21:30)
[2020-06-24] MEDS: Ferrous Sulfate 325 MG TAB PO SCH (08:59)
[2020-06-24] MEDS: Clopidogrel Bisulfate 75 MG TAB PO SCH (09:00)
[2020-06-24] MEDS: Polyethylene Glycol OPTH DROP 15 ML BOT EA EYE SCH ×2 (09:00→21:29)
[2020-06-24] MEDS: Gabapentin 300 MG CAP PO SCH ×3 (09:00→21:30)
[2020-06-24] MEDS: LIDOCAINE 5% OINTMENT TOP SCH ×4 (09:00→23:21)
[2020-06-24] MEDS: Famotidine 20 MG TAB PO SCH ×2 (09:00→21:32)
[2020-06-24] MEDS: Fish Oil 1,000 MG CAP PO SCH (09:00)
[2020-06-24] MEDS: Saccharomyces boulardii 250 MG CAP PO SCH (09:01)
[2020-06-24] MEDS: Vit A,C & E/Lutein/Minerals Tablet PO SCH (09:02)
[2020-06-24] MEDS: Stress 600 With Zinc 1 TAB PO SCH (09:02)
[2020-06-24] MEDS: Collagenase 250 UNITS/GM Ointment 30 GM TUBE TOP SCH (09:02)
[2020-06-24] MEDS: Cefepime 2 GM in Sodium Chloride 0.9% 100 ML IVPB SCH ×2 (11:13→21:31)
[2020-06-24] MEDS: Sucralfate 1 GM TAB PO SCH ×2 (13:19→21:30)
--- NOTE | 2020-06-24 13:47 | PRG ---
DATE OF SERVICE: 06/24/2020 SUBJECTIVE: Mr. Lauren is complaining of some abdominal bloating. He does have history of significant GERD and he did well on Carafate the last time. We will start him on Carafate b.i.d., still awaiting to hear back from the [facility] about evaluation for possible debridement. OBJECTIVE: VITAL SIGNS: He is afebrile. Heart rate 75, respirations 20, oxygen saturation 95% on room air, blood pressure 149/72. CARDIOVASCULAR: S1 and S2 plus. RESPIRATORY: Normal vesicular breath sounds. ABDOMEN: Soft, nontender. Bowel sounds heard in all quadrants. EXTREMITIES: Without cyanosis or clubbing. CENTRAL NERVOUS SYSTEM: Peripheral neuropathy and generalized weakness, otherwise nonfocal. IMPRESSION: 1. Left heel osteomyelitis. 2. Peripheral vascular disease, status post PTCA stent to the left posterior tibial artery. 3. Atrial fibrillation. 4. Hypertension. 5. Dyslipidemia. 6. Osteoarthritis. 7. Fanconi syndrome. 8. Peripheral neuropathy. 9. Depression. 10. Lumbar radiculopathy, status post recent decompression. 11. BPH. PLAN: 1. Continue current medications. 2. Heart healthy diet. 3. Monitor heart rate and rhythm. 4. Monitor blood pressure and adjust medications. 5. Wound care. 6. Continue IV antibiotics. 7. Weekly CBC, CMP, CRP, and sedimentation rate. 8. Await appointment with [facility] for a possible debridement. 9. Therapy as tolerated. 10. Add Carafate 1 g p.o. b.i.d. 11. Routine laboratory values. 12. Discussed with the patient in detail. All questions answered. Job ID: [id number]
[2020-06-24 14:24] LABS: Vancomycin, Trough 12.2 ug/mL
[2020-06-24] MEDS: Vancomycin HCl 1 GM in Sodium Chloride 0.9% 250 ML 250 ML IVPB SCH (15:59)
[2020-06-24] MEDS: Vancomycin HCl 750 MG in Sodium Chloride 0.9% 250 ML 250 ML IVPB SCH (16:00)
[2020-06-24] MEDS: Atorvastatin Calcium 40 MG TAB PO SCH (21:30)
[2020-06-24] MEDS: Amlodipine 5 MG TAB PO SCH (21:30)
[2020-06-25] MEDS: metroNIDAZOLE 500 MG in Premix Bag 1 BAG IVPB SCH ×3 (05:12→21:46)
[2020-06-25] MEDS: Dronedarone HCl 400 MG TAB PO SCH ×3 (09:25→16:48)
[2020-06-25] MEDS: Ferrous Sulfate 325 MG TAB PO SCH ×2 (09:25→10:35)
[2020-06-25] MEDS: Sucralfate 1 GM TAB PO SCH ×4 (09:25→21:47)
[2020-06-25] MEDS: Apixaban 5 MG TAB PO SCH ×3 (10:02→21:47)
[2020-06-25] MEDS: Ascorbic Acid 500 mg Chewable Tablet PO SCH ×2 (10:02→10:40)
[2020-06-25] MEDS: Clopidogrel Bisulfate 75 MG TAB PO SCH ×2 (10:02→10:36)
[2020-06-25] MEDS: Famotidine 20 MG TAB PO SCH ×3 (10:03→21:46)
[2020-06-25] MEDS: Fish Oil 1,000 MG CAP PO SCH ×2 (10:03→10:36)
[2020-06-25] MEDS: Collagenase 250 UNITS/GM Ointment 30 GM TUBE TOP SCH (10:04)
[2020-06-25] MEDS: Saccharomyces boulardii 250 MG CAP PO SCH ×2 (10:04→10:41)
[2020-06-25] MEDS: LIDOCAINE 5% OINTMENT TOP SCH ×4 (10:04→21:47)
[2020-06-25] MEDS: Polyethylene Glycol OPTH DROP 15 ML BOT EA EYE SCH ×3 (10:04→21:46)
[2020-06-25] MEDS: Gabapentin 300 MG CAP PO SCH ×4 (10:04→21:46)
[2020-06-25] MEDS: Stress 600 With Zinc 1 TAB PO SCH ×2 (10:04→10:05)
[2020-06-25] MEDS: Vit A,C & E/Lutein/Minerals Tablet PO SCH ×2 (10:05→10:36)
[2020-06-25] MEDS: Cefepime 2 GM in Sodium Chloride 0.9% 100 ML IVPB SCH ×2 (10:34→21:45)
--- NOTE | 2020-06-25 14:18 | PRG ---
DATE OF SERVICE: 06/25/2020 SUBJECTIVE: Mr. Lauren was seen by the [facility] today come back with orders for wound VAC and to have pressure relief boots at all times. Therapy is going to place the wound VAC on. They also order for some stool culture because he was having diarrhea, but nursing states that he has not had any diarrhea, and apparently, his was mistaken. I advised nursing to monitor for diarrhea, and if he has any loose stools, then to send it out for culture. OBJECTIVE: VITAL SIGNS: He is afebrile. Heart rate 87, respirations 22, oxygen saturation 94% on room air, blood pressure 161/84. CARDIOVASCULAR: S1 and S2 plus. RESPIRATORY: Normal vesicular breath sounds. ABDOMEN: Soft, nontender. Bowel sounds heard in all quadrants. EXTREMITIES: Without cyanosis or clubbing. Trace edema to right arm, but no evidence suggestive of DVT. IMPRESSION: 1. Left heel osteomyelitis. 2. Peripheral vascular disease, status post percutaneous transluminal coronary angioplasty and stent placement to the left posterior tibia. 3. Depression. 4. Peripheral neuropathy. 5. Hypertension. 6. Dyslipidemia. 7. Fanconi syndrome. 8. Osteoarthritis. 9. BPH. 10. Atrial fibrillation. PLAN: 1. Continue current medications. 2. Heart healthy diet. 3. Monitor heart rate and rhythm. 4. Wound VAC. 5. Continue antibiotics. 6. Probiotic. 7. Monitor for diarrhea. 8. DVT prophylaxis - he is on Eliquis. 9. Decubitus precautions. 10. Stress ulcer prophylaxis. 11. Recheck laboratory values tomorrow. Job ID: [id number]
[2020-06-25] MEDS: Vancomycin HCl 1 GM in Sodium Chloride 0.9% 250 ML 250 ML IVPB SCH (14:20)
[2020-06-25] MEDS: Vancomycin HCl 750 MG in Sodium Chloride 0.9% 250 ML 250 ML IVPB SCH (16:47)
[2020-06-25] MEDS: Atorvastatin Calcium 40 MG TAB PO SCH (21:46)
[2020-06-25] MEDS: Amlodipine 5 MG TAB PO SCH (21:46)
[2020-06-26] MEDS: metroNIDAZOLE 500 MG in Premix Bag 1 BAG IVPB SCH ×3 (05:40→21:08)
[2020-06-26 05:59] LABS: #Basophils 0.1 thou/uL (0.0-0.2); #Eosinphils 0.3 thou/uL (0.0-0.7); #Lymphocytes 1.4 thou/uL (1.20-3.40); #Monocytes 0.6 thou/uL (0.11-0.59); #Neutrophils 4.7 thou/uL (1.40-6.50); %Eosinophils 4.5 % (0.0-10.0); %Lymphocytes 19.4 % (21.0-51.0); %Monocytes 8.9 % (0.0-10.0); %Neutrophils 66.2 % (42.0-75.0); Hemoglobin 10.2 g/dL (14.0-18.0); Hypochromia SLIGHT = 6-15 cells (100X) (0-5/hpf); MDiff Complete? YES; Mean Corpuscular HGB CONC 30.4 g/dL (32.0-36.0); Mean Corpuscular Hemoglobin 29.4 pg (27.0-31.0); Mean Corpuscular Volume 96.9 fL (78.0-98.0); Mean Platelet Volume 7.3 fL (7.4-10.4); Platelet Count 179 thou/uL (130-400); Platelet Morphology Comment Appears Adequate; RBC Distribution Width 18.6 % (11.5-14.5); Red Blood Cell (RBC) Count 3.47 mill/uL (4.70-6.10)
[2020-06-26 06:03] LABS: Anion Gap 13 mmol/L (10-20); BUN (Urea Nitrogen) 14 mg/dL (8.4-25.7); Calc. Creatinine Clearance 135 mL/min (70-130); Calcium 8.3 mg/dL (7.8-10.44); Carbon Dioxide 20 mmol/L (23-31); Chloride 111 mmol/L (98-107); Estimated GFR-MDRD Greater than 90; Glucose 105 mg/dL (83-110); Sodium 140 mmol/L (136-145)
[2020-06-26] MEDS: Ascorbic Acid 500 mg Chewable Tablet PO SCH (08:35)
[2020-06-26] MEDS: Stress 600 With Zinc 1 TAB PO SCH (08:35)
[2020-06-26] MEDS: Saccharomyces boulardii 250 MG CAP PO SCH (08:35)
[2020-06-26] MEDS: Vit A,C & E/Lutein/Minerals Tablet PO SCH (08:35)
[2020-06-26] MEDS: Clopidogrel Bisulfate 75 MG TAB PO SCH (08:35)
[2020-06-26] MEDS: Dronedarone HCl 400 MG TAB PO SCH ×2 (08:36→17:25)
[2020-06-26] MEDS: Famotidine 20 MG TAB PO SCH ×2 (08:36→21:09)
[2020-06-26] MEDS: Apixaban 5 MG TAB PO SCH ×2 (08:36→21:09)
[2020-06-26] MEDS: Ferrous Sulfate 325 MG TAB PO SCH (08:36)
[2020-06-26] MEDS: Sucralfate 1 GM TAB PO SCH ×4 (08:36→21:08)
[2020-06-26] MEDS: Gabapentin 300 MG CAP PO SCH ×3 (08:36→21:09)
[2020-06-26] MEDS: Fish Oil 1,000 MG CAP PO SCH (08:36)
[2020-06-26] MEDS: Polyethylene Glycol OPTH DROP 15 ML BOT EA EYE SCH ×2 (08:37→21:08)
[2020-06-26] MEDS: LIDOCAINE 5% OINTMENT TOP SCH ×4 (08:37→21:09)
[2020-06-26] MEDS: Collagenase 250 UNITS/GM Ointment 30 GM TUBE TOP SCH (08:37)
--- NOTE | 2020-06-26 12:50 | PRG ---
DATE OF SERVICE: 06/26/2020 SUBJECTIVE: Mr. Lauren is resting in bed. He denies any complaints except he is still having on and off abdominal cramping, but it is much improved. He is also sounding a little wheezy and he is not compliant with his incentive spirometry. I did advise nursing that chest x-ray done and then to have him do incentive spirometry q.1 hour. I am also going to reduce his sertraline back to 50 mg as that may be causing some somnolence and some GI upset. OBJECTIVE: VITAL SIGNS: He is afebrile, heart rate 78, respirations 20, oxygen saturation 96% on room air, blood pressure 144/66. CARDIOVASCULAR SYSTEM: S1 and S2 plus. RESPIRATORY SYSTEM: Normal vesicular breath sounds. ABDOMEN: Soft, obese, nontender. Bowel sounds heard in all quadrants. EXTREMITIES: Without cyanosis, clubbing. Left heel now has a wound VAC. CENTRAL NERVOUS SYSTEM: Generalized weakness. LABORATORY VALUES: White count is 7, H and H are 10.2 and 33.6. Sodium 140, potassium 4.4, BUN and creatinine are 14 and 0.8. IMPRESSION: 1. Left heel osteomyelitis. 2. Peripheral vascular disease, status post percutaneous transluminal coronary angioplasty and stent to left posterior tibial. 3. Hypertension. 4. Dyslipidemia. 5. Osteoarthritis. 6. Fanconi syndrome. 7. BPH. 8. Atrial fibrillation. 9. Morbid obesity. 10. Peripheral neuropathy. 11. Lumbar radiculopathy. 12. Depression. PLAN: 1. Reduce Zoloft to 50 mg daily. 2. Continue other medications. 3. Heart-healthy diet. 4. Incentive spirometry q.1 hour. 5. Chest x-ray. 6. Continue IV antibiotics. He needs his antibiotic renewed. 7. Continue therapy. 8. DVT and stress ulcer prophylaxis - he is on Eliquis. 9. Continue therapy. 10. Weekly CBC, CMP, CRP, and sedimentation rate. Job ID: [id number]
--- NOTE | 2020-06-26 14:11 | RAD ---
PORTABLE CHEST 1 VIEW: Date: 06/26/2020 Time: 1351 hours HISTORY: Wheezing. COMPARISON: 06/08/2020. FINDINGS/IMPRESSION: There has been interval placement of a left upper extremity PICC line with tip in the projection of t he cavoatrial junction. Heart size stable. There are bibasilar infiltrates with accompanying small ef fusions. No pneumothoraces are seen. POS: AH
[2020-06-26 14:42] LABS: Vancomycin, Trough 15.4 ug/mL
[2020-06-26] MEDS: Vancomycin HCl 1 GM in Sodium Chloride 0.9% 250 ML 250 ML IVPB SCH (15:31)
[2020-06-26] MEDS: Vancomycin HCl 750 MG in Sodium Chloride 0.9% 250 ML 250 ML IVPB SCH (15:32)
[2020-06-26] MEDS: Atorvastatin Calcium 40 MG TAB PO SCH (21:08)
[2020-06-26] MEDS: Amlodipine 5 MG TAB PO SCH (21:08)
[2020-06-26] MEDS: Cefepime 2 GM in Sodium Chloride 0.9% 100 ML IVPB SCH (21:08)
[2020-06-27] MEDS: metroNIDAZOLE 500 MG in Premix Bag 1 BAG IVPB SCH ×3 (06:20→22:10)
[2020-06-27] MEDS: Vit A,C & E/Lutein/Minerals Tablet PO SCH (09:04)
[2020-06-27] MEDS: Ascorbic Acid 500 mg Chewable Tablet PO SCH (09:04)
[2020-06-27] MEDS: Stress 600 With Zinc 1 TAB PO SCH (09:04)
[2020-06-27] MEDS: Saccharomyces boulardii 250 MG CAP PO SCH (09:04)
[2020-06-27] MEDS: Fish Oil 1,000 MG CAP PO SCH (09:04)
[2020-06-27] MEDS: Dronedarone HCl 400 MG TAB PO SCH ×2 (09:05→16:48)
[2020-06-27] MEDS: Apixaban 5 MG TAB PO SCH ×2 (09:05→19:55)
[2020-06-27] MEDS: Sucralfate 1 GM TAB PO SCH ×4 (09:05→19:55)
[2020-06-27] MEDS: Clopidogrel Bisulfate 75 MG TAB PO SCH (09:05)
[2020-06-27] MEDS: Gabapentin 300 MG CAP PO SCH ×3 (09:05→19:55)
[2020-06-27] MEDS: Famotidine 20 MG TAB PO SCH ×2 (09:05→19:55)
[2020-06-27] MEDS: LIDOCAINE 5% OINTMENT TOP SCH ×4 (09:06→19:55)
[2020-06-27] MEDS: Polyethylene Glycol OPTH DROP 15 ML BOT EA EYE SCH ×2 (09:06→19:55)
[2020-06-27] MEDS: Ferrous Sulfate 325 MG TAB PO SCH (09:06)
[2020-06-27] MEDS: Collagenase 250 UNITS/GM Ointment 30 GM TUBE TOP SCH (09:06)
[2020-06-27] MEDS: Cefepime 2 GM in Sodium Chloride 0.9% 100 ML IVPB SCH ×2 (09:07→21:15)
--- NOTE | 2020-06-27 10:03 | PRG ---
DATE OF SERVICE: 06/27/2020 SUBJECTIVE: Mr. Lauren states that he feels better today. He denies any questions or concerns. He denies any chest pain or shortness of breath. He has been compliant with his incentive spirometry. He had a chest x-ray done yesterday, which shows bibasilar infiltrates, which I think is atelectasis. He also has a small effusion, so I advised him that the incentive spirometer is very important. There was a question of wheezing, but when I asked the patient to breathe with his mouth closed and through his nostril in and out, there are no adventitious sounds. OBJECTIVE: VITAL SIGNS: He is afebrile, heart rate 74, respirations 19, oxygen saturation 97% on room air, blood pressure 153/74. CARDIOVASCULAR: S1 and S2 plus. RESPIRATORY: Normal vesicular breath sounds. ABDOMEN: Soft, nontender, obese. Bowel sounds heard in all quadrants. EXTREMITIES: Without cyanosis or clubbing. CENTRAL NERVOUS SYSTEM: Generalized weakness, otherwise nonfocal. IMPRESSION: 1. Left heel osteomyelitis with wound VAC. 2. Peripheral vascular disease, requiring percutaneous transluminal coronary angioplasty and stent to left posterior tibial. 3. Hypertension. 4. Dyslipidemia. 5. Osteoarthritis. 6. Fanconi syndrome. 7. Benign prostatic hypertrophy. 8. Atrial fibrillation. 9. Depression and anxiety. 10. Peripheral neuropathy. 11. Lumbar radiculopathy. PLAN: 1. Continue current medications. 2. Heart healthy diet. 3. Monitor heart rate and rhythm. 4. Wound care. 5. DVT prophylaxis-he is on Eliquis. 6. Decubitus precaution. 7. Stress ulcer prophylaxis. 8. Routine laboratory values. 9. Check CBC, CMP, CRP, and sedimentation rate tomorrow. 10. Continue therapy. 11. Discussed with the patient and nursing in detail. All questions answered. Job ID: [id number]
[2020-06-27] MEDS: Vancomycin HCl 1 GM in Sodium Chloride 0.9% 250 ML 250 ML IVPB SCH (15:12)
[2020-06-27] MEDS: Vancomycin HCl 750 MG in Sodium Chloride 0.9% 250 ML 250 ML IVPB SCH (15:13)
[2020-06-27] MEDS: Amlodipine 5 MG TAB PO SCH (19:54)
[2020-06-27] MEDS: Atorvastatin Calcium 40 MG TAB PO SCH (19:55)
[2020-06-28 05:42] LABS: #Basophils 0.1 thou/uL (0.0-0.2); #Eosinphils 0.3 thou/uL (0.0-0.7); #Lymphocytes 1.3 thou/uL (1.20-3.40); #Monocytes 0.7 thou/uL (0.11-0.59); #Neutrophils 4.6 thou/uL (1.40-6.50); %Basophils 0.9 % (0.0-1.0); %Eosinophils 3.7 % (0.0-10.0); %Lymphocytes 18.8 % (21.0-51.0); %Monocytes 10.2 % (0.0-10.0); %Neutrophils 66.4 % (42.0-75.0); Hemoglobin 10.1 g/dL (14.0-18.0); Hypochromia MODERATE=16-30 cells (100X) (0-5/hpf); MDiff Complete? YES; Mean Corpuscular HGB CONC 31.4 g/dL (32.0-36.0); Mean Corpuscular Hemoglobin 29.7 pg (27.0-31.0); Mean Corpuscular Volume 94.5 fL (78.0-98.0); Mean Platelet Volume 7.2 fL (7.4-10.4); Platelet Count 180 thou/uL (130-400); Platelet Morphology Comment Appears Adequate; Poikilocytosis MODERATE=16-30 cells (100X) (0-5/hpf); RBC Distribution Width 18.6 % (11.5-14.5); White Blood Cell (WBC) Count 6.9 thou/uL (4.8-10.8)
[2020-06-28] MEDS: metroNIDAZOLE 500 MG in Premix Bag 1 BAG IVPB SCH ×3 (05:43→21:03)
[2020-06-28 05:49] LABS: ALT (SGPT) 15 U/L (8-55); AST (SGOT) 23 U/L (5-34); Albumin 2.7 g/dL (3.4-4.8); Alkaline Phosphatase 54 U/L (40-110); Anion Gap 12 mmol/L (10-20); BUN (Urea Nitrogen) 13 mg/dL (8.4-25.7); Bilirubin, Total 0.4 mg/dL (0.2-1.2); CRP (Inflammatory) 1.17 mg/dL (= or < 0.5); Calc. Creatinine Clearance 133 mL/min (70-130); Calcium 8.3 mg/dL (7.8-10.44); Carbon Dioxide 24 mmol/L (23-31); Chloride 112 mmol/L (98-107); Estimated GFR-MDRD Greater than 90; Globulin 2.5 g/dL (2.4-3.5); Glucose 102 mg/dL (83-110); Potassium 3.5 mmol/L (3.5-5.1); Protein, Total 5.2 g/dL (5.8-8.1); Sodium 144 mmol/L (136-145)
--- NOTE | 2020-06-28 07:33 | PRG ---
DATE OF SERVICE: 06/28/2020 SUBJECTIVE: Mr. Lauren is up in bed. He states that he is noticing some frequent urination and I noticed that he is not on his Flomax. I had him on Flomax twice a day during the last admission, so restarted him on once daily to begin with. His breathing is doing well and his abdominal pain has pretty much resolved. OBJECTIVE: VITAL SIGNS: He is afebrile, heart rate 81, respirations 20, oxygen saturation 97% on room air, blood pressure 140/69. CARDIOVASCULAR: S1 and S2 plus. RESPIRATORY: Normal vesicular breath sounds. ABDOMEN: Soft, nontender, and obese. Bowel sounds heard in all quadrants. EXTREMITIES: Without cyanosis or clubbing. CENTRAL NERVOUS SYSTEM: Generalized weakness. Peripheral neuropathy, otherwise nonfocal. Left heel with dressing and heel lift boots. Wound VAC in place. LABORATORY VALUES: White count is 6.9, H and H are 10.1 and 32. Sedimentation rate is pending. Sodium 144, potassium 3.5, BUN and creatinine 13 and 0.81. CRP is down to 1.17. IMPRESSION: 1. Left heel osteomyelitis. 2. Peripheral vascular disease, status post percutaneous transluminal coronary angioplasty stent to left posterior tibial on the left. 3. Hypertension. 4. Dyslipidemia. 5. Benign prostatic hypertrophy. 6. Atrial fibrillation. 7. Peripheral neuropathy. 8. Osteoarthritis. 9. Fanconi syndrome. 10. Anemia of chronic disease. PLAN: 1. Continue current medications, but resume Flomax 0.4 mg at bedtime. 2. Heart healthy diet. 3. Wound VAC. 4. IV antibiotics. 5. Weekly CBC, CMP, CRP, and sedimentation rate. 6. Physical therapy. 7. Continue incentive spirometry. 8. Discussed with the patient in detail. All questions answered. 9. Dr. Nixon on-call this weekend. Job ID: [id number] [facility]
[2020-06-28] MEDS: Fish Oil 1,000 MG CAP PO SCH (08:06)
[2020-06-28] MEDS: Ascorbic Acid 500 mg Chewable Tablet PO SCH (08:07)
[2020-06-28] MEDS: Ferrous Sulfate 325 MG TAB PO SCH (08:07)
[2020-06-28] MEDS: Clopidogrel Bisulfate 75 MG TAB PO SCH (08:07)
[2020-06-28] MEDS: Famotidine 20 MG TAB PO SCH ×2 (08:07→20:37)
[2020-06-28] MEDS: Stress 600 With Zinc 1 TAB PO SCH (08:07)
[2020-06-28] MEDS: Dronedarone HCl 400 MG TAB PO SCH ×2 (08:07→17:19)
[2020-06-28] MEDS: Saccharomyces boulardii 250 MG CAP PO SCH (08:07)
[2020-06-28] MEDS: Sucralfate 1 GM TAB PO SCH ×4 (08:07→20:38)
[2020-06-28] MEDS: Gabapentin 300 MG CAP PO SCH ×3 (08:07→20:38)
[2020-06-28] MEDS: Apixaban 5 MG TAB PO SCH ×2 (08:07→20:38)
[2020-06-28] MEDS: Polyethylene Glycol OPTH DROP 15 ML BOT EA EYE SCH ×2 (08:08→20:39)
[2020-06-28] MEDS: Collagenase 250 UNITS/GM Ointment 30 GM TUBE TOP SCH (08:08)
[2020-06-28] MEDS: Vit A,C & E/Lutein/Minerals Tablet PO SCH (08:08)
[2020-06-28] MEDS: LIDOCAINE 5% OINTMENT TOP SCH ×4 (08:08→21:07)
[2020-06-28] MEDS: Cefepime 2 GM in Sodium Chloride 0.9% 100 ML IVPB SCH ×2 (11:18→21:03)
[2020-06-28] MEDS: Vancomycin HCl 750 MG in Sodium Chloride 0.9% 250 ML 250 ML IVPB SCH (15:04)
[2020-06-28] MEDS: Vancomycin HCl 1 GM in Sodium Chloride 0.9% 250 ML 250 ML IVPB SCH (15:04)
[2020-06-28] MEDS: Amlodipine 5 MG TAB PO SCH (20:38)
[2020-06-28] MEDS: Tamsulosin HCl 0.4 MG CAP PO SCH (20:38)
[2020-06-28] MEDS: Atorvastatin Calcium 40 MG TAB PO SCH (20:38)
[2020-06-29] MEDS: metroNIDAZOLE 500 MG in Premix Bag 1 BAG IVPB SCH ×3 (05:08→21:09)
[2020-06-29] MEDS: Sucralfate 1 GM TAB PO SCH ×4 (07:48→21:04)
[2020-06-29] MEDS: Dronedarone HCl 400 MG TAB PO SCH ×2 (08:19→17:06)
[2020-06-29] MEDS: Ferrous Sulfate 325 MG TAB PO SCH (08:19)
[2020-06-29] MEDS: Ascorbic Acid 500 mg Chewable Tablet PO SCH (08:20)
[2020-06-29] MEDS: Apixaban 5 MG TAB PO SCH ×2 (08:20→21:05)
[2020-06-29] MEDS: Clopidogrel Bisulfate 75 MG TAB PO SCH (08:20)
[2020-06-29] MEDS: Gabapentin 300 MG CAP PO SCH ×3 (08:20→21:05)
[2020-06-29] MEDS: Famotidine 20 MG TAB PO SCH ×2 (08:20→21:04)
[2020-06-29] MEDS: Fish Oil 1,000 MG CAP PO SCH (08:20)
[2020-06-29] MEDS: LIDOCAINE 5% OINTMENT TOP SCH ×4 (08:21→21:16)
[2020-06-29] MEDS: Collagenase 250 UNITS/GM Ointment 30 GM TUBE TOP SCH (08:21)
[2020-06-29] MEDS: Saccharomyces boulardii 250 MG CAP PO SCH (08:21)
[2020-06-29] MEDS: Polyethylene Glycol OPTH DROP 15 ML BOT EA EYE SCH ×2 (08:21→21:04)
[2020-06-29] MEDS: Vit A,C & E/Lutein/Minerals Tablet PO SCH (08:22)
[2020-06-29] MEDS: Stress 600 With Zinc 1 TAB PO SCH (08:22)
[2020-06-29] MEDS: Cefepime 2 GM in Sodium Chloride 0.9% 100 ML IVPB SCH ×2 (09:15→21:05)
[2020-06-29 14:31] LABS: Vancomycin, Trough 17.3 ug/mL
[2020-06-29] MEDS: Vancomycin HCl 1 GM in Sodium Chloride 0.9% 250 ML 250 ML IVPB SCH (16:01)
[2020-06-29] MEDS: Vancomycin HCl 750 MG in Sodium Chloride 0.9% 250 ML 250 ML IVPB SCH (16:01)
[2020-06-29] MEDS: Tamsulosin HCl 0.4 MG CAP PO SCH (21:04)
[2020-06-29] MEDS: Amlodipine 5 MG TAB PO SCH (21:05)
[2020-06-29] MEDS: Atorvastatin Calcium 40 MG TAB PO SCH (21:05)
[2020-06-30] MEDS: metroNIDAZOLE 500 MG in Premix Bag 1 BAG IVPB SCH ×3 (05:19→21:12)
[2020-06-30] MEDS: Dronedarone HCl 400 MG TAB PO SCH ×2 (07:40→16:59)
[2020-06-30] MEDS: Ferrous Sulfate 325 MG TAB PO SCH (07:40)
[2020-06-30] MEDS: Sucralfate 1 GM TAB PO SCH ×4 (07:40→21:10)
[2020-06-30] MEDS: Apixaban 5 MG TAB PO SCH ×2 (08:34→21:10)
[2020-06-30] MEDS: LIDOCAINE 5% OINTMENT TOP SCH ×4 (08:35→21:11)
[2020-06-30] MEDS: Famotidine 20 MG TAB PO SCH ×2 (08:35→21:10)
[2020-06-30] MEDS: Clopidogrel Bisulfate 75 MG TAB PO SCH (08:35)
[2020-06-30] MEDS: Gabapentin 300 MG CAP PO SCH ×3 (08:35→21:10)
[2020-06-30] MEDS: Fish Oil 1,000 MG CAP PO SCH (08:35)
[2020-06-30] MEDS: Ascorbic Acid 500 mg Chewable Tablet PO SCH (08:35)
[2020-06-30] MEDS: Polyethylene Glycol OPTH DROP 15 ML BOT EA EYE SCH ×2 (08:35→21:11)
[2020-06-30] MEDS: Vit A,C & E/Lutein/Minerals Tablet PO SCH (08:36)
[2020-06-30] MEDS: Stress 600 With Zinc 1 TAB PO SCH (08:36)
[2020-06-30] MEDS: Saccharomyces boulardii 250 MG CAP PO SCH ×2 (08:36→09:04)
[2020-06-30] MEDS: Collagenase 250 UNITS/GM Ointment 30 GM TUBE TOP SCH (08:36)
[2020-06-30] MEDS: Cefepime 2 GM in Sodium Chloride 0.9% 100 ML IVPB SCH ×2 (10:52→21:13)
[2020-06-30] MEDS: Vancomycin HCl 1 GM in Sodium Chloride 0.9% 250 ML 250 ML IVPB SCH (14:26)
[2020-06-30] MEDS: Vancomycin HCl 750 MG in Sodium Chloride 0.9% 250 ML 250 ML IVPB SCH (15:34)
[2020-06-30] MEDS: Tamsulosin HCl 0.4 MG CAP PO SCH (21:10)
[2020-06-30] MEDS: Atorvastatin Calcium 40 MG TAB PO SCH (21:10)
[2020-06-30] MEDS: Amlodipine 5 MG TAB PO SCH (21:12)
[2020-07-01] MEDS: metroNIDAZOLE 500 MG in Premix Bag 1 BAG IVPB SCH ×3 (05:29→21:29)
[2020-07-01 05:31] LABS: Hemoglobin 9.9 g/dL (14.0-18.0); Platelet Count 155 thou/uL (130-400)
[2020-07-01] MEDS: Famotidine 20 MG TAB PO SCH ×2 (08:53→21:24)
[2020-07-01] MEDS: Dronedarone HCl 400 MG TAB PO SCH ×2 (08:53→17:03)
[2020-07-01] MEDS: Fish Oil 1,000 MG CAP PO SCH (08:54)
[2020-07-01] MEDS: Apixaban 5 MG TAB PO SCH ×2 (08:54→21:24)
[2020-07-01] MEDS: Vit A,C & E/Lutein/Minerals Tablet PO SCH (08:54)
[2020-07-01] MEDS: Clopidogrel Bisulfate 75 MG TAB PO SCH (08:54)
[2020-07-01] MEDS: Sucralfate 1 GM TAB PO SCH ×4 (08:54→21:25)
[2020-07-01] MEDS: Ascorbic Acid 500 mg Chewable Tablet PO SCH (08:54)
[2020-07-01] MEDS: Gabapentin 300 MG CAP PO SCH ×3 (08:54→21:25)
[2020-07-01] MEDS: Stress 600 With Zinc 1 TAB PO SCH (08:54)
[2020-07-01] MEDS: Ferrous Sulfate 325 MG TAB PO SCH (08:54)
[2020-07-01] MEDS: LIDOCAINE 5% OINTMENT TOP SCH ×4 (08:55→21:44)
[2020-07-01] MEDS: Polyethylene Glycol OPTH DROP 15 ML BOT EA EYE SCH ×2 (08:55→21:25)
[2020-07-01] MEDS: Saccharomyces boulardii 250 MG CAP PO SCH (08:56)
[2020-07-01] MEDS: Collagenase 250 UNITS/GM Ointment 30 GM TUBE TOP SCH (08:56)
[2020-07-01] MEDS: Cefepime 2 GM in Sodium Chloride 0.9% 100 ML IVPB SCH ×2 (09:00→21:29)
--- NOTE | 2020-07-01 13:34 | PRG ---
DATE OF SERVICE: 07/01/2020 SUBJECTIVE: Mr. Lauren is up in bed. He apparently refused to get out of his bed yesterday. He looks more depressed. thought he may be overmedicated and reviewed his medications. He really is not on any medications that should be causing it. I did advise her that I cut him back down on the Zoloft from 100 mg to 50 last . He apparently is not eating or drinking well and I advised her that dehydration certainly can be part of it. I advised him to drink more fluids, increase his Ensure to t.i.d., and also placed him on a 3-day calorie count. I advised her that his laboratory values looked good. OBJECTIVE: VITAL SIGNS: He is afebrile. Heart rate 78, respirations 20, oxygen saturation 96% on room air, blood pressure 132/62. CARDIOVASCULAR: S1 and S2 plus. RESPIRATORY: Normal vesicular breath sounds. ABDOMEN: Soft, obese, nontender. Bowel sounds are heard in all quadrants. EXTREMITIES: Without cyanosis or clubbing. CENTRAL NERVOUS SYSTEM: Generalized weakness, otherwise nonfocal. He did say that the Flomax is helping with his urination. LABORATORY DATA: His sodium last checked on the was 144, potassium 3.5, BUN and creatinine is 13 and 0.81. CRP was down to 1.17. Hemoglobin and hematocrit were 9.9 and 31.5 today with a platelet count of 155. Sedimentation rate was down to 26 on the . IMPRESSION: 1. Osteomyelitis to left heel. 2. PVD requiring intervention to left posterior tibial artery. 3. Hypertension. 4. Dyslipidemia. 5. BPH. 6. Atrial fibrillation. 7. Deconditioning. 8. Depression. 9. Peripheral neuropathy. 10. Lumbar radiculopathy. PLAN: 1. Continue current medications. 2. 3-day calorie count. 3. Ensure t.i.d. 4. Encourage p.o. fluid intake. 5. Recheck BMP tomorrow. 6. Continue IV antibiotics. 7. Encourage the patient to participate with therapy. 8. Wound VAC to left heel. 9. DVT prophylaxis - he is on Eliquis. 10. Decubitus precautions. 11. Stress ulcer prophylaxis. 12. Encourage the patient to participate with therapy. I did advise him that in his current condition, he cannot go home. Job ID: [id number]
[2020-07-01] MEDS: Vancomycin HCl 750 MG in Sodium Chloride 0.9% 250 ML 250 ML IVPB SCH (14:58)
[2020-07-01] MEDS: Vancomycin HCl 1 GM in Sodium Chloride 0.9% 250 ML 250 ML IVPB SCH (14:59)
[2020-07-01] MEDS ORDERED: Sodium Chloride 0.9% 20 ML ONE (20:57)
[2020-07-01] MEDS: Atorvastatin Calcium 40 MG TAB PO SCH (21:24)
[2020-07-01] MEDS: Amlodipine 5 MG TAB PO SCH (21:24)
[2020-07-01] MEDS: Tamsulosin HCl 0.4 MG CAP PO SCH (21:25)
[2020-07-02] MEDS: metroNIDAZOLE 500 MG in Premix Bag 1 BAG IVPB SCH ×3 (05:17→21:45)
[2020-07-02] MEDS: Ascorbic Acid 500 mg Chewable Tablet PO SCH (09:41)
[2020-07-02] MEDS: Famotidine 20 MG TAB PO SCH ×2 (09:41→21:44)
[2020-07-02] MEDS: Stress 600 With Zinc 1 TAB PO SCH (09:42)
[2020-07-02] MEDS: Saccharomyces boulardii 250 MG CAP PO SCH (09:42)
[2020-07-02] MEDS: Fish Oil 1,000 MG CAP PO SCH (09:42)
[2020-07-02] MEDS: Sucralfate 1 GM TAB PO SCH ×4 (09:42→21:44)
[2020-07-02] MEDS: Clopidogrel Bisulfate 75 MG TAB PO SCH (09:42)
[2020-07-02] MEDS: Apixaban 5 MG TAB PO SCH ×2 (09:43→21:44)
[2020-07-02] MEDS: Vit A,C & E/Lutein/Minerals Tablet PO SCH (09:43)
[2020-07-02] MEDS: LIDOCAINE 5% OINTMENT TOP SCH ×4 (09:43→21:47)
[2020-07-02] MEDS: Gabapentin 300 MG CAP PO SCH ×3 (09:43→21:44)
[2020-07-02] MEDS: Collagenase 250 UNITS/GM Ointment 30 GM TUBE TOP SCH (09:44)
[2020-07-02] MEDS: Dronedarone HCl 400 MG TAB PO SCH ×2 (09:45→17:38)
[2020-07-02] MEDS: Ferrous Sulfate 325 MG TAB PO SCH (09:45)
[2020-07-02] MEDS: Polyethylene Glycol OPTH DROP 15 ML BOT EA EYE SCH ×2 (09:47→21:43)
[2020-07-02] MEDS: Cefepime 2 GM in Sodium Chloride 0.9% 100 ML IVPB SCH ×2 (11:10→21:45)
[2020-07-02] MEDS ORDERED: Sodium Chloride 0.9% 40 ML ONE (14:35)
--- NOTE | 2020-07-02 15:45 | PRG ---
DATE OF SERVICE: 07/02/2020 SUBJECTIVE: Mr. Lauren is up in bed eating lunch. He is more awake and alert. He is having chopped meats. He did say that he apparently had a test done in the hospital last evening and I advised him that he is currently in the hospital and I am not aware of any test. I reviewed his chart and I do not see anything going on. He states that it was done to assist with swallowing. I have left a message for Therapy to call me back and see if Speech Therapy patient, but I do not see any notes. The patient is on a 3-day calorie count. Again, I encouraged him to drink more water. OBJECTIVE: VITAL SIGNS: He is afebrile, heart rate 73, respirations 18, oxygen saturation 98% on 3 L nasal cannula, and blood pressure 121/84. CARDIOVASCULAR SYSTEM: S1 and S2 plus. Respiratory System: Normal vesicular breath sounds. ABDOMEN: Soft, obese, and nontender. Bowel sounds heard in all quadrants. EXTREMITIES: Without cyanosis, clubbing. He states that he is noticing more weakness in his left leg now, left heel with wound VAC, and both with heel lift boots. IMPRESSION: 1. Left heel osteomyelitis, on IV antibiotics. 2. Peripheral vascular disease, status post intervention to left posterior tibial artery. 3. Hypertension. 4. Dyslipidemia. 5. BPH. 6. Atrial fibrillation. 7. Acute hypoxemic respiratory failure. Chest x-ray showed possible atelectasis, again reinforced compliance with incentive spirometry. 8. Osteoarthritis. 9. Fanconi syndrome. 10. Peripheral neuropathy. 11. Lumbar radiculopathy. 12. Depression. 13. Poor p.o. intake. PLAN: 1. Continue current medications. 2. Continue 3-day nutritional support and 3-day calorie count. 3. Reinforce compliance with incentive spirometry. 4. Wound VAC. 5. IV antibiotics. 6. Weekly CBC, CMP, CRP, and sedimentation rate. 7. Physical therapy. 8. If the patient does not improve significantly, I advised him that his will not be able to take care of him at home and he will end up in the long-term care facility. Job ID: [id number]
[2020-07-02] MEDS: Vancomycin HCl 750 MG in Sodium Chloride 0.9% 250 ML 250 ML IVPB SCH (15:57)
[2020-07-02] MEDS: Vancomycin HCl 1 GM in Sodium Chloride 0.9% 250 ML 250 ML IVPB SCH (15:58)
[2020-07-02] MEDS: Atorvastatin Calcium 40 MG TAB PO SCH (21:44)
[2020-07-02] MEDS: Amlodipine 5 MG TAB PO SCH (21:44)
[2020-07-02] MEDS: Tamsulosin HCl 0.4 MG CAP PO SCH (21:44)
[2020-07-03] MEDS: metroNIDAZOLE 500 MG in Premix Bag 1 BAG IVPB SCH ×3 (05:22→21:00)
[2020-07-03 05:53] LABS: Band 2 % (5-11); Eosinophils 1 % (0-10); Hemoglobin 9.7 g/dL (14.0-18.0); Lymphocytes 20 % (21-51); MDiff Complete? YES; Mean Corpuscular HGB CONC 32.1 g/dL (32.0-36.0); Mean Corpuscular Hemoglobin 30.4 pg (27.0-31.0); Mean Corpuscular Volume 94.8 fL (78.0-98.0); Mean Platelet Volume 7.3 fL (7.4-10.4); Metamyelocyte 1 % (0-0); Monocytes 3 % (0-10); Neutrophil 73 % (42-75); Platelet Count 141 thou/uL (130-400); Platelet Morphology Comment Appears Adequate; RBC Distribution Width 18.4 % (11.5-14.5); RBC Morphology Normal; White Blood Cell (WBC) Count 6.1 thou/uL (4.8-10.8)
[2020-07-03 05:58] LABS: ALT (SGPT) 16 U/L (8-55); AST (SGOT) 22 U/L (5-34); Albumin 2.7 g/dL (3.4-4.8); Alkaline Phosphatase 72 U/L (40-110); Anion Gap 12 mmol/L (10-20); BUN (Urea Nitrogen) 18 mg/dL (8.4-25.7); Bilirubin, Total 0.3 mg/dL (0.2-1.2); CRP (Inflammatory) 1.26 mg/dL (= or < 0.5); Calc. Creatinine Clearance 126 mL/min (70-130); Calcium 8.4 mg/dL (7.8-10.44); Carbon Dioxide 24 mmol/L (23-31); Chloride 112 mmol/L (98-107); Estimated GFR-MDRD 87; Globulin 2.5 g/dL (2.4-3.5); Glucose 121 mg/dL (83-110); Potassium 3.6 mmol/L (3.5-5.1); Protein, Total 5.2 g/dL (5.8-8.1); Sodium 144 mmol/L (136-145)
[2020-07-03] MEDS: Famotidine 20 MG TAB PO SCH ×2 (09:31→20:55)
[2020-07-03] MEDS: Ascorbic Acid 500 mg Chewable Tablet PO SCH (09:31)
[2020-07-03] MEDS: Stress 600 With Zinc 1 TAB PO SCH (09:31)
[2020-07-03] MEDS: Fish Oil 1,000 MG CAP PO SCH (09:32)
[2020-07-03] MEDS: Saccharomyces boulardii 250 MG CAP PO SCH (09:32)
[2020-07-03] MEDS: Vit A,C & E/Lutein/Minerals Tablet PO SCH (09:32)
[2020-07-03] MEDS: Sucralfate 1 GM TAB PO SCH ×4 (09:32→20:55)
[2020-07-03] MEDS: Gabapentin 300 MG CAP PO SCH ×3 (09:32→20:55)
[2020-07-03] MEDS: Polyethylene Glycol OPTH DROP 15 ML BOT EA EYE SCH ×2 (09:33→20:54)
[2020-07-03] MEDS: Ferrous Sulfate 325 MG TAB PO SCH (09:33)
[2020-07-03] MEDS: Apixaban 5 MG TAB PO SCH ×2 (09:33→20:55)
[2020-07-03] MEDS: Clopidogrel Bisulfate 75 MG TAB PO SCH (09:33)
[2020-07-03] MEDS: Dronedarone HCl 400 MG TAB PO SCH ×2 (09:33→17:25)
[2020-07-03] MEDS: LIDOCAINE 5% OINTMENT TOP SCH ×4 (09:37→20:54)
[2020-07-03] MEDS: Cefepime 2 GM in Sodium Chloride 0.9% 100 ML IVPB SCH ×2 (09:37→21:00)
[2020-07-03] MEDS: Collagenase 250 UNITS/GM Ointment 30 GM TUBE TOP SCH (11:58)
--- NOTE | 2020-07-03 14:36 | PRG ---
DATE OF SERVICE: 07/03/2020 SUBJECTIVE: Mr. Lauren is sleeping, but arousable. He does doze off in the middle of the conversation. states that he does have a long-standing history of snoring and he probably has sleep apnea. He also has been declining with therapy, although his appetite has improved and he has been eating better since yesterday. Discussed with and informed her that laboratory values caro, I do not see any treatable condition which would explain his physical decline. The patient apparently stated that he felt like he was having a stroke this morning. He does have episodes of garbled speech. I advised her that I will get a CT of his brain to rule out any bleeding. From a blood clot standpoint, he is already on Eliquis, so there is not anything more due to there. I also advised her that we will try him on a face mask instead of the nasal cannula and see if that helps any from his sleep apnea/obesity hypoventilation. I also asked her about code status and she states that does not want a feeding tube, but she will have to check with his daughter, who apparently lives up [place] and then let me know. I did advise her that if he continues to decline or if he develops any respiratory distress, then we will maintain the full code status and we will send him over to [facility]. Just looked at his left heel wound and it still looks healthy, slough is reducing. He does have some erythema to his right upper extremity near the elbow, but there is no warmth, no tenderness. He does have 1 to 2+ pitting edema. OBJECTIVE: VITAL SIGNS: He is afebrile, heart rate 86, respirations 18, oxygen saturation 94% on 2 L, blood pressure 144/71. CARDIOVASCULAR SYSTEM: S1 and S2 plus, irregularly irregular. RESPIRATORY SYSTEM: Normal vesicular breath sounds with decreased air entry at the bases. ABDOMEN: Soft, obese, nontender. Bowel sounds heard in all quadrants. EXTREMITIES: Without cyanosis or clubbing. There is 1 to 2+ pitting edema, and left heel wound looks healthy. CENTRAL NERVOUS SYSTEM: Generalized weakness. LABORATORY DATA: Laboratory values done this morning shows a white count of 6.1, hemoglobin and hematocrit are 9.7 and 30.3, platelet count is 141. Sedimentation rate is down to 20. Sodium 144, potassium 3.6, BUN and creatinine 0.84. Blood sugar is 121. CRP is 1.26. IMPRESSION: 1. Left heel osteomyelitis, on wound VAC and IV antibiotics. 2. Peripheral vascular disease, requiring intervention to left posterior tibial artery. 3. Hypertension. 4. Dyslipidemia. 5. BPH. 6. Atrial fibrillation. 7. Osteoarthritis. 8. Fanconi syndrome. 9. Possible obstructive sleep apnea. 10. Decline in physical activity and alteration in cognition. 11. Depression. PLAN: 1. Likely metabolic encephalopathy. I do not see any infectious etiology. We will get a CT scan of the brain without contrast. 2. Possible obstructive sleep apnea. We will place him on a face mask. He unfortunately cannot do CPAP here on a trial due to lack of respiratory therapy. 3. Encourage p.o. intake including fluids. 4. Wound care with wound VAC. 5. Continue IV antibiotics. 6. to discuss with family and let me know the code status. 7. Encourage the patient to participate with therapy. 8. DVT prophylaxis - the patient is on Eliquis. 9. Decubitus precautions. 10. Stress ulcer prophylaxis. 11. Poor long-term prognosis. Job ID: [id number]
[2020-07-03 14:53] LABS: Vancomycin, Trough 20.1 ug/mL
[2020-07-03] MEDS: Vancomycin HCl 1 GM in Sodium Chloride 0.9% 250 ML 250 ML IVPB SCH (15:13)
--- NOTE | 2020-07-03 15:14 | CT ---
CT OF THE HEAD WITHOUT CONTRAST: 07/03/20 HISTORY: Dysarthria, altered mental status. Past medial history of CVA. COMPARISON: None. CORRELATION: Brain MRI 05/14/20. FINDINGS: No parenchymal hemorrhage. No extra-axial hematoma. No midline shift. Basilar cisterns are patent. Ag e appropriate atrophy. Cortical alvarado-white matter differentiation is preserved. There is mild dilatation of the ventricular system in keeping with the overall degree of atrophy. The re are chronic small vessel ischemic change in the white matter. Adequate aeration of the paranasal s inuses. There is complete opacification of the right mastoid air cells and partial opacification of t he left mastoid air cells, similar to previous MRI. Intact calvarium. IMPRESSION: No acute intracranial process. POS: PPP
[2020-07-03] MEDS: Vancomycin HCl 750 MG in Sodium Chloride 0.9% 250 ML 250 ML IVPB SCH (17:25)
[2020-07-03] MEDS: Amlodipine 5 MG TAB PO SCH (20:55)
[2020-07-03] MEDS: Atorvastatin Calcium 40 MG TAB PO SCH (20:55)
[2020-07-03] MEDS: Tamsulosin HCl 0.4 MG CAP PO SCH (20:55)
[2020-07-04] MEDS: metroNIDAZOLE 500 MG in Premix Bag 1 BAG IVPB SCH ×3 (05:10→21:43)
[2020-07-04] MEDS: Ascorbic Acid 500 mg Chewable Tablet PO SCH (08:19)
[2020-07-04] MEDS: Apixaban 5 MG TAB PO SCH ×2 (08:19→20:36)
[2020-07-04] MEDS: Sucralfate 1 GM TAB PO SCH ×4 (08:19→20:36)
[2020-07-04] MEDS: Dronedarone HCl 400 MG TAB PO SCH ×2 (08:19→17:23)
[2020-07-04] MEDS: Ferrous Sulfate 325 MG TAB PO SCH (08:19)
[2020-07-04] MEDS: LIDOCAINE 5% OINTMENT TOP SCH ×4 (08:20→20:37)
[2020-07-04] MEDS: Fish Oil 1,000 MG CAP PO SCH (08:20)
[2020-07-04] MEDS: Polyethylene Glycol OPTH DROP 15 ML BOT EA EYE SCH ×2 (08:20→20:35)
[2020-07-04] MEDS: Gabapentin 300 MG CAP PO SCH ×3 (08:20→20:35)
[2020-07-04] MEDS: Clopidogrel Bisulfate 75 MG TAB PO SCH (08:20)
[2020-07-04] MEDS: Famotidine 20 MG TAB PO SCH ×2 (08:20→20:35)
[2020-07-04] MEDS: Collagenase 250 UNITS/GM Ointment 30 GM TUBE TOP SCH (08:21)
[2020-07-04] MEDS: Stress 600 With Zinc 1 TAB PO SCH (08:21)
[2020-07-04] MEDS: Saccharomyces boulardii 250 MG CAP PO SCH (08:21)
[2020-07-04] MEDS: Vit A,C & E/Lutein/Minerals Tablet PO SCH (08:21)
[2020-07-04] MEDS: Cefepime 2 GM in Sodium Chloride 0.9% 100 ML IVPB SCH ×2 (10:51→21:43)
[2020-07-04] MEDS: Vancomycin HCl 1 GM in Sodium Chloride 0.9% 250 ML 250 ML IVPB SCH (14:36)
[2020-07-04] MEDS: Vancomycin HCl 750 MG in Sodium Chloride 0.9% 250 ML 250 ML IVPB SCH (15:46)
--- NOTE | 2020-07-04 18:41 | PRG ---
DATE OF SERVICE: 07/04/2020 SUBJECTIVE: Mr. Lauren is much more responsive today. His speech is actually more understandable. He states that the face mask is really helping, continuing to do the 3-day calorie count. His also stated that his daughters will be here tomorrow and will make decisions on his code status. I encouraged him to participate with therapy. Plan is to also start him on some IV Lasix as some of his fluid retention may be related to a combination of untreated chronic sleep apnea and sodium load from his IV antibiotics. OBJECTIVE: VITAL SIGNS: He is afebrile, heart rate 83, respirations 18, oxygen saturation 98% on 2.5 L face mask, and blood pressure 129/77. CARDIOVASCULAR SYSTEM: S1 and S2 plus. RESPIRATORY SYSTEM: Normal vesicular breath sounds with occasional rhonchi. ABDOMEN: Soft, obese, nontender. Bowel sounds heard in all quadrants. EXTREMITIES: Without cyanosis or clubbing. 1 to 2+ edema. Left heel with wound VAC. CENTRAL NERVOUS SYSTEM: Generalized weakness. IMPRESSION: 1. Osteomyelitis to left heel due. 2. Peripheral vascular disease, requiring percutaneous transluminal coronary angioplasty and stent to left posterior tibial. 3. Hypertension. 4. Dyslipidemia. 5. Benign prostatic hypertrophy. 6. Atrial fibrillation. 7. Likely obstructive sleep apnea/obesity hypoventilation syndrome. 8. Fluid retention, possibly combination of poor p.o. intake and sodium load as well as his obstructive sleep apnea. 9. Fanconi syndrome. 10. Osteoarthritis. 11. Depression. PLAN: 1. Continue current medications. 2. We will start with IV Lasix 20 mg daily from tomorrow. Check BNP for completion sake. 3. Continue facemask oxygen. 4. Encourage p.o. intake and await 3-day calorie count. 5. Encourage the patient to participate with PT. 6. DVT prophylaxis, the patient is on Eliquis. 7. Decubitus precautions. 8. Stress ulcer prophylaxis. 9. Wound VAC care. 10. Continue IV antibiotics until 07/19. 11. Discussed with the patient and all questions answered. Job ID: [id number]
[2020-07-04] MEDS: Atorvastatin Calcium 40 MG TAB PO SCH (20:36)
[2020-07-04] MEDS: Amlodipine 5 MG TAB PO SCH (20:36)
[2020-07-04] MEDS: Tamsulosin HCl 0.4 MG CAP PO SCH (20:36)
[2020-07-05] MEDS: metroNIDAZOLE 500 MG in Premix Bag 1 BAG IVPB SCH ×3 (05:02→21:48)
[2020-07-05] MEDS: Ascorbic Acid 500 mg Chewable Tablet PO SCH (09:54)
[2020-07-05] MEDS: Vit A,C & E/Lutein/Minerals Tablet PO SCH (09:54)
[2020-07-05] MEDS: Apixaban 5 MG TAB PO SCH ×2 (09:54→20:42)
[2020-07-05] MEDS: Fish Oil 1,000 MG CAP PO SCH (09:54)
[2020-07-05] MEDS: Stress 600 With Zinc 1 TAB PO SCH (09:54)
[2020-07-05] MEDS: Saccharomyces boulardii 250 MG CAP PO SCH (09:54)
[2020-07-05] MEDS: Sucralfate 1 GM TAB PO SCH ×4 (09:55→20:42)
[2020-07-05] MEDS: Ferrous Sulfate 325 MG TAB PO SCH (09:55)
[2020-07-05] MEDS: Polyethylene Glycol OPTH DROP 15 ML BOT EA EYE SCH ×2 (09:55→20:42)
[2020-07-05] MEDS: Dronedarone HCl 400 MG TAB PO SCH ×2 (09:55→17:29)
[2020-07-05] MEDS: Famotidine 20 MG TAB PO SCH ×2 (09:55→20:42)
[2020-07-05] MEDS: Gabapentin 300 MG CAP PO SCH ×3 (09:55→20:42)
[2020-07-05] MEDS: Clopidogrel Bisulfate 75 MG TAB PO SCH (09:55)
[2020-07-05] MEDS: Cefepime 2 GM in Sodium Chloride 0.9% 100 ML IVPB SCH ×2 (09:56→21:48)
[2020-07-05] MEDS: Furosemide 20 MG/2 ML VIAL SLOW IVP SCH (09:56)
[2020-07-05] MEDS: LIDOCAINE 5% OINTMENT TOP SCH ×4 (09:56→20:43)
[2020-07-05] MEDS: Collagenase 250 UNITS/GM Ointment 30 GM TUBE TOP SCH (09:57)
--- NOTE | 2020-07-05 10:02 | PRG ---
DATE OF SERVICE: 07/05/2020 SUBJECTIVE: Mr. Lauren is more somnolent and confused this morning. I also found him on a nasal cannula. I checked with nursing, and apparently, they switched him over to a nasal cannula last night, and they are not sure why. I specifically had asked them to keep him on the face mask as he is a mouth breather and he probably has sleep apnea, and he was doing well from a mental standpoint when he was on the face mask. He was replaced back on the face mask. OBJECTIVE: VITAL SIGNS: He is afebrile. Heart rate 87, respirations 22, oxygen saturation 92%, this was on nasal cannula, blood pressure 138/65. CARDIOVASCULAR SYSTEM: S1 and S2 plus. RESPIRATORY SYSTEM: Normal vesicular breath sounds. ABDOMEN: Soft, nontender, bowel sounds heard in all quadrants, obese. EXTREMITIES: Without cyanosis or clubbing. 1 to 2+ edema. Left heel with wound VAC. CENTRAL NERVOUS SYSTEM: Some confusion, but otherwise nonfocal. IMPRESSION: 1. Possible untreated obstructive sleep apnea. He was doing well on a face mask. We will get him back on a face mask. 2. Atrial fibrillation, on Eliquis. 3. Hypertension. 4. Dyslipidemia. 5. Benign prostatic hypertrophy. 6. Osteoarthritis. 7. Fanconi syndrome. 8. Osteomyelitis of the left heel. 9. Peripheral vascular disease. 10. Poor p.o. intake. PLAN: 1. Await three-day calorie count. 2. Continue current medications, but add Lasix 20 mg IV daily. 3. Recheck BMP, CBC in the morning. 4. Face mask at all times. 5. DVT prophylaxis, he is on Eliquis. 6. Decubitus precautions. 7. Stress ulcer prophylaxis. 8. Wound VAC care. 9. Continue IV antibiotics. 10. Await his daughter's arrival, and we will have a family conference about his code status. Job ID: [id number]
[2020-07-05] MEDS: Nystatin 500,000 UNITS/5 ML UDCUP SSW SCH ×2 (15:32→20:42)
[2020-07-05] MEDS: Vancomycin HCl 750 MG in Sodium Chloride 0.9% 250 ML 250 ML IVPB SCH (15:33)
[2020-07-05] MEDS: Vancomycin HCl 1 GM in Sodium Chloride 0.9% 250 ML 250 ML IVPB SCH (15:34)
[2020-07-05] MEDS: Tamsulosin HCl 0.4 MG CAP PO SCH (20:41)
[2020-07-05] MEDS: Atorvastatin Calcium 40 MG TAB PO SCH (20:42)
[2020-07-05] MEDS: Amlodipine 5 MG TAB PO SCH (20:42)
[2020-07-06] MEDS: metroNIDAZOLE 500 MG in Premix Bag 1 BAG IVPB SCH ×3 (05:18→20:58)
[2020-07-06 05:37] LABS: #Basophils 0.1 thou/uL (0.0-0.2); #Eosinphils 0.2 thou/uL (0.0-0.7); #Lymphocytes 0.8 thou/uL (1.20-3.40); #Monocytes 0.7 thou/uL (0.11-0.59); #Neutrophils 5.9 thou/uL (1.40-6.50); %Basophils 0.8 % (0.0-1.0); %Eosinophils 2.6 % (0.0-10.0); %Lymphocytes 10.6 % (21.0-51.0); %Monocytes 8.4 % (0.0-10.0); %Neutrophils 77.6 % (42.0-75.0); Hemoglobin 9.7 g/dL (14.0-18.0); Mean Corpuscular HGB CONC 30.4 g/dL (32.0-36.0); Mean Corpuscular Hemoglobin 29.4 pg (27.0-31.0); Mean Corpuscular Volume 96.6 fL (78.0-98.0); Mean Platelet Volume 7.4 fL (7.4-10.4); Platelet Count 145 thou/uL (130-400); RBC Distribution Width 18.1 % (11.5-14.5); Red Blood Cell (RBC) Count 3.29 mill/uL (4.70-6.10); White Blood Cell (WBC) Count 7.7 thou/uL (4.8-10.8)
[2020-07-06 05:50] LABS: Anion Gap 13 mmol/L (10-20); BUN (Urea Nitrogen) 19 mg/dL (8.4-25.7); Calc. Creatinine Clearance 123 mL/min (70-130); Calcium 8.5 mg/dL (7.8-10.44); Carbon Dioxide 23 mmol/L (23-31); Chloride 111 mmol/L (98-107); Estimated GFR-MDRD 85; Glucose 114 mg/dL (83-110); Potassium 3.8 mmol/L (3.5-5.1); Sodium 143 mmol/L (136-145)
[2020-07-06] MEDS: Furosemide 20 MG/2 ML VIAL SLOW IVP SCH (09:39)
[2020-07-06] MEDS: Polyethylene Glycol OPTH DROP 15 ML BOT EA EYE SCH ×2 (09:39→20:45)
[2020-07-06] MEDS: Nystatin 500,000 UNITS/5 ML UDCUP SSW SCH ×4 (09:39→20:45)
[2020-07-06] MEDS: Cefepime 2 GM in Sodium Chloride 0.9% 100 ML IVPB SCH ×2 (09:40→20:59)
[2020-07-06] MEDS: Ferrous Sulfate 325 MG TAB PO SCH (09:41)
[2020-07-06] MEDS: Stress 600 With Zinc 1 TAB PO SCH (09:41)
[2020-07-06] MEDS: Vit A,C & E/Lutein/Minerals Tablet PO SCH (09:41)
[2020-07-06] MEDS: Fish Oil 1,000 MG CAP PO SCH (09:41)
[2020-07-06] MEDS: Gabapentin 300 MG CAP PO SCH ×3 (09:41→20:45)
[2020-07-06] MEDS: Famotidine 20 MG TAB PO SCH ×2 (09:41→20:46)
[2020-07-06] MEDS: Saccharomyces boulardii 250 MG CAP PO SCH (09:41)
[2020-07-06] MEDS: Ascorbic Acid 500 mg Chewable Tablet PO SCH (09:41)
[2020-07-06] MEDS: Clopidogrel Bisulfate 75 MG TAB PO SCH (09:41)
[2020-07-06] MEDS: Collagenase 250 UNITS/GM Ointment 30 GM TUBE TOP SCH (09:42)
[2020-07-06] MEDS: Sucralfate 1 GM TAB PO SCH ×4 (09:42→20:47)
[2020-07-06] MEDS: Dronedarone HCl 400 MG TAB PO SCH ×2 (09:42→16:23)
[2020-07-06] MEDS: Apixaban 5 MG TAB PO SCH ×2 (09:42→20:46)
[2020-07-06] MEDS: LIDOCAINE 5% OINTMENT TOP SCH ×4 (09:42→20:46)
[2020-07-06 14:45] LABS: Vancomycin, Trough 22.9 ug/mL
[2020-07-06] MEDS: Vancomycin HCl 1 GM in Sodium Chloride 0.9% 250 ML 250 ML IVPB SCH (15:41)
[2020-07-06] MEDS: Vancomycin HCl 750 MG in Sodium Chloride 0.9% 250 ML 250 ML IVPB SCH (15:42)
[2020-07-06] MEDS ORDERED: Furosemide 40 MG/4 ML VIAL SLOW IVP SCH (16:15)
--- NOTE | 2020-07-06 16:46 | PRG ---
DATE OF SERVICE: 07/06/2020 SUBJECTIVE: Mr. Lauren is much more awake and responsive this morning. He is pretty much back to his baseline mental status caro. His daughter from [place] and his are in the room and I had a long discussion with them given his multiple medical problems, the issues we are facing which are: 1. Not enough p.o. intake. His last calorie count for the was a total of 584 calories and 33 g of protein. 2. Not motivated to participate with therapy. 3. The possibility of sleep apnea resulting in hypoxemia and hypercarbia, which may be the reason for his fluctuating mental status. 4. Right leg weakness, which prevents him from using that leg for full weightbearing and just toe-touch for his left leg, which may help him get out of bed and move around. Family and the patient in agreement that they are going to try to feed him his favorite foods, so we can get the caloric intake up. The patient states that he will work with therapy more and fight harder and be more motivated. Continue the face mask for his oxygen, which seems to be really helping and at this point, they do not want to go to [place] to try a CPAP, but they are agreeable for a sleep study as outpatient. Continue antibiotics and wound VAC. He wants to be a DNR, and both his spouse and his daughter agree and I am going to make a change. I am going to increase his Lasix to 40 mg daily to see if it helps any with his edema, the 20 is helping, so we will try the 40, but monitor his renal function closely. OBJECTIVE: VITAL SIGNS: He is afebrile. Heart rate 75, respirations 22, oxygen saturation 100% on 2 L, blood pressure 122/98. CARDIOVASCULAR SYSTEM: S1, S2 plus. RESPIRATORY SYSTEM: Normal vesicular breath sounds with decreased air entry in the bases. ABDOMEN: Soft, obese, nontender. Bowel sounds heard in all quadrants. EXTREMITIES: Without cyanosis, clubbing. 1 to 2+ edema, still. Left heel with a wound VAC. CENTRAL NERVOUS SYSTEM: Generalized weakness. LABORATORY VALUES: His vanc trough is 22.9. His creatinine is 0.98 and his H and H are 9.7 and 31.8 with a white count of 7.7. IMPRESSION: 1. Left heel osteomyelitis, on wound VAC and IV antibiotics. 2. Peripheral vascular disease, status post intervention to left posterior tibial. 3. Hypertension. 4. Dyslipidemia. 5. Atrial fibrillation. 6. BPH. 7. Osteoarthritis. 8. Fanconi syndrome. 9. Depression. 10. Peripheral neuropathy. 11. Right lumbar radiculopathy with significant weakness to right leg. 12. Obesity. 13. Possible obstructive sleep apnea. 14. Poor p.o. intake. PLAN: 1. Continue current medications. 2. Increase Lasix to 40 mg IV daily. 3. Continue antibiotics. 4. Weekly CBC, CMP, CRP, and sedimentation rate. 5. Encourage the patient to eat better. Family is going to help. 6. DVT prophylaxis, he is on Eliquis. 7. Decubitus precautions. 8. Stress ulcer prophylaxis. 9. Continue wound VAC. 10. Physical therapy. 11. I advised nursing to not try to get him out of bed as he is significantly weak and is such a high fall risk. If he needs more than I would safely be able to help. For full details, please see chart. Job ID: [id number]
[2020-07-06] MEDS ORDERED: Furosemide 20 MG/2 ML VIAL SLOW IVP SCH (18:30)
[2020-07-06] MEDS ORDERED: Sodium Chloride 0.9% 10 ML ONE (18:58)
[2020-07-06] MEDS: Atorvastatin Calcium 40 MG TAB PO SCH (20:45)
[2020-07-06] MEDS: Tamsulosin HCl 0.4 MG CAP PO SCH (20:46)
[2020-07-06] MEDS: Amlodipine 5 MG TAB PO SCH (20:46)
[2020-07-07] MEDS: metroNIDAZOLE 500 MG in Premix Bag 1 BAG IVPB SCH ×3 (05:15→21:05)
[2020-07-07] MEDS: Saccharomyces boulardii 250 MG CAP PO SCH (08:06)
[2020-07-07] MEDS: Nystatin 500,000 UNITS/5 ML UDCUP SSW SCH ×4 (08:06→20:52)
[2020-07-07] MEDS: Vit A,C & E/Lutein/Minerals Tablet PO SCH (08:06)
[2020-07-07] MEDS: Furosemide 40 MG/4 ML VIAL SLOW IVP SCH (08:06)
[2020-07-07] MEDS: Ascorbic Acid 500 mg Chewable Tablet PO SCH (08:07)
[2020-07-07] MEDS: Stress 600 With Zinc 1 TAB PO SCH (08:07)
[2020-07-07] MEDS: Gabapentin 300 MG CAP PO SCH ×3 (08:07→20:53)
[2020-07-07] MEDS: Famotidine 20 MG TAB PO SCH ×2 (08:07→20:52)
[2020-07-07] MEDS: Apixaban 5 MG TAB PO SCH ×2 (08:07→20:53)
[2020-07-07] MEDS: Fish Oil 1,000 MG CAP PO SCH (08:07)
[2020-07-07] MEDS: Clopidogrel Bisulfate 75 MG TAB PO SCH (08:07)
[2020-07-07] MEDS: Collagenase 250 UNITS/GM Ointment 30 GM TUBE TOP SCH (08:08)
[2020-07-07] MEDS: Dronedarone HCl 400 MG TAB PO SCH ×2 (08:08→17:29)
[2020-07-07] MEDS: LIDOCAINE 5% OINTMENT TOP SCH ×4 (08:08→20:53)
[2020-07-07] MEDS: Polyethylene Glycol OPTH DROP 15 ML BOT EA EYE SCH ×2 (08:08→20:52)
[2020-07-07] MEDS: Sucralfate 1 GM TAB PO SCH ×4 (08:08→20:54)
[2020-07-07] MEDS: Ferrous Sulfate 325 MG TAB PO SCH (08:08)
[2020-07-07] MEDS ORDERED: Sodium Chloride 0.9% 10 ML ONE (08:19)
[2020-07-07] MEDS: Vancomycin HCl 1 GM in Sodium Chloride 0.9% 250 ML 250 ML IVPB SCH (14:43)
[2020-07-07] MEDS: Vancomycin HCl 750 MG in Sodium Chloride 0.9% 250 ML 250 ML IVPB SCH (14:44)
--- NOTE | 2020-07-07 16:00 | PRG ---
DATE OF SERVICE: 07/07/2020 SUBJECTIVE: Mr. Lauren is doing well. He is up in bed. His daughter is in the room. He is alert and responsive. He apparently is eating better. He had a protein shake. He is scheduled to participate with therapy again. OBJECTIVE: VITAL SIGNS: He is afebrile. Heart rate 80, respirations 20, oxygen saturation 96% on 2 L, blood pressure 138/64. CARDIOVASCULAR SYSTEM: S1, S2 plus. RESPIRATORY SYSTEM: Normal vesicular breath sounds. ABDOMEN: Soft, obese, and nontender. Bowel sounds heard in all quadrants. EXTREMITIES: Without cyanosis or clubbing. Still with 2+ edema. CENTRAL NERVOUS SYSTEM: Generalized weakness. IMPRESSION: 1. Left heel osteomyelitis. 2. Peripheral vascular disease. 3. Hypertension. 4. Dyslipidemia. 5. BPH. 6. Atrial fibrillation. 7. Possible obstructive sleep apnea. 8. Peripheral neuropathy. 9. Lumbar radiculopathy. 10. Depression and anxiety. 11. Significant deconditioning. 12. Osteoarthritis. 13. Fanconi syndrome. PLAN: 1. Continue current medications. 2. Nutritional support. 3. DVT prophylaxis - he is on Eliquis. 4. Decubitus precautions. 5. Stress ulcer prophylaxis. 6. Continue Lasix. 7. Recheck BMP in the morning. 8. Physical therapy. 9. Wound VAC. 10. Continue antibiotics. 11. Discussed with the patient and daughter. Job ID: [id number]
[2020-07-07] MEDS: Tamsulosin HCl 0.4 MG CAP PO SCH (20:52)
[2020-07-07] MEDS: Atorvastatin Calcium 40 MG TAB PO SCH (20:53)
[2020-07-07] MEDS: Amlodipine 5 MG TAB PO SCH (20:53)
[2020-07-07] MEDS: Cefepime 2 GM in Sodium Chloride 0.9% 100 ML IVPB SCH (21:07)
[2020-07-08] MEDS: metroNIDAZOLE 500 MG in Premix Bag 1 BAG IVPB SCH ×3 (05:18→22:35)
[2020-07-08 05:57] LABS: Anion Gap 13 mmol/L (10-20); BUN (Urea Nitrogen) 24 mg/dL (8.4-25.7); Calc. Creatinine Clearance 105 mL/min (70-130); Calcium 8.6 mg/dL (7.8-10.44); Carbon Dioxide 26 mmol/L (23-31); Chloride 108 mmol/L (98-107); Estimated GFR-MDRD 67; Glucose 121 mg/dL (83-110); Potassium 3.7 mmol/L (3.5-5.1); Sodium 143 mmol/L (136-145)
[2020-07-08] MEDS: Sucralfate 1 GM TAB PO SCH ×4 (08:52→21:46)
[2020-07-08] MEDS: Dronedarone HCl 400 MG TAB PO SCH ×2 (08:53→17:21)
[2020-07-08] MEDS: Apixaban 5 MG TAB PO SCH ×2 (08:53→21:45)
[2020-07-08] MEDS: Ferrous Sulfate 325 MG TAB PO SCH (08:53)
[2020-07-08] MEDS: Ascorbic Acid 500 mg Chewable Tablet PO SCH (08:53)
[2020-07-08] MEDS: Furosemide 40 MG/4 ML VIAL SLOW IVP SCH ×2 (08:54→13:15)
[2020-07-08] MEDS: Famotidine 20 MG TAB PO SCH ×2 (08:54→21:45)
[2020-07-08] MEDS: Clopidogrel Bisulfate 75 MG TAB PO SCH (08:54)
[2020-07-08] MEDS: LIDOCAINE 5% OINTMENT TOP SCH ×4 (08:54→21:45)
[2020-07-08] MEDS: Nystatin 500,000 UNITS/5 ML UDCUP SSW SCH ×4 (08:54→21:44)
[2020-07-08] MEDS: Polyethylene Glycol OPTH DROP 15 ML BOT EA EYE SCH ×2 (08:54→21:42)
[2020-07-08] MEDS: Gabapentin 300 MG CAP PO SCH ×3 (08:54→21:45)
[2020-07-08] MEDS: Fish Oil 1,000 MG CAP PO SCH (08:54)
[2020-07-08] MEDS: Saccharomyces boulardii 250 MG CAP PO SCH (08:55)
[2020-07-08] MEDS: Vit A,C & E/Lutein/Minerals Tablet PO SCH (08:55)
[2020-07-08] MEDS: Stress 600 With Zinc 1 TAB PO SCH (08:55)
[2020-07-08] MEDS: Collagenase 250 UNITS/GM Ointment 30 GM TUBE TOP SCH (08:55)
[2020-07-08] MEDS: Cefepime 2 GM in Sodium Chloride 0.9% 100 ML IVPB SCH ×2 (10:58→21:43)
--- NOTE | 2020-07-08 13:07 | PRG ---
DATE OF SERVICE: 07/08/2020 DISCUSSION: Mr. Lauren is up in bed. He is eating lunch that his bought from [employer]. He apparently sat on the side of his bed. He continues to have significant edema to his lower extremity and I am going to increase his Lasix to b.i.d. No other concerns or questions was renewed yesterday. OBJECTIVE: VITAL SIGNS: He is afebrile, heart rate 93, respirations are 18, oxygen saturation 93% on 2 L, and blood pressure 126/73. CARDIOVASCULAR SYSTEM: S1 and S2 plus. RESPIRATORY SYSTEM: Normal vesicular breath sounds. ABDOMEN: Soft, obese, and nontender. Bowel sounds heard in all quadrants. EXTREMITIES: Without cyanosis, clubbing, 2+ edema. Left heel with wound VAC. Both feet with pressure relief boots. CENTRAL NERVOUS SYSTEM: Generalized weakness. IMPRESSION: 1. Left heel osteomyelitis. 2. Peripheral vascular disease. 3. Hypertension. 4. Dyslipidemia. 5. Atrial fibrillation. 6. BPH. 7. Depression and anxiety. 8. Possible obstructive sleep apnea. 9. Depression. 10. Fanconi syndrome. 11. Osteoarthritis. 12. Lower extremity edema, likely due to IV fluids and possibly poor nutrition. PLAN: 1. Increase Lasix to 40 mg IV b.i.d. 2. Continue other medications. 3. Heart healthy diet. 4. Continue therapy. 5. Wound VAC. 6. IV antibiotics. 7. Routine laboratory values. 8. Continue oxygen via face mask. 9. Discussed with the patient and spouse in detail. All questions were answered. Job ID: [id number]
[2020-07-08] MEDS ORDERED: Sodium Chloride 0.9% 10 ML ONE (13:10)
[2020-07-08 14:43] LABS: Vancomycin, Trough 25.6 ug/mL
[2020-07-08] MEDS: Vancomycin HCl 1 GM in Sodium Chloride 0.9% 250 ML 250 ML IVPB SCH (15:52)
[2020-07-08] MEDS: Amlodipine 5 MG TAB PO SCH (21:44)
[2020-07-08] MEDS: Atorvastatin Calcium 40 MG TAB PO SCH (21:45)
[2020-07-08] MEDS: Tamsulosin HCl 0.4 MG CAP PO SCH (21:45)
[2020-07-09] MEDS: metroNIDAZOLE 500 MG in Premix Bag 1 BAG IVPB SCH ×3 (05:20→21:03)
[2020-07-09] MEDS: Furosemide 40 MG/4 ML VIAL SLOW IVP SCH ×2 (06:14→14:28)
[2020-07-09] MEDS: Sucralfate 1 GM TAB PO SCH ×4 (08:31→21:04)
[2020-07-09] MEDS: Dronedarone HCl 400 MG TAB PO SCH ×2 (08:31→17:41)
[2020-07-09] MEDS: Ferrous Sulfate 325 MG TAB PO SCH (08:31)
[2020-07-09] MEDS: Gabapentin 300 MG CAP PO SCH ×3 (08:32→21:04)
[2020-07-09] MEDS: Fish Oil 1,000 MG CAP PO SCH (08:32)
[2020-07-09] MEDS: Famotidine 20 MG TAB PO SCH (08:32)
[2020-07-09] MEDS: Ascorbic Acid 500 mg Chewable Tablet PO SCH (08:32)
[2020-07-09] MEDS: Apixaban 5 MG TAB PO SCH ×2 (08:32→21:04)
[2020-07-09] MEDS: Clopidogrel Bisulfate 75 MG TAB PO SCH (08:32)
[2020-07-09] MEDS: LIDOCAINE 5% OINTMENT TOP SCH ×4 (08:33→21:05)
[2020-07-09] MEDS: Polyethylene Glycol OPTH DROP 15 ML BOT EA EYE SCH ×2 (08:33→21:03)
[2020-07-09] MEDS: Saccharomyces boulardii 250 MG CAP PO SCH (08:33)
[2020-07-09] MEDS: Stress 600 With Zinc 1 TAB PO SCH (08:34)
[2020-07-09] MEDS: Collagenase 250 UNITS/GM Ointment 30 GM TUBE TOP SCH (08:34)
[2020-07-09] MEDS: Vit A,C & E/Lutein/Minerals Tablet PO SCH (08:34)
[2020-07-09] MEDS: Nystatin 500,000 UNITS/5 ML UDCUP SSW SCH ×4 (08:35→21:03)
[2020-07-09 10:02] VITALS: BMI 39.6
[2020-07-09] MEDS: Cefepime 2 GM in Sodium Chloride 0.9% 100 ML IVPB SCH ×2 (10:46→21:02)
--- NOTE | 2020-07-09 13:28 | PRG ---
DATE OF SERVICE: SUBJECTIVE: Mr. Lauren is not doing well today compared to the last 2 days. He is more somnolent, more lethargic. He apparently was more confused and combative last night. He hardly ate anything for breakfast or lunch. He did not do much with therapy. He states that he does not want IV fluids even short-term. He definitely does not want a PEG tube or NG feeding. He also does not want any aggressive measures including CPR, chest compressions, bagging, or noninvasive positive-pressure ventilation. The patient, his spouse, and I had a long discussion and talked to him that he has two options, one is try to eat well and try to participate with therapy, maybe even get transferred to the hospital in [place] and try CPAP at night to see if that makes a difference and get an echocardiogram and specialist evaluation or he can if he wants more comfort care and we can stop all the IV fluids and medications and just keep him on comfort under hospice care. He seems to be leaning towards it, but I told him not to make any decision now, but to think about it and then talk with his spouse and his daughter and then let me know. In the meantime, he is developing more erythema to his right arm. Minimal warmth. No tenderness. He is on vancomycin, cefepime, and metronidazole, and I cannot imagine him having another infection, but we will get blood cultures x2. He is also due for his routine CBC, CMP, CRP, and sedimentation rate tomorrow. He is apparently diuresing well with the Lasix, but he continues to have 2+ edema to his right leg and about 1+ to the left. OBJECTIVE: VITAL SIGNS: He is afebrile, heart rate 75, respirations 18, oxygen saturation 93% on 2 L face mask, blood pressure 123/67. CARDIOVASCULAR: S1 and S2 plus. RESPIRATORY: Normal vesicular breath sounds. ABDOMEN: Soft, distended. Bowel sounds heard in all quadrants. EXTREMITIES: 1+ edema to the left, 2+ to the right. Left heel with wound VAC. Both feet with a pressure relief boot. CENTRAL NERVOUS SYSTEM: More somnolent today. Does respond appropriately. Speech is also slightly more dysarthric. Speech therapy saw him and has recommended thickened liquids, but family has opted not to do that, they are aware of the risks. IMPRESSION: 1. Left heel osteomyelitis. 2. Peripheral vascular disease. 3. Hypertension. 4. Dyslipidemia. 5. Atrial fibrillation. 6. Benign prostatic hypertrophy. 7. Possible obesity hypoventilation/obstructive sleep apnea, untreated. 8. Fanconi syndrome. 9. Osteoarthritis. 10. Peripheral neuropathy. 11. Gastroesophageal reflux disease. 12. Depression. PLAN: 1. Continue current medications. 2. Add simethicone 80 mg after each meal and at bedtime. 3. Change Pepcid to Protonix. 4. Blood cultures x2 now. 5. CBC, CMP, CRP, and sedimentation rate tomorrow. 6. Continue antibiotics. 7. Encourage p.o. intake. 8. Discussed with the patient and spouse about the different options. They will let me know tomorrow. 9. Continue Eliquis for DVT prophylaxis. 10. Decubitus precautions. 11. Wound VAC care. 12. Therapy as tolerated. 13. Poor long-term prognosis. Job ID: [id number]
[2020-07-09] MEDS: Simethicone Chewable 80 MG TAB PO SCH ×3 (14:28→21:04)
[2020-07-09] MEDS: Vancomycin HCl 750 MG in Sodium Chloride 0.9% 250 ML 250 ML IVPB SCH (14:30)
[2020-07-09] MEDS: Vancomycin HCl 500 MG in Sodium Chloride 0.9% 100 ML IVPB SCH (14:31)
[2020-07-09] MEDS ORDERED: Vancomycin HCl 750 MG in Sodium Chloride 0.9% 250 ML 250 ML IVPB SCH (15:00)
[2020-07-09] MEDS ORDERED: Vancomycin HCl 500 MG in Sodium Chloride 0.9% 100 ML IVPB SCH (16:00)
[2020-07-09] MEDS: Amlodipine 5 MG TAB PO SCH (21:04)
[2020-07-09] MEDS: Atorvastatin Calcium 40 MG TAB PO SCH (21:04)
[2020-07-09] MEDS: Tamsulosin HCl 0.4 MG CAP PO SCH (21:04)
[2020-07-10] MEDS: metroNIDAZOLE 500 MG in Premix Bag 1 BAG IVPB SCH ×3 (05:21→21:08)
[2020-07-10] MEDS: Furosemide 40 MG/4 ML VIAL SLOW IVP SCH ×2 (05:22→14:14)
[2020-07-10 08:19] LABS: #Basophils 0.1 thou/uL (0.0-0.2); #Lymphocytes 0.8 thou/uL (1.20-3.40); #Monocytes 0.9 thou/uL (0.11-0.59); #Neutrophils 8.7 thou/uL (1.40-6.50); %Basophils 0.6 % (0.0-1.0); %Eosinophils 0.5 % (0.0-10.0); %Lymphocytes 7.3 % (21.0-51.0); %Monocytes 8.3 % (0.0-10.0); %Neutrophils 83.3 % (42.0-75.0); Hemoglobin 10.7 g/dL (14.0-18.0); Mean Corpuscular HGB CONC 32.6 g/dL (32.0-36.0); Mean Corpuscular Hemoglobin 31.2 pg (27.0-31.0); Mean Corpuscular Volume 95.7 fL (78.0-98.0); Mean Platelet Volume 7.5 fL (7.4-10.4); Platelet Count 185 thou/uL (130-400); RBC Distribution Width 17.5 % (11.5-14.5); Red Blood Cell (RBC) Count 3.44 mill/uL (4.70-6.10); White Blood Cell (WBC) Count 10.4 thou/uL (4.8-10.8)
[2020-07-10 08:23] LABS: ALT (SGPT) 15 U/L (8-55); AST (SGOT) 20 U/L (5-34); Albumin 2.9 g/dL (3.4-4.8); Alkaline Phosphatase 75 U/L (40-110); Anion Gap 11 mmol/L (10-20); BUN (Urea Nitrogen) 29 mg/dL (8.4-25.7); Bilirubin, Total 0.3 mg/dL (0.2-1.2); CRP (Inflammatory) 3.99 mg/dL (= or < 0.5); Calc. Creatinine Clearance 88 mL/min (70-130); Calcium 8.6 mg/dL (7.8-10.44); Carbon Dioxide 33 mmol/L (23-31); Chloride 104 mmol/L (98-107); Estimated GFR-MDRD 55; Globulin 2.7 g/dL (2.4-3.5); Glucose 121 mg/dL (83-110); Protein, Total 5.6 g/dL (5.8-8.1); Sodium 145 mmol/L (136-145)
[2020-07-10] MEDS: Polyethylene Glycol OPTH DROP 15 ML BOT EA EYE SCH ×2 (08:39→20:14)
[2020-07-10] MEDS: Clopidogrel Bisulfate 75 MG TAB PO SCH (08:40)
[2020-07-10] MEDS: Gabapentin 300 MG CAP PO SCH ×3 (08:40→20:16)
[2020-07-10] MEDS: Ferrous Sulfate 325 MG TAB PO SCH (08:40)
[2020-07-10] MEDS: Fish Oil 1,000 MG CAP PO SCH (08:40)
[2020-07-10] MEDS: Nystatin 500,000 UNITS/5 ML UDCUP SSW SCH ×4 (08:40→20:16)
[2020-07-10] MEDS: Apixaban 5 MG TAB PO SCH ×2 (08:40→20:15)
[2020-07-10] MEDS: Ascorbic Acid 500 mg Chewable Tablet PO SCH (08:40)
[2020-07-10] MEDS: Dronedarone HCl 400 MG TAB PO SCH ×2 (08:40→16:14)
[2020-07-10] MEDS: Saccharomyces boulardii 250 MG CAP PO SCH (08:40)
[2020-07-10] MEDS: Vit A,C & E/Lutein/Minerals Tablet PO SCH (08:40)
[2020-07-10] MEDS: Simethicone Chewable 80 MG TAB PO SCH ×3 (08:40→20:15)
[2020-07-10] MEDS: Sucralfate 1 GM TAB PO SCH ×4 (08:41→20:17)
[2020-07-10] MEDS: LIDOCAINE 5% OINTMENT TOP SCH ×4 (08:41→20:16)
[2020-07-10] MEDS: Stress 600 With Zinc 1 TAB PO SCH (08:41)
[2020-07-10] MEDS: Collagenase 250 UNITS/GM Ointment 30 GM TUBE TOP SCH (08:41)
[2020-07-10] MEDS: Cefepime 2 GM in Sodium Chloride 0.9% 100 ML IVPB SCH ×2 (11:24→21:09)
[2020-07-10] MEDS: Vancomycin HCl 500 MG in Sodium Chloride 0.9% 100 ML IVPB SCH (16:12)
[2020-07-10] MEDS: Vancomycin HCl 750 MG in Sodium Chloride 0.9% 250 ML 250 ML IVPB SCH (16:13)
[2020-07-10] MEDS: Atorvastatin Calcium 40 MG TAB PO SCH (20:15)
[2020-07-10] MEDS: Amlodipine 5 MG TAB PO SCH (20:15)
[2020-07-10] MEDS: Tamsulosin HCl 0.4 MG CAP PO SCH (20:17)
[2020-07-11] MEDS: Furosemide 40 MG/4 ML VIAL SLOW IVP SCH (05:08)
[2020-07-11] MEDS: metroNIDAZOLE 500 MG in Premix Bag 1 BAG IVPB SCH (05:09)
[2020-07-11 09:26] VITALS: BP 131/84; TEMP 97.3
[2020-07-11] MEDS: Cefepime 2 GM in Sodium Chloride 0.9% 100 ML IVPB SCH (09:54)
[2020-07-11] MEDS: Nystatin 500,000 UNITS/5 ML UDCUP SSW SCH ×2 (09:55→13:57)
[2020-07-11] MEDS: Vit A,C & E/Lutein/Minerals Tablet PO SCH (09:56)
[2020-07-11] MEDS: Simethicone Chewable 80 MG TAB PO SCH ×2 (09:56→13:23)
[2020-07-11] MEDS: Clopidogrel Bisulfate 75 MG TAB PO SCH (09:56)
[2020-07-11] MEDS: Ascorbic Acid 500 mg Chewable Tablet PO SCH (09:56)
[2020-07-11] MEDS: Saccharomyces boulardii 250 MG CAP PO SCH (09:56)
[2020-07-11] MEDS: Gabapentin 300 MG CAP PO SCH (09:56)
[2020-07-11] MEDS: Ferrous Sulfate 325 MG TAB PO SCH (09:56)
[2020-07-11] MEDS: Stress 600 With Zinc 1 TAB PO SCH (09:56)
[2020-07-11] MEDS: Fish Oil 1,000 MG CAP PO SCH (09:56)
[2020-07-11] MEDS: Apixaban 5 MG TAB PO SCH (09:57)
[2020-07-11] MEDS: Polyethylene Glycol OPTH DROP 15 ML BOT EA EYE SCH (09:57)
[2020-07-11] MEDS: Dronedarone HCl 400 MG TAB PO SCH (09:57)
[2020-07-11] MEDS: Sucralfate 1 GM TAB PO SCH ×2 (09:57→13:23)
[2020-07-11] MEDS: LIDOCAINE 5% OINTMENT TOP SCH ×2 (09:57→13:23)
[2020-07-11] MEDS: Collagenase 250 UNITS/GM Ointment 30 GM TUBE TOP SCH (09:58)
--- NOTE | 2020-07-12 01:10 | DIS ---
DATE OF ADMISSION: 06/15/2020 DATE OF DISCHARGE: 07/11/2020 PRINCIPAL DIAGNOSIS: Gradual decline and patient has decided on hospice. SECONDARY DIAGNOSES: 1. Left heel osteomyelitis. 2. Peripheral vascular disease. 3. Hypertension. 4. Dyslipidemia. 5. Benign prostatic hypertrophy. 6. Atrial fibrillation. 7. Possible obstructive sleep apnea. 8. Fanconi syndrome. 9. Osteoarthritis. 10. Peripheral neuropathy. 11. Anxiety and depression. 12. Lumbar radiculopathy, status post surgery. COMPLICATIONS: None. ADVERSE REACTIONS: None. PROCEDURES: Physical therapy and wound VAC care. CONSULTATIONS: Wound care MD at the [facility]. HOSPITAL COURSE: Please see yesterday's dictation for details. The patient was supposed to be discharged yesterday, but hospice could not make the arrangements, so he is being discharged today. Since yesterday, he apparently last night was much more somnolent and difficult to arouse, but this afternoon is back to his baseline. Wound VAC has been discontinued, we are just going to do wet-to-dry dressings. Hospice is going to manage and delivering all of his equipments today. No further IV medications and he is going to be off the Eliquis and Multaq as well. Comfort medications along with his gabapentin and his tamsulosin. I will remain as is hospice MD and will discuss with his . I have not seen her yet today. For all other details, please see yesterday's dictation as well as his hospital records. Job ID: [id number]
--- NOTE | 2020-07-15 06:50 | DIS ---
DATE OF ADMISSION: 06/15/2020 DATE OF DISCHARGE: 07/11/2020 PRINCIPAL DIAGNOSIS: Left heel osteomyelitis. SECONDARY DIAGNOSES: 1. Peripheral vascular disease. 2. Hypertension. 3. Dyslipidemia. 4. Atrial fibrillation. 5. Benign prostatic hypertrophy. 6. Depression. 7. Failure to thrive with decreased p.o. intake. 8. Fanconi syndrome. 9. Osteoarthritis. 10. Peripheral neuropathy. 11. Lumbar radiculopathy. COMPLICATIONS: None. ADVERSE REACTIONS: None. PROCEDURES: CT scan of the brain. CONSULTATIONS: Physical Therapy and Occupational Therapy. HOSPITAL COURSE: Patient was admitted after being in the hospital for left heel decubitus. He also was diagnosed with peripheral vascular disease and underwent PTCA and stent to the left posterior tibial. He was recommended long-term IV antibiotics until July 19 and wound care upon transfer here. He has been managing, tolerating the antibiotics and wound care. He went back and saw the wound care MD and underwent debridement and was placed on a wound VAC. Unfortunately, he has not been eating anywhere near enough to sustain a meaningful life. His 3-day calorie count was dismal. The patient refused artificial means of feeding, including IV fluids. He also wanted to be a DNR. I did offer him the option of going up the road to [place] as there was a possibility of untreated sleep apnea with resultant hypercarbia and hypoxemia causing his issues and he did not want to do that. We did place him on a face mask instead of 2 L nasal cannula and that seemed to perk him up a little as did his daughter's visit from [place]. Unfortunately, yesterday and today, he was much more somnolent, agitated and confused. He apparently participated with therapy yesterday afternoon, but hardly been eating and today he stated that he wanted to go home. He just wanted to be not in any pain and he did not want any of this done. When his was at his bedside as well as his daughter, stepdaughter, and when we asked about whether he wanted to go on hospice, and he said what does it mean, stopping all his current treatment, he said yes. He had [facility] and his said she was happy with them and he is okay with their hospice company contacting her. Plan is to keep him just on comfort measures as well as his Flomax and his gabapentin. I really do not see a reason for him to continue his Eliquis and his Multaq as well as all his other medicines, especially when he is eating maybe 200 calories a day. Family is in agreement. DISCHARGE PHYSICAL EXAMINATION: VITAL SIGNS: On the day of discharge, the patient was afebrile, heart rate 75, respirations 22, oxygen saturation 96% on 2 L, blood pressure 137/68. CARDIOVASCULAR SYSTEM: S1-S2 plus. RESPIRATORY SYSTEM: Normal vesicular breath sounds with decreased air entry at the bases. Scattered rhonchi. ABDOMEN: Soft, obese, nontender. EXTREMITIES: Without cyanosis or clubbing. 2+ edema. CENTRAL NERVOUS SYSTEM: Somnolent, but arousable. LABORATORY VALUES: White count 10.4, H and H are 10.7 and 32.9, platelet count 185. Sedimentation rate is 33. Sodium 145, potassium slightly low at 3.0, BUN and creatinine 29 and 1.25. CRP is 3.99. IMPRESSION: 1. Failure to thrive with decreased p.o. intake. 2. Osteomyelitis, left heel. 3. Hypertension. 4. Dyslipidemia. 5. Atrial fibrillation. 6. BPH. 7. Osteoarthritis. 8. Anxiety and depression. 9. Possible untreated sleep apnea. PLAN: Discharge to home when hospice has been arranged, comfort measures. Had a long discussion with patient, his , and his stepdaughter and all questions answered. I will remain his hospice MD. For full details, please see chart. TIME SPENT: Total time spent on this discharge 25 minutes. Job ID: [id number]
--- NOTE | 2020-07-16 11:07 | PQF ---
CLINICAL DOCUMENTATION CLARIFICATION FORM: Dear : Greg Tai MD Date / Time: 07/16/2020 Please exercise your independent, professional judgment in responding to the clarification form. Clinical indicators are provided on the bottom of this form for your review Please check appropriate box(es): [ ] Excisional Debridement: [ ] Excised [ ] Cut away [ ] Other: Depth / layer: (deepest layer of debridement): [ ] Skin [ ] Subcutaneous [ ] Fascia [ ] Muscle [ ] Tendon [ ] Bone Appearance of wound: (e.g., down to fresh bleeding tissue, etc.) Margins: (please specify): / x x Instruments used: [ ] Scissors [ ] Scalpel [ ] Other: [ ] Non-excisional Debridement: (Removal by ?ushing, brushing, chemical, or washing) Depth / layer: (deepest layer of debridement): [ ] Skin [ ] Subcutaneous [ ] Fascia [ ] Muscle [ ] Tendon [ ] Bone [ ] Incision and Drainage only (No Debridement): Depth: [ ] Skin [ ] Subcutaneous [ ] Fascia [ ] Muscle [ ] Tendon [ ] Bone [ ] Escharectomy [ ] Other procedure diagnosis (Please specify if any) [ x ] Unable to determine Physician Signature: Date/Time: For continuity of documentation, please document condition throughout progress notes and discharge summary. Thank You. To be completed by CDI/Coding staff for physician review: Present Clinical Indicators - Signs / Symptoms / Labs Results and Location in Medical Record [ ] I&D [ ] Cutting away of tissue (e.g., scissors, scalpel, etc.) [x] His left heel wound was debrided yesterday Progress notes on 06/18 [x] Pt performed sharp debridement of pt L foot wound today. Blank note on 06/17 Present Risk Factors Results and Location in Medical Record [x] Chronically wheel angie bound H&P on 06/16 [x] Calcaneal pressure ulcer H&P on 06/16 [ ] [ ] Present Treatments Results and Location in Medical Record [ ] Surgical intervention [x] Underwent debridement and was placed on wound VAC Discharge summary on 07/11 [x] Left heel with dressing Progress notes on 06/17 [ ] CDS/Physical Chemistry Teacher Signature: AAS Phone #: Date/Time: 07/16/2020 This is a permanent part of the Medical Record [facility]
--- NOTE | 2020-07-16 11:19 | PQF ---
CLINICAL DOCUMENTATION CLARIFICATION FORM: Dear : Greg Willard MD Date / Time: 07/16/2020 Please exercise your independent, professional judgment in responding to the clarification form. Clinical indicators are provided on the bottom of this form for your review Please check appropriate box(es): to clarify the presence of sepsis [ ] Sepsis resolved during this admission [ x ] Sepsis resolved before this admission [ ] Other diagnosis (Please specify if any) [ ] Unable to determine Physician Signature: Date/Time: For continuity of documentation, please document condition throughout progress notes and discharge summary. Thank You. To be completed by CDI/Coding staff for physician review: Present Clinical Indicators - Signs / Symptoms / Labs Results and Location in Medical Record [x] Sepsis resolved H&P on 06/16 [x] Overall, the patient is doing well and has no signs of sepsis or new infections. H&P on 06/16 [x] Continue IV antibiotics secondary to osteomyelitis H&P on 06/16 [x] Patient was transferred here to [facility] for continued antibiotic therapy and physical therapy H&P on 06/16 Present Risk Factors Results and Location in Medical Record [x] Aged person 85 yrs H&P on 06/16 [x] osteomyelitis H&P on 06/16 Present Treatments Results and Location in Medical Record [x] Continue to monitor white count and any signs of sepsis H&P on 06/16 [x] Vancomycin Xnp706 mg IV Medication from 06/16 to 06/24 [ ] [ ] CDS/[employer] Crm Developer Signature: AAS Phone #: Date/Time: 07/16/2020 This is a permanent part of the Medical Record [facility]
== END 2020-07-11 16:00 | disposition hospice, home (50) | DRG 539 ==
LOC: NAV ACUTE 20:32 → UNDOADMIN 20:32
PROVIDERS: ADMIT Family Medicine; ATTEND Family Medicine
DX: M86.9 Osteomyelitis, unspecified (principal); J96.01 Acute respiratory failure with hypoxia; G93.41 Metabolic encephalopathy; E72.09 Other disorders of amino-acid transport; R53.1 Weakness; I48.91 Unspecified atrial fibrillation; I89.0 Lymphedema, not elsewhere classified; I10 Essential (primary) hypertension; I73.9 Peripheral vascular disease, unspecified; M19.90 Unspecified osteoarthritis, unspecified site; N40.0 Benign prostatic hyperplasia without lower urinary tract symptoms; E78.5 Hyperlipidemia, unspecified; G62.9 Polyneuropathy, unspecified; Z96.651 Presence of right artificial knee joint; K21.9 Gastro-esophageal reflux disease without esophagitis; F41.9 Anxiety disorder, unspecified; F32.9 Major depressive disorder, single episode, unspecified; E66.01 Morbid (severe) obesity due to excess calories; L89.629 Pressure ulcer of left heel, unspecified stage; Z20.828 Contact with and (suspected) exposure to other viral communicable diseases; R53.81 Other malaise; D63.8 Anemia in other chronic diseases classified elsewhere; G47.33 Obstructive sleep apnea (adult) (pediatric); M54.16 Radiculopathy, lumbar region; Z87.891 Personal history of nicotine dependence; Z99.3 Dependence on wheelchair; Z79.899 Other long term (current) drug therapy; Z79.01 Long term (current) use of anticoagulants; Z88.8 Allergy status to other drugs, medicaments and biological substances; Z68.39 Body mass index [BMI] 39.0-39.9, adult
CPT/HCPCS: 36415; 70450; 71045; 80048; 80053; 80202; 82565; 83880; 85014; 85018; 85025; 85049; 85652; 86140; 87040; 87045; 87046; 87427; 87449; 97602; J0692; J1940; J3370; J3490; J7050